=== PATIENT | male | born 1940 | race Caucasian/White ===

== ENCOUNTER 2020-10-16 10:06 | Day surgery (SDC) | payer MEDICARE, OTHER ==
--- NOTE | 2020-10-13 14:58 | HP ---
DATE OF SURGERY: 10/16/2020 HISTORY OF PRESENT ILLNESS: The patient presents with a pilonidal cyst. He states this has been going on for years. He has been having symptoms on and off. He wishes for surgical intervention. PAST MEDICAL HISTORY: Hypertension, hyperlipidemia, coronary artery disease, diabetes. PAST SURGICAL HISTORY: None recent. ALLERGIES: NKDA. MEDICATIONS: Amlodipine, aspirin, atorvastatin, carvedilol, Plavix, fluticasone, Glipizide, hydralazine, Invokana, isosorbide, losartan, triamterene, hydrochlorothiazide. FAMILY HISTORY: None reported. SOCIAL HISTORY: None reported. REVIEW OF SYSTEMS: CONSTITUTIONAL: Denies fever or chills. CHEST: Denies shortness of breath. CVS: Denies chest pain. ABDOMEN: Denies abdominal pain, nausea, vomiting, diarrhea, constipation or rectal bleeding. INTEGUMENTARY: Pilonidal cyst. PHYSICAL EXAMINATION: GENERAL: No acute distress. CHEST: Nonlabored. No shortness of breath. CVS: Regular rate and rhythm. : Pilonidal cyst. EXTREMITIES: No edema. NEUROLOGIC: Alert. PSYCHIATRIC: Appropriate. 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 PLAN: Excision of pilonidal cyst with Dr. Phillip Mcfadden. As dictated by Nani Morales NP.
[~2020-10-16 10:06] MED LIST: Lactated Ringers 1,000 ML IV ONE; Sensorcaine 0.25% 10 ML ONE
[2020-10-16] MEDS ORDERED: Lactated Ringers 1,000 ML IV ONE (10:37)
[2020-10-16 10:56] LABS: Hematocrit 44.3 % (42-50); Hemoglobin 14.8 gm/dl (12.5-18.0); Mean Cell Volume 100.9 fl (78-100); Mean Corpuscular Hemoglobin 33.7 pg (26-32); Mean Corpuscular Hgb Concent. 33.4 g/dl (32-36); Mean Platelet Volume 10.7 fl (7.5-11.0); Platelet Count 216 K/mm3 (150-450); Red Blood Count 4.39 M/mm3 (4.1-5.6); Red Cell Distribution Width 13.2 % (11.5-14.0)
[2020-10-16] MEDS ORDERED: Lactated Ringers 1,000 ML IV SCH (11:00)
[2020-10-16 11:26] LABS: ALBUMIN 3.9 g/dL (3.5-5.0); ANION GAP 8.8 MEQ/L (5-15); BILIRUBIN,TOTAL 1.1 mg/dL (0.2-1.3); Calcium 9.2 mg/dL (8.4-10.2); Creatinine 1 1.51 mg/dL (0.66-1.25); EST GLOMERULAR FILTRATION RATE 47.9 ML/MIN; Potassium 4.5 mmol/L (3.5-5.1); Total Protein 6.8 g/dL (6.3-8.2)
[2020-10-16] MEDS ORDERED: Versed 2 MG/2 ML Injection ONE (12:58)
[2020-10-16] MEDS ORDERED: SUBLIMAZE 100 MCG/2 ML ONE (12:58)
[2020-10-16] MEDS ORDERED: Quelicin Fliptop 200 MG/10 ML ONE (12:58)
[2020-10-16] MEDS ORDERED: DIPRIVAN 200 MG/20 ML IV ONE (12:58)
[2020-10-16] MEDS ORDERED: KEFZOL 1 GM ONE (13:15)
[2020-10-16] MEDS ORDERED: Zemuron 100 MG/10 ML ONE (13:15)
[2020-10-16] MEDS ORDERED: BRIDION 200MG/2ML IV ONE (13:28)
--- NOTE | 2020-10-16 14:27 | OP ---
SURGERY DATE/TIME: 10/16/2020 1256 PREOPERATIVE DIAGNOSIS: Pilonidal cyst asymptomatic. POSTOPERATIVE DIAGNOSIS: Pilonidal cyst asymptomatic. PROCEDURE: Incision pilonidal cyst and sinuses. SURGEON: Phillip Mcfadden M.D. ANESTHESIA: General. COMPLICATIONS: None. POSITION: Prone. CONDITION: Stable. INDICATION: The patient has symptomatic pilonidal disease. He has a tract and a boil in the lower midline in the pilonidal area. DESCRIPTION OF PROCEDURE: He was taken to surgery. Prone position. Routine prep and drape. Elliptical excision. It had to be extended a little bit left and cephalad to remove the lateral infected tract. All pilonidal disease removed from the presacral fascia. Hemostasis obtained with electrocautery. It was packed with 0.25 inch Iodoform. It looked excellent. The patient tolerated the procedure well.
[2020-10-16 14:52] VITALS: BP 159/82; PULSE 56; O2SAT 96
== END 2020-10-16 15:02 | disposition home or self-care (01) ==
LOC: SDC 10:06
PROVIDERS: ATTEND Surgery
DX: L05.91 Pilonidal cyst without abscess (principal); I10 Essential (primary) hypertension; E78.5 Hyperlipidemia, unspecified; E11.9 Type 2 diabetes mellitus without complications; Z79.899 Other long term (current) drug therapy
CPT/HCPCS: 36415; 80053; 82947; 85027; 87070; J0330; J0690; J2250; J2704; J3010

== ENCOUNTER 2023-11-18 00:47 | Emergency (ER) | payer MEDICARE, OTHER ==
--- NOTE | 2023-11-18 00:58 | ERPHSYRPT ---
- History of Present Illness Time Seen by Provider: 11/18/23 00:57 Source: patient, EMS Exam Limitations: no limitations Physician History: This is an 82-year-old white male patient of Dr. Corbett and railroad police Dr. Tera Louis and presents to the emergency department soon after he fell. The patient got up to use the restroom and tripped over at table that was on rollers fell forward hitting his head and face on the right side. He states he did not lose consciousness. Patient denies chest pain. Patient denies shortness of breath. Patient denies abdominal pain. Patient has swelling around the right eye and has tenderness and bruising in the right cheek. Patient is obese. He has a history of diabetes, hypertension, chronic renal disease (Dr. Baez) and coronary artery disease. Patient is on Plavix. Patient has a history of chronic angina. Occurred: just prior to arrival Reason for Fall: tripped, fell from standing pos Injuries/Pain Location: head, face Loss of Consciousness: no loss of consciousness Severity of Pain-Max: none Severity of Pain-Current: none Associated Symptoms (Fall): denies symptoms Allergies/Adverse Reactions: morphine Adverse Reaction (Intermediate, Verified 11/18/23 00:50) Itching Home Medications: Amlodipine Besylate 5 mg [Norvasc 5 mg] 5 mg PO DAILY 10/07/20 [History] Glipizide Xl mg [Glucotrol Xl] 10 mg PO BID 10/07/20 [History] Isosorbide Mononitrate 30 mg [Imdur 30 MG] 90 mg PO DAILY 10/07/20 [History] Losartan Potassium 50 mg [Cozaar 50 MG] 50 mg PO BID 10/07/20 [History] Nitroglycerin 0.4 mg Tablet [Nitrostat 0.4 MG Tablet] 0.4 mg SL UD 10/07/20 [History] Atorvastatin Calcium 10 mg PO DAILY 11/18/23 [History] Carvedilol 12.5 mg [Coreg 12.5 mg] 25 mg PO BID 11/18/23 [History] Clopidogrel Bisulfate [Plavix] 75 mg PO DAILY 11/18/23 [History] Furosemide 20 mg [Lasix 20 mg] 20 mg PO DAILY 11/18/23 [History] Glipizide 10 mg [Glucotrol 10 MG] 10 mg PO BID 11/18/23 [History] Omeprazole 20 mg PO DAILY 11/18/23 [History] Pentoxifylline 400 mg PO DAILY 11/18/23 [History] Ranolazine 500 MG [Ranexa 500 MG] 1,000 mg PO BID 11/18/23 [History] Hx Tetanus, Diphtheria Vaccination/Date Given: Yes Hx Influenza Vaccination/Date Given: Yes Hx Pneumococcal Vaccination/Date Given: Yes Travel Risk - International Travel Have you traveled outside of the country in past 3 weeks: No - Coronavirus Screening Are you exhibiting any of the following symptoms?: No Close contact with a COVID-19 positive Pt in past 14-21 Days: No - Review of Systems Constitutional: No Symptoms Eyes: No Symptoms Ears, Nose, & Throat: No Symptoms Respiratory: No Symptoms Cardiac: No Symptoms Abdominal/Gastrointestinal: No Symptoms Genitourinary Symptoms: No Symptoms Musculoskeletal: No Symptoms Skin: Other Neurological: No Symptoms (Bruising and swelling around the right eye and on the right cheek) Psychological: No Symptoms Endocrine: No Symptoms Hematologic/Lymphatic: No Symptoms Immunological/Allergic: No Symptoms All Other Systems: Reviewed and Negative - Past Medical History Pertinent Past Medical History: Yes Neurological History: Peripheral Neuropathy ENT History: No Pertinent History Cardiac History: Angina, Hypertension Respiratory History: No Pertinent History Endocrine Medical History: Diabetes Type II Musculoskeletal History: No Pertinent History, Osteoarthritis GI Medical History: No Pertinent History History: Other Psycho-Social History: No Pertinent History Male Reproductive Disorders: Prostate Cancer Other Medical History: 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 R TSA, PAST CARDIAC REHAB. 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 mesh to right flank area. - Social History Smoking Status: Never smoker Exposure to second hand smoke: No Drug Use: none Patient Lives Alone: No - Nursing Vital Signs Nursing Vital Signs: Initial Vital Signs Temperature 98.9 F 11/18/23 00:47 Pulse Rate 60 11/18/23 00:47 Respiratory Rate 18 11/18/23 00:47 Blood Pressure 91/49 11/18/23 00:47 O2 Sat by Pulse Oximetry 95 11/18/23 00:47 Pain Scale Pain Intensity 0 - Opp Coma Score Best Eye Response (Opp): (4) open spontaneously Best Verbal Response (Shoshana): (5) oriented Best Motor Response (Opp): (6) obeys commands Shoshana Total: 15 - Physical Exam General Appearance: no apparent distress, alert, obese Head Injury: ecchymosis (Around right eye and on right cheek), swelling (Around right eye and on right cheek), tenderness (Around right eye and on right cheek) Eye Exam: PERRL/EOMI, eyes nml inspection ENT Exam: airway nml, hearing grossly normal, No evidence of ENT injury, No hemotympanum Neck Exam: supple, trachea midline, full range of motion, normal alignment, normal inspection Respiratory/Chest Exam: normal breath sounds, No chest tenderness, No respirat ory distress, No ecchymosis, No crepitus Cardiovascular Exam: normal heart sounds, regular rate/rhythm Gastrointestinal Exam: soft, normal bowel sounds, No tenderness Back Exam: normal inspection, normal range of motion, No CVA tenderness, No vertebral tenderness Extremity Exam: normal inspection, normal range of motion, pelvis stable Neurologic Exam: alert, oriented x 3, cooperative, spring repairer helper hand II-XII nml as tested, normal mood/affect, sensation nml Skin Exam: normal color, warm, dry, ecchymosis (Tenderness and swelling as stated above) SpO2 Interpretation: normal O2 Delivery: Room Air - Course Nursing assessment & vital signs reviewed: Yes EKG Interpreted by Me: RATE (56), Sinus Rhythm, NORMAL AXIS, NORMAL INTERVALS, Right Bundle Branch Block, Non-specific ST Changes, Other (No acute ischemic changes on today's twelve-lead EKG) Ordered Tests: Active Orders 24 hr Category Date Time Status Zig Zag Stitcher STAT Care 11/18/23 00:59 Active EKG-ER Only STAT Care 11/18/23 00:58 Active IV Insertion STAT Care 11/18/23 00:58 Active CERVICAL SPINE WO CONTRAST [CT] Stat Exams 11/18/23 01:34 Completed FACIAL BONES WO CONTRAST [CT] Stat Exams 11/18/23 01:30 Completed HEAD WITHOUT CONTRAST [CT] Stat Exams 11/18/23 01:30 Completed CBC W DIFF Stat Lab 11/18/23 01:20 Completed CMP Stat Lab 11/18/23 01:20 Completed ETHYL ALCOHOL Stat Lab 11/18/23 01:20 Completed MAGNESIUM Stat Lab 11/18/23 01:20 Completed NT PRO BNPII Stat Lab 11/18/23 01:20 Completed TROPONIN Q4H Lab 11/18/23 01:20 Completed TROPONIN Q4H Lab 11/18/23 04:22 Completed TROPONIN Q4H Lab 11/18/23 09:00 Ordered UA W/RFX UR CULTURE Stat Lab 11/18/23 05:07 Completed Medication Summary Generic Name Dose Route Start Last Admin Trade Name Freq PRN Reason Stop Dose Admin Sodium Chloride 500 mls @ 500 mls/hr 11/18/23 08:21 Sodium Chloride 0.9% 500 Ml IV 11/18/23 09:20 .Q1H ONE Discontinued Medications Generic Name Dose Route Start Last Admin Trade Name Freq PRN Reason Stop Dose Admin Enoxaparin Sodium 105 mg 11/18/23 08:09 11/18/23 08:18 Enoxaparin Sodium 120 Mg/0.8 Ml Syringe SQ 11/18/23 08:10 105 mg 1XONLY ONE Administration Enoxaparin Sodium Confirm 11/18/23 08:15 Enoxaparin Sodium 120 Mg/0.8 Ml Syringe Administered 11/18/23 08:16 Dose 120 mg SQ .STK-MED ONE Furosemide 40 mg 11/18/23 04:28 11/18/23 04:46 Furosemide 40 Mg/4 Ml Vial IV 11/18/23 04:29 40 mg STAT ONE Administration Furosemide Confirm 11/18/23 04:45 Furosemide 40 Mg/4 Ml Vial Administered 11/18/23 04:46 Dose 40 mg .ROUTE .STK-MED ONE Lab/Rad Data: Laboratory Result Diagrams 11/18/23 01:20 11/18/23 01:20 Laboratory Results 11/18/23 11/18/23 11/18/23 Range/Units 05:07 04:22 01:20 WBC (4.0-10.5) x10^3/uL RBC (4.1-5.6) x10^6/uL Hgb (12.5-18.0) g/dL Hct (42-50) % MCV (78-100) fL MCH (26-32) pg MCHC (32-36) g/dL RDW (11.5-14.0) % Plt Count (150-450) x10^3/uL MPV (7.5-11.0) fL Gran % (36.0-66.0) % Immature Gran % (Auto) (0.00-0.4) % Nucleat RBC Rel Count (0.00-0.1) % Eos # (Auto) (0-0.5) x10^3/uL Immature Gran # (Auto) (0.00-0.03) x10^3u/L Absolute Lymphs (auto) (1.0-4.6) x10^3/uL Absolute Monos (auto) (0.0-1.3) x10^3/uL Absolute Nucleated RBC (0.00-0.01) x10^3u/L Lymphocytes % (24.0-44.0) % Monocytes % (0.0-12.0) % Eosinophils % (0.00-5.0) % Basophils % (0.0-0.4) % Absolute Granulocytes (1.4-6.9) x10^3/uL Basophils # (0-0.4) x10^3/uL Sodium (137-145) mmol/L Potassium (3.5-5.1) mmol/L Chloride (98-107) mmol/L Carbon Dioxide (22-30) mmol/L Anion Gap (5-15) MEQ/L BUN (9-20) mg/dL Creatinine (0.66-1.25) mg/dL Estimated GFR ML/MIN Glucose (74-106) mg/dL Calcium (8.4-10.2) mg/dL Magnesium (1.6-2.3) mg/dL Total Bilirubin (0.2-1.3) mg/dL AST (17-59) U/L ALT (0-50) U/L Alkaline Phosphatase (38-126) U/L Troponin I 3.750 H* 4.390 H* (0.000-0.034) ng/mL NT-Pro-B Natriuret Pep (<300) pg/mL Serum Total Protein (6.3-8.2) g/dL Albumin (3.5-5.0) g/dL Urine Color Dark Yellow (Yellow) Urine Appearance Clear (Clear) Urine pH 5.0 (4.6-8.0) Ur Specific [place] 1.025 (1.005-1.030) Urine Protein 30 (Negative) Urine Glucose (UA) Negative (Negative) mg/dL Urine Ketones Trace A (Negative) Urine Blood Negative (Negative) Urine Nitrite Negative (Negative) Urine Bilirubin Negative (Negative) Urine Urobilinogen 1.0 A (0.2) mg/dL Ur Leukocyte Esterase Negative (Negative) U Hyaline Cast (Auto) 6-10 A (0-2) /LPF Urine Microscopic RBC 0-2 (0-5) /HPF Urine Microscopic WBC 0-2 (0-5) /HPF Ur Epithelial Cells None Seen (None Seen) /HPF Urine Bacteria None Seen (None Seen) /HPF Urine Culture Reflexed NO (NO) Ethyl Alcohol (0-10) mg/dL 11/18/23 11/18/23 Range/Units 01:20 01:20 WBC 6.2 (4.0-10.5) x10^3/uL RBC 3.17 L (4.1-5.6) x10^6/uL Hgb 10.8 L (12.5-18.0) g/dL Hct 33.3 L (42-50) % MCV 105.0 H (78-100) fL MCH 34.1 H (26-32) pg MCHC 32.4 (32-36) g/dL RDW 13.5 (11.5-14.0) % Plt Count 159 (150-450) x10^3/uL MPV 10.6 (7.5-11.0) fL Gran % 80.6 H (36.0-66.0) % Immature Gran % (Auto) 0.8 H (0.00-0.4) % Nucleat RBC Rel Count 0.0 (0.00-0.1) % Eos # (Auto) 0.02 (0-0.5) x10^3/uL Immature Gran # (Auto) 0.05 H (0.00-0.03) x10^3u/L Absolute Lymphs (auto) 0.59 L (1.0-4.6) x10^3/uL Absolute Monos (auto) 0.52 (0.0-1.3) x10^3/uL Absolute Nucleated RBC 0.00 (0.00-0.01) x10^3u/L Lymphocytes % 9.6 L (24.0-44.0) % Monocytes % 8.4 (0.0-12.0) % Eosinophils % 0.3 (0.00-5.0) % Basophils % 0.3 (0.0-0.4) % Absolute Granulocytes 4.96 (1.4-6.9) x10^3/uL Basophils # 0.02 (0-0.4) x10^3/uL Sodium 134 L (137-145) mmol/L Potassium 4.0 (3.5-5.1) mmol/L Chloride 105 (98-107) mmol/L Carbon Dioxide 24 (22-30) mmol/L Anion Gap 8.8 (5-15) MEQ/L BUN 36 H (9-20) mg/dL Creatinine 1.74 H (0.66-1.25) mg/dL Estimated GFR 39.1 ML/MIN Glucose 142 H (74-106) mg/dL Calcium 8.6 (8.4-10.2) mg/dL Magnesium 2.0 (1.6-2.3) mg/dL Total Bilirubin 0.90 (0.2-1.3) mg/dL AST 40 (17-59) U/L ALT 21 (0-50) U/L Alkaline Phosphatase 64 (38-126) U/L Troponin I (0.000-0.034) ng/mL NT-Pro-B Natriuret Pep 3120 (<300) pg/mL Serum Total Protein 6.3 (6.3-8.2) g/dL Albumin 3.4 L (3.5-5.0) g/dL Urine Color (Yellow) Urine Appearance (Clear) Urine pH (4.6-8.0) Ur Specific [place] (1.005-1.030) Urine Protein (Negative) Urine Glucose (UA) (Negative) mg/dL Urine Ketones (Negative) Urine Blood (Negative) Urine Nitrite (Negative) Urine Bilirubin (Negative) Urine Urobilinogen (0.2) mg/dL Ur Leukocyte Esterase (Negative) U Hyaline Cast (Auto) (0-2) /LPF Urine Microscopic RBC (0-5) /HPF Urine Microscopic WBC (0-5) /HPF Ur Epithelial Cells (None Seen) /HPF Urine Bacteria (None Seen) /HPF Urine Culture Reflexed (NO) Ethyl Alcohol < 10 (0-10) mg/dL - Progress Progress Note: 11/18/23 04:32 This patient's medical issue is 1 of moderate to high complexity. Level complex in the workup performed is based on review the patient's past medical history, review of patient's medication list, review of patient drug allergy list, h istory of present illness and physical findings on examination. Workup in this patient includes placement of intravenous line, CT scan of the head face and cervical spine. Twelve-lead EKG, troponin level, BNP level, urinalysis, CBC, CMP and magnesium level. The CT scans were all interpreted by the radiologist and I reviewed the impression: CT scan of the head without contrast shows age-related involutional changes with mild microvascular ischemic changes. There is no calvarial fracture or in tracranial or extra-axial hematoma. CT scan of the facial bones without contrast shows no definite maxillofacial bone fractures or dislocations. There is evidence of bilateral sinusitis. CT scan of cervical spine without contrast shows no acute fracture or subluxation. There is multilevel degenerative changes present. 11/18/23 08:04 Patient's spouse provided additional, independent history. She came later after the ambulance/paramedics dropped this patient off and provided additional history. Patient actually has chronic intermittent angina. She states that he has been taking nitroglycerin often. This is in contrast with patient stating he does not have chest pain. 11/18/23 08:12 I did speak with Dr. Tera Louis, the patient's railroad police in consultation. He stated to give a single subcutaneous dose of Lovenox at 1 mg/kg at this time subcutaneously. He is going to speak with the [facility] transfer center and admitting. They are to call us back when a potential bed is available. He stated that if the hospital is unable to accommodate us in transfer relatively soon, we may need to discuss transfer of this patient to [facility] and use a different cardiology group. 11/18/23 09:[address] the [facility] hospitalist, Dr. Peres, regarding this patient. I reviewed the patient history, presenting complaint, physical findings, workup and results. I also spoke with him regarding the discussion I had with Dr. Louis, the patient's railroad police. Dr. Walls that he is also spoken with Dr. Louis. The plan is for this patient to undergo cardiac catheterization tomorrow, 11/19/2023. Patient has been accepted to [facility] and will be transferred when a bed becomes available. We will continue every 12 hour Lovenox subcutaneously and continue monitoring here in the emergency department. 11/18/23 09:20 Counseled pt/family regarding: lab results, diagnosis, rad results Medical Desision Making - Independent Historian Additional History obtained from: Spouse - Diagnostic Testing Diagnostic test were ordered, analyzed, and reviewed by me: Yes Radiological Interpretation: Reviewed by me, Teleradiologist Report - Risk of complications The pt has a high risk of morbidity or mortality based on: Decision regarding hospitilization or escalation of hosp level of care - Departure Departure Disposition: Transfer Clinical Impression: Fall with no significant injury, Elevated troponin, Elevated brain natriuretic peptide (BNP) level, Non-STEMI (non-ST elevated myocardial infarction) Condition: Fair Critical Care Time: No Referrals: CRIS CORBETT [Primary Care Provider] - Follow up/PCP as directed
[2023-11-18 01:00] VITALS: TEMP 98.9
[2023-11-18 01:24] LABS: Absolute Neutrophil Ct (ANC) 4.96 x10^3/uL (1.4-6.9); BASOPHIL % 0.3 % (0.0-0.4); Basophil (Absolute #) 0.02 x10^3/uL (0-0.4); Eosinophil % 0.3 % (0.00-5.0); Eosinophil (Absolute #) 0.02 x10^3/uL (0-0.5); Hematocrit 33.3 % (42-50); Hemoglobin 10.8 g/dL (12.5-18.0); IMMATURE GRAN # 0.05 x10^3u/L (0.00-0.03); IMMATURE GRAN % 0.8 % (0.00-0.4); Lymphocyte (Absolute #) 0.59 x10^3/uL (1.0-4.6); Lymphocytes % 9.6 % (24.0-44.0); Mean Corpuscular Hemoglobin 34.1 pg (26-32); Mean Corpuscular Hgb Concent. 32.4 g/dL (32-36); Mean Platelet Volume 10.6 fL (7.5-11.0); Monocyte (Absolute #) 0.52 x10^3/uL (0.0-1.3); Monocytes % 8.4 % (0.0-12.0); Neutrophil % 80.6 % (36.0-66.0); Platelet Count 159 x10^3/uL (150-450); Red Blood Count 3.17 x10^6/uL (4.1-5.6); Red Cell Distribution Width 13.5 % (11.5-14.0); White Blood Count 6.2 x10^3/uL (4.0-10.5)
[2023-11-18 01:50] LABS: ALBUMIN 3.4 g/dL (3.5-5.0); ALKALINE PHOSPHATASE 64 U/L (38-126); ANION GAP 8.8 MEQ/L (5-15); BLOOD UREA NITROGEN 36 mg/dL (9-20); CHLORIDE 105 mmol/L (98-107); Calcium 8.6 mg/dL (8.4-10.2); Carbon Dioxide 24 mmol/L (22-30); Creatinine 1 1.74 mg/dL (0.66-1.25); EST GLOMERULAR FILTRATION RATE 39.1 ML/MIN; ETHYL ALCOHOL < 10 mg/dL (0-10); Glucose 142 mg/dL (74-106); NT PRO BNPII 3120 pg/mL (<300); SGOT/AST 40 U/L (17-59); SGPT/ALT 21 U/L (0-50); SODIUM 134 mmol/L (137-145); Total Protein 6.3 g/dL (6.3-8.2)
--- NOTE | 2023-11-18 02:17 | XRAY ---
CLINICAL HISTORY:Fall injury COMPARISON:04/18/2015 TECHNIQUE:Axial non-contrast CT scan of the brain was performed from the skull base to the high parietal region. FINDINGS: No definite calvarial fractures. No intracerebral or extra axial hematoma. Relatively accentuated bilateral cerebral periventricular deep white matter hypodensities with scattered tiny hypodense foci suggestive of microvascular ischemic changes. Dougherty-white matter differentiation is maintained. Normal CT appearance of the posterior fossa structures namely the cerebellar hemispheres, brainstem, and cerebellar peduncles. Dilated ventricular system, cortical sulci, and extra-axial CSF spaces No midline shifts or deformity. The osseous structures in the skull base are unremarkable. Prominent occipital protuberance. The scanned paranasal sinuses show bilateral maxillary antrostomy, ethmoidectomies, and middle turbinectomy with mild lamellar and focal mucosal thickening of the maxillary antra, ethmoidal air cells, and sphenoid sinuses. IMPRESSION: 1. No calvarial fractures, intracerebral or extra axial hematoma. 2. Age-related brain involutional changes with mild microvascular ischemic changes have progressed since the last study. Electronically Signed by: Carmita Stein MD. (11/18/2023 02:12:56 EST)
--- NOTE | 2023-11-18 02:39 | XRAY ---
CLINICAL HISTORY:Fall injury COMPARISON:None. TECHNIQUE:An axial non-contrast CT scan of the facial bones was performed, with sagittal and coronal multiplanar reconstruction. Images were sent to PACs for interpretation. FINDINGS: Right sharon-orbital subcutaneous edema/thickening is most evident along the zygomatic-orbital and fronto-orbital regions. No definite fractures were noted with preserved integrity of the maxillary bones, orbital farrell, pterygoid plates, zygomatic arches, alveolar ridge and mandible. Normal temporomandibular joints. The nasal bones are intact with no fractures. Sharon-apical lucent cyst seen related to the root of the right upper 1st molar tooth bulging into the right maxillary antrum and measuring about 1 x 0.6 cm A well-defined ovoid nodule is seen at the right side of the cheek involving the subcutaneous tissue and related to the skin measuring 9 x 7 mm. Evidence of bilateral maxillary antrostomy, ethmoidectomies and middle turbinectomy. Mild lamellar and focal mucosal thickening of the maxillary antra, ethmoidal air cells and sphenoid sinuses. Subtle bowing of the nasal septum convex to the right side with the focal thing of the inferior aspect of its cartilaginous segment. IMPRESSION: 1. No definite fractures of the maxillo-facial bones. 2. Sharon-apical lucent cyst related to the right upper 1st molar tooth root. 3. Right cheek subcutaneous nodule, possibly sebaceous cyst. Advise clinical correlation. 4. Bilateral maxillary, ethmoidal and sphenoidal sinusitis. Electronically Signed by: Carmita Stein MD. (11/18/2023 02:34:27 EST)
--- NOTE | 2023-11-18 02:48 | XRAY ---
CLINICAL HISTORY:Fall injury COMPARISON:None. TECHNIQUE:Thin axial CT of the cervical spine was performed with sagittal and coronal reconstructions without contrast. FINDINGS: Straightening of the cervical spine possibly due to neck muscle spasm. Minimal spondylolisthesis of C3 over C4 and C4 over C5 vertebrae. No definite fractures or subluxation noted. Normal atlano-occiptal articulation. The vertebral bodies are normal in height. No lytic or sclerotic bone lesion. Preserved bony spiny canal Degenerative changes of the atlanoaxial articulation and subaxial spine. Narrowed C5-C6 and C6-C7 disc heights and partial narrowing of C2-C3 and C4-C5 disc heights. Multilevel facet joint arthropathy. Calcificaiton of the ligamentum nuchae. Vertebral artery calcification is noted. Level by Level analysis: C2-C3: Mild uncovertebral hypertrophy with mild neuroforaminal stenosis. No central canal stenosis. C3-C4: No central canal or neuroforaminal stenosis. C4-C5: Mild uncovertebral hypertrophy with mild right neuroforaminal stenosis. No central canal stenosis. C5-C6: small posterior disc-osteophyte complex. No significant central canal or neuroforaminal stenosis. C6-C7: disc calcification with no central canal or neuroforaminal stenosis. IMPRESSION: 1. No definite fractures or dislocations were noted. 2. Straightening of the cervical spine possibly due to neck muscle spasm. 3. C3-C4 and C4-C5 grade I spondylolisthesis. 4. Degenerative changes of the cervical spine and multilevel disc space narrowing. 5. Multilevel facet joint arthropathy. Electronically Signed by: Carmita Stein MD. (11/18/2023 02:43:04 EST)
[2023-11-18] MEDS ORDERED: Lasix 40 MG/4 ML IV ONE (04:28)
[2023-11-18] MEDS ORDERED: Lasix 40 MG/4 ML ONE (04:45)
[2023-11-18 05:41] LABS: Appearance Clear (Clear); Bacteria None Seen /HPF (None Seen); Bilirubin Negative (Negative); Blood Negative (Negative); Epithelial Cells None Seen /HPF (None Seen); Glucose, Urine Negative (Negative); Ketones Trace (Negative); Leukocyte Esterase Negative (Negative); Nitrite Negative (Negative); Protein,Urine Dip 30 (Negative); RBC 0-2 /HPF (0-5); Specific Gravity 1.025 (1.005-1.030); WBC 0-2 /HPF (0-5)
[2023-11-18 05:42] LABS: ADD URINE CULTURE? NO (NO)
[2023-11-18] MEDS ORDERED: ENOXAPARIN SODIUM SQ ONE ×2 (08:09→08:15)
[2023-11-18] MEDS ORDERED: Sodium Chloride 0.9% 500 ML 500 ML IV ONE (08:21)
[2023-11-18] MEDS ORDERED: Sodium Chloride 0.9% 500 ML 0 ML IV ONE (10:10)
[2023-11-18 15:41] VITALS: BP 123/53; RESP 17
[2023-11-18 17:25] LABS: ALBUMIN 3.6 g/dL (3.5-5.0); ANION GAP 10.6 MEQ/L (5-15); BILIRUBIN,TOTAL 0.6 mg/dL (0.2-1.3); Calcium 8.7 mg/dL (8.4-10.2); Creatinine 1 2.07 mg/dL (0.66-1.25); EST GLOMERULAR FILTRATION RATE 31.8 ML/MIN; Potassium 3.7 mmol/L (3.5-5.1); Total Protein 6.6 g/dL (6.3-8.2)
[2023-11-18 18:12] VITALS: PULSE 66; O2SAT 91
== END 2023-11-18 18:34 | disposition short-term general hospital (02) ==
LOC: ED 00:47
DX: Z04.3 Encounter for examination and observation following other accident (principal); I21.4 Non-ST elevation (NSTEMI) myocardial infarction; R79.89 Other specified abnormal findings of blood chemistry; I12.9 Hypertensive chronic kidney disease with stage 1 through stage 4 chronic kidney disease, or unspecified chronic kidney disease; E11.22 Type 2 diabetes mellitus with diabetic chronic kidney disease; N18.9 Chronic kidney disease, unspecified; E11.42 Type 2 diabetes mellitus with diabetic polyneuropathy; Z79.02 Long term (current) use of antithrombotics/antiplatelets; Z79.84 Long term (current) use of oral hypoglycemic drugs; Z79.899 Other long term (current) drug therapy
CPT/HCPCS: 36000; 36415; 70450; 70486; 72125; 80053; 81001; 82077; 83735; 83880; 84484; 85025; 93005; 93041; 96372; 96374; 99285; J1650; J1940

== ENCOUNTER 2024-04-17 06:03 | Day surgery (SDC) | payer MEDICARE, OTHER ==
[2024-04-17 06:21] VITALS: RESP 18
[2024-04-17] MEDS ORDERED: Lactated Ringers 1,000 ML IV ONE (06:23)
[2024-04-17 06:34] LABS: Absolute Neutrophil Ct (ANC) 3.64 x10^3/uL (1.4-6.9); BASOPHIL % 0.4 % (0.0-0.4); Basophil (Absolute #) 0.02 x10^3/uL (0-0.4); Eosinophil % 3.7 % (0.00-5.0); Eosinophil (Absolute #) 0.19 x10^3/uL (0-0.5); Hematocrit 35.9 % (42-50); Hemoglobin 12.1 g/dL (12.5-18.0); IMMATURE GRAN # 0.04 x10^3u/L (0.00-0.03); IMMATURE GRAN % 0.8 % (0.00-0.4); Lymphocyte (Absolute #) 0.81 x10^3/uL (1.0-4.6); Lymphocytes % 15.8 % (24.0-44.0); Mean Corpuscular Hemoglobin 33.7 pg (26-32); Mean Corpuscular Hgb Concent. 33.7 g/dL (32-36); Mean Platelet Volume 10.4 fL (7.5-11.0); Monocyte (Absolute #) 0.44 x10^3/uL (0.0-1.3); Monocytes % 8.6 % (0.0-12.0); Neutrophil % 70.7 % (36.0-66.0); Platelet Count 186 x10^3/uL (150-450); Red Blood Count 3.59 x10^6/uL (4.1-5.6); Red Cell Distribution Width 13.6 % (11.5-14.0); White Blood Count 5.1 x10^3/uL (4.0-10.5)
[2024-04-17] MEDS: Lactated Ringers 1,000 ML IV SCH (06:45)
[2024-04-17 06:52] LABS: ANION GAP 11.5 MEQ/L (5-15); BILIRUBIN,TOTAL 1.1 mg/dL (0.2-1.3); Calcium 9.8 mg/dL (8.4-10.2); Creatinine 1 1.37 mg/dL (0.66-1.25); EST GLOMERULAR FILTRATION RATE 51.8 ML/MIN; Potassium 4.1 mmol/L (3.5-5.1)
[2024-04-17] MEDS ORDERED: DIPRIVAN 200 MG/20 ML IV ONE ×2 (07:31→07:53)
[2024-04-17 08:42] VITALS: TEMP 96.3
[2024-04-17 08:49] LABS: Hematocrit 34.8 % (42-50); Hemoglobin 11.8 g/dL (12.5-18.0); Mean Cell Volume 100.9 fL (78-100); Mean Corpuscular Hemoglobin 34.2 pg (26-32); Mean Corpuscular Hgb Concent. 33.9 g/dL (32-36); Mean Platelet Volume 10.4 fL (7.5-11.0); Platelet Count 183 x10^3/uL (150-450); Red Blood Count 3.45 x10^6/uL (4.1-5.6); Red Cell Distribution Width 13.8 % (11.5-14.0); White Blood Count 5.5 x10^3/uL (4.0-10.5)
--- NOTE | 2024-04-17 08:56 | OP ---
SURGERY DATE/TIME: 04/17/2024 0729 PREOPERATIVE DIAGNOSIS: Rectal bleeding. POSTOPERATIVE DIAGNOSIS: Moderate sigmoid diverticulosis and multiple small colon polyps. PROCEDURE: Colonoscopy with combination of hot forceps and cold snare polypectomies. SURGEON: Dr. Burnett. ANESTHESIA: Medications given by anesthesia department. HISTORY: The patient is an 83-year-old white male patient who has been having problems with some rectal bleeding issues. It is of note that he has had previous radiation to his prostate area for prostate cancer. The patient was felt the need to have endoscopic evaluation to be sure that he had no other polyps, lesions or cancer at this time. The patient was appraised of the risks of the procedure including the risk of perforation, phlebitis, untoward reaction to medication, bleeding and missed lesions. The patient verbalized his understanding and desired to have the procedure performed. DESCRIPTION OF PROCEDURE: The patient was given the medications by the anesthesia department. He had continuous pulse oximetry, ECG monitoring and intermittent blood pressure monitoring during the examination. The patient was placed in the left lateral decubitus position. Digital rectal examination revealed surgically absent prostate. No polyps or masses were felt at this time. The flexible Olympus pediatric colonoscope was used to intubate the rectum. A view of the colon developed sequentially to the cecum. Upon insertion and withdrawal was noted multiple small polyps and these were biopsied using a combination of hot and cold forceps removal and the lesions were approximately 0.5 to 0.7 cm in size. There was one larger polyp that measured approximately 1.2 cm in size, which was removed using cold snare technique. The fragments of the polyp were collected and sent to pathology for further evaluation. No other mucosal lesions being noted at this time, the scope was removed from the patient who tolerated the procedure well and was sent back to OP recovery in good condition. I note that the patient did have some slight oozing of blood that flushed clear during the procedure. The prep was noted to be fair.
[2024-04-17 08:58] VITALS: BP 165/52; PULSE 59; O2SAT 96
== END 2024-04-17 09:04 | disposition home or self-care (01) ==
LOC: SDC 06:03
PROVIDERS: ATTEND Family Medicine
DX: D12.2 Benign neoplasm of ascending colon (principal); D12.4 Benign neoplasm of descending colon; D12.3 Benign neoplasm of transverse colon; K62.5 Hemorrhage of anus and rectum; K57.30 Diverticulosis of large intestine without perforation or abscess without bleeding; N18.9 Chronic kidney disease, unspecified; I25.10 Atherosclerotic heart disease of native coronary artery without angina pectoris
CPT/HCPCS: 36415; 80053; 85025; 85027; 93005; 99100; J2704

== ENCOUNTER 2024-05-01 11:18 | Observation (INO) | payer MEDICARE, OTHER ==
[2024-05-01] MEDS ORDERED: Sodium Chloride 0.9% 1000 ML 1,000 ML ONE (12:05)
[2024-05-01] MEDS: Sodium Chloride 0.9% 1000 ML 1,000 ML IV SCH (12:08)
[2024-05-01 12:30] LABS: Absolute Neutrophil Ct (ANC) 8.32 x10^3/uL (1.78-5.38); BASOPHIL % 0.5 % (0.2-1.2); Basophil (Absolute #) 0.05 x10^3/uL (0.01-0.08); Eosinophil % 0.7 % (0.8-7.0); Eosinophil (Absolute #) 0.07 x10^3/uL (0.04-0.54); Hematocrit 30.5 % (40.1-51.0); Hemoglobin 10.4 g/dL (13.7-17.5); IMMATURE GRAN # 0.08 x10^3u/L (0.001-0.031); IMMATURE GRAN % 0.8 % (0.001-0.429); Mean Corpuscular Hemoglobin 34.4 pg (25.7-32.2); Mean Corpuscular Hgb Concent. 34.1 g/dL (32.3-36.5); Monocyte (Absolute #) 0.78 x10^3/uL (0.30-0.82); Monocytes % 7.8 % (5.3-12.2); Neutrophil % 83.2 % (34.0-67.9); Platelet Count 206 x10^3/uL (163-337); Red Blood Count 3.02 x10^6/uL (4.63-6.08); Red Cell Distribution Width 14.2 % (11.6-14.4)
--- NOTE | 2024-05-01 12:34 | XRAY ---
Indication: Pain. Comparison: July 04, 2018 Portable chest demonstrates stable left mid to lower lung subsegmental atelectasis/scarring. Right lung remains clear. Heart not enlarged with interval cardiac valve replacement surgery. Bony thorax intact again with osteopenia and mild degenerative changes. Interval right shoulder arthroplasty. Impression: Continued nonacute chest with chronic features.
[2024-05-01 12:39] LABS: ALBUMIN 3.4 g/dL (3.5-5.0); ALKALINE PHOSPHATASE 98 U/L (38-126); ANION GAP 11.6 MEQ/L (5-15); BLOOD UREA NITROGEN 36 mg/dL (9-20); CHLORIDE 104 mmol/L (98-107); Carbon Dioxide 26 mmol/L (22-30); Creatinine 1 2.01 mg/dL (0.66-1.25); EST GLOMERULAR FILTRATION RATE 32.7 ML/MIN; ETHYL ALCOHOL < 10 mg/dL (0-10); Glucose 257 mg/dL (74-106); NT PRO BNPII 1750 pg/mL (<300); Potassium 4.8 mmol/L (3.5-5.1); SGOT/AST 37 U/L (17-59); SGPT/ALT 32 U/L (0-50); SODIUM 137 mmol/L (135-145); Total Protein 6.1 g/dL (6.3-8.2)
[2024-05-01 12:52] LABS: INFLUENZA A NEGATIVE (NEGATIVE); INFLUENZA B NEGATIVE (NEGATIVE); RESPIRATORY SYNCTIAL VIRUS NEGATIVE (NEGATIVE); SARS-CoV-2 Xpert Express NEGATIVE (NEGATIVE)
--- NOTE | 2024-05-01 12:59 | ERPHSYRPT ---
- History of Present Illness Time Seen by Provider: 05/01/24 11:45 Source: patient Exam Limitations: no limitations Patient Subjective Stated Complaint: pt state that he feels lightheaded and thinks his blood sugar is low Triage Nursing Assessment: pt came into the er via wheelchair; pt transferred to cot per self; blood sugar on arrival was 233; pt is axo x4; skin pale, warm, dry; hypotensive; bradycardia; no respiratory distress present Physician History: 83-year-old male history of diabetes CABG cardiac stent presents to our ED with his for evaluation of dizziness and nausea. Patient states he was with his as she was scheduled for procedure. While in the waiting room at our hospital patient developed the onset of symptoms. However upon my evaluation patient's symptoms had resolved. On physical exam patient appeared pale. Patient declined pain. No chest pain or shortness of breath. No nausea vomiting or diaphoresis. Patient states he has been experiencing a ongoing cough. Patient attributes that to a viral infection. No vomiting or diarrhea. No rash. No fever. Patient states he otherwise feels well. He voices no other complaints or concerns at this time. Portions of this note were created with voice recognition technology. There may be grammatical, spelling, punctuation or sound alike errors Timing/Duration: today Severity: moderate Modifying Factors: Improves With: nothing Associated Symptoms: nausea Allergies/Adverse Reactions: morphine Adverse Reaction (Intermediate, Verified 05/01/24 11:30) Itching Home Medications: Amlodipine Besylate 5 mg [Norvasc 5 mg] 10 mg PO DAILY 10/07/20 [History] Isosorbide Mononitrate 30 mg [Imdur 30 MG] 120 mg PO DAILY 10/07/20 [History] Losartan Potassium 50 mg [Cozaar 50 MG] 100 mg PO DAILY 10/07/20 [History] Nitroglycerin 0.4 mg Tablet [Nitrostat 0.4 MG Tablet] 0.4 mg SL UD 10/07/20 [History] Atorvastatin Calcium 40 mg PO DAILY 11/18/23 [History] Carvedilol 12.5 mg [Coreg 12.5 mg] 25 mg PO BID 11/18/23 [History] Clopidogrel Bisulfate [Plavix] 75 mg PO DAILY 11/18/23 [History] Furosemide 20 mg [Lasix 20 mg] 20 mg PO DAILY 11/18/23 [History] Glipizide 10 mg [Glucotrol 10 MG] 10 mg PO BID 11/18/23 [History] Omeprazole 20 mg PO DAILY 11/18/23 [History] Pentoxifylline 400 mg PO DAILY 11/18/23 [History] Ranolazine 500 MG [Ranexa 500 MG] 1,000 mg PO BID 11/18/23 [History] Metformin HCl 500 mg [Glucophage 500 MG] 500 mg PO BIDWM 04/17/24 [History] Hx Tetanus, Diphtheria Vaccination/Date Given: Yes Hx Influenza Vaccination/Date Given: Yes Hx Pneumococcal Vaccination/Date Given: Yes Immunizations Up to Date: No Travel Risk - International Travel Have you traveled outside of the country in past 3 weeks: No - Emerging Infectious Disease Are you exhibiting symptoms associated with any current EIDs: Yes Symptoms: Cough: New Onset, Fever - Review of Systems Constitutional: No Symptoms, No Fever, No Chills Eyes: No Symptoms Ears, Nose, & Throat: No Symptoms Respiratory: No Symptoms, No Cough, No Dyspnea Cardiac: No Symptoms, No Chest Pain, No Edema, No Syncope Abdominal/Gastrointestinal: No Symptoms, No Abdominal Pain, No Nausea, No Vomiting, No Diarrhea Genitourinary Symptoms: No Symptoms, No Dysuria Musculoskeletal: No Symptoms, No Back Pain, No Neck Pain Skin: No Symptoms, No Rash Neurological: No Symptoms, No Dizziness, No Focal Weakness, No Sensory Changes Psychological: No Symptoms Endocrine: No Symptoms Hematologic/Lymphatic: No Symptoms Immunological/Allergic: No Symptoms All Other Systems: Reviewed and Negative - Past Medical History Pertinent Past Medical History: Yes Neurological History: Peripheral Neuropathy ENT History: No Pertinent History Cardiac History: Angina, Hypertension, Myocardial Infarction ([place]) Respiratory History: CHF, COPD, Other Endocrine Medical History: Diabetes Type II Musculoskeletal History: No Pertinent History, Osteoarthritis GI Medical History: No Pertinent History History: Other Psycho-Social History: No Pertinent History Male Reproductive Disorders: Prostate Cancer Other Medical History: 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 R TSA, PAST CARDIAC REHAB.HX KIDNEY CANCER. 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 mesh to right flank area. - Social History Smoking Status: Never smoker Exposure to second hand smoke: No Drug Use: none Patient Lives Alone: No - Social Determinants of Health Will the patient participate in the screening: Yes Do you worry about a steady place to live?: No Do you have any problems with any of the following?: No known problems In the past 12 months,have you had to go without utilities?: No Transportation Issues: No Has anyone in your support network made you feel unsafe?: No Have you or anyone in your house had to go without enough: No - Nursing Vital Signs Nursing Vital Signs: Initial Vital Signs Pulse Rate 50 L 05/01/24 11:30 Blood Pressure 86/42 05/01/24 11:30 O2 Sat by Pulse Oximetry 93 L 05/01/24 11:30 Pain Scale Pain Intensity 0 - Physical Exam General Appearance: no apparent distress, alert, other (pale) Eye Exam: PERRL/EOMI, eyes nml inspection Ears, Nose, Throat Exam: normal ENT inspection, TMs normal, pharynx normal, mois t mucous membranes Neck Exam: normal inspection, non-tender, supple, full range of motion Respiratory Exam: normal breath sounds, lungs clear, airway intact, No respiratory distress Cardiovascular Exam: regular rate/rhythm, normal heart sounds, normal peripheral pulses Gastrointestinal/Abdomen Exam: soft, normal bowel sounds, No tenderness, No mass Back Exam: normal inspection, normal range of motion, No CVA tenderness, No vertebral tenderness Extremity Exam: normal inspection, normal range of motion, pelvis stable, pedal edema Neurologic Exam: alert, oriented x 3, cooperative, normal mood/affect, sensation nml, No motor deficits Skin Exam: normal color, warm, dry, No rash Lymphatic Exam: No adenopathy SpO2 Interpretation: normal SpO2: 93 O2 Delivery: Room Air - Course Nursing assessment & vital signs reviewed: Yes EKG Interpreted by Me: RATE (49), Sinus [place], NORMAL AXIS, NORMAL INTERVALS, Right Bundle Branch Block - Radiology Exams Chest X-ray Interpretation: Teleradiologist Report (Nonacute chest with chronic features) - CT Exams Head CT Interpretation: Tele-radiologist Report (Pansinusitis. No acute intracranial pathology) Ordered Tests: Active Orders 24 hr Category Date Time Status Cork Grinder STAT Care 05/01/24 11:58 Active EKG-ER Only STAT Care 05/01/24 11:57 Active IV Insertion STAT Care 05/01/24 11:57 Active Pulse Oximetry (ED) STAT Care 05/01/24 11:57 Active CHEST 1 VIEW (PORTABLE) Stat Exams 05/01/24 11:58 Completed HEAD WITHOUT CONTRAST [CT] Stat Exams 05/01/24 13:03 Completed CBC W DIFF Stat Lab 05/01/24 11:45 Completed CMP Stat Lab 05/01/24 11:45 Completed CULTURE,URINE Stat Lab 05/01/24 15:18 Received ETHYL ALCOHOL Stat Lab 05/01/24 11:45 Completed Lactic Acid Stat Lab 05/01/24 12:25 Completed Lactic Acid Stat Lab 05/01/24 14:31 Completed MAGNESIUM Stat Lab 05/01/24 11:45 Completed NT PRO BNPII Stat Lab 05/01/24 11:45 Completed POCT GLUCOSE Stat Lab 05/01/24 11:26 Completed TROPONIN Q4H Lab 05/01/24 11:45 Completed TROPONIN Q4H Lab 05/01/24 16:05 Completed TROPONIN Q4H Lab 05/01/24 20:00 Ordered UA W/RFX UR CULTURE Stat Lab 05/01/24 15:18 Completed Urine Triage Profile Stat Lab 05/01/24 15:18 Completed Transfer Order Routine Transfer 05/01/24 Ordered Medication Summary Generic Name Dose Route Start Last Admin Trade Name Freq PRN Reason Stop Dose Admin Sodium Chloride 1,000 mls @ 100 mls/hr 05/01/24 12:00 05/01/24 12:08 Sodium Chloride 0.9% 1000 Ml IV 05/31/24 11:59 100 mls/hr .Q10H RICKIE Administration Discontinued Medications Generic Name Dose Route Start Last Admin Trade Name Freq PRN Reason Stop Dose Admin Ceftriaxone Sodium 1 gm in 100 mls @ 200 mls/hr 05/01/24 17:02 05/01/24 17:37 Rocephin 1 Gm / 100 Ml Nacl IV 05/01/24 17:31 200 mls/hr STAT ONE 200 mls/hr Administration Ceftriaxone Sodium Confirm 05/01/24 17:35 Rocephin 1 Gm / 100 Ml Nacl Administered 05/01/24 17:36 Dose 1 gm in 100 mls @ ud IV .STK-MED ONE Lab/Rad Data: Laboratory Result Diagrams 05/01/24 11:45 05/01/24 11:45 Laboratory Results 05/01/24 05/01/24 05/01/24 Range/Units 16:05 15:18 15:18 WBC (4.23-9.07) x10^3/uL RBC (4.63-6.08) x10^6/uL Hgb (13.7-17.5) g/dL Hct (40.1-51.0) % MCV (79.0-92.2) fL MCH (25.7-32.2) pg MCHC (32.3-36.5) g/dL RDW (11.6-14.4) % Plt Count (163-337) x10^3/uL MPV (9.4-12.4) fL Gran % (34.0-67.9) % Immature Gran % (Auto) (0.001-0.429) % Nucleat RBC Rel Count (0.00-0.2) % Eos # (Auto) (0.04-0.54) x10^3/uL Immature Gran # (Auto) (0.001-0.031) x10^3u/L Absolute Lymphs (auto) (1.32-3.57) x10^3/uL Absolute Monos (auto) (0.30-0.82) x10^3/uL Absolute Nucleated RBC (0.00-0.012) x10^3u/L Lymphocytes % (21.8-53.1) % Monocytes % (5.3-12.2) % Eosinophils % (0.8-7.0) % Basophils % (0.2-1.2) % Absolute Granulocytes (1.78-5.38) x10^3/uL Basophils # (0.01-0.08) x10^3/uL Sodium (135-145) mmol/L Potassium (3.5-5.1) mmol/L Chloride (98-107) mmol/L Carbon Dioxide (22-30) mmol/L Anion Gap (5-15) MEQ/L BUN (9-20) mg/dL Creatinine (0.66-1.25) mg/dL Estimated GFR ML/MIN Glucose (74-106) mg/dL POC Glucometer (74 to 106) mg/dL Lactic Acid (0.4-2.0) Calcium (8.4-10.2) mg/dL Magnesium (1.6-2.3) mg/dL Total Bilirubin (0.2-1.3) mg/dL AST (17-59) U/L ALT (0-50) U/L Alkaline Phosphatase (38-126) U/L Troponin I 0.033 (0.000-0.033) ng/mL NT-Pro-B Natriuret Pep (<300) pg/mL Serum Total Protein (6.3-8.2) g/dL Albumin (3.5-5.0) g/dL Urine Color Dark Yellow (Yellow) Urine Appearance Cloudy A (Clear) Urine pH 5.0 (4.6-8.0) Ur Specific [place] 1.025 (1.005-1.030) Urine Protein 100 A (Negative) Urine Glucose (UA) Negative (Negative) mg/dL Urine Ketones Trace A (Negative) Urine Blood Negative (Negative) Urine Nitrite Positive A (Negative) Urine Bilirubin Small A (Negative) Urine Urobilinogen 1.0 A (0.2) mg/dL Ur Leukocyte Esterase Small A (Negative) U Hyaline Cast (Auto) 3-5 A (0-2) /LPF Urine Microscopic RBC 0-2 (0-5) /HPF Urine Microscopic WBC 3-5 (0-5) /HPF Ur Epithelial Cells Rare (None Seen) /HPF Urine Bacteria None Seen (None Seen) /HPF Urine Culture Reflexed YES (NO) Urine Opiates Level NEGATIVE (NEGATIVE) Ur Methadone NEGATIVE (NEGATIVE) Urine Barbiturates NEGATIVE (NEGATIVE) Ur Phencyclidine (PCP) NEGATIVE (NEGATIVE) Urine Amphetamine NEGATIVE (NEGATIVE) U Benzodiazepine Level NEGATIVE (NEGATIVE) Urine Cocaine NEGATIVE (NEGATIVE) Urine Marijuana (THC) NEGATIVE (NEGATIVE) Ethyl Alcohol (0-10) mg/dL Influenza Type A Ag (NEGATIVE) Influenza Type B Ag (NEGATIVE) RSV (PCR) (NEGATIVE) SARS-CoV-2 (PCR) (NEGATIVE) 05/01/24 05/01/24 05/01/24 Range/Units 14:31 12:25 12:10 WBC (4.23-9.07) x10^3/uL RBC (4.63-6.08) x10^6/uL Hgb (13.7-17.5) g/dL Hct (40.1-51.0) % MCV (79.0-92.2) fL MCH (25.7-32.2) pg MCHC (32.3-36.5) g/dL RDW (11.6-14.4) % Plt Count (163-337) x10^3/uL MPV (9.4-12.4) fL Gran % (34.0-67.9) % Immature Gran % (Auto) (0.001-0.429) % Nucleat RBC Rel Count (0.00-0.2) % Eos # (Auto) (0.04-0.54) x10^3/uL Immature Gran # (Auto) (0.001-0.031) x10^3u/L Absolute Lymphs (auto) (1.32-3.57) x10^3/uL Absolute Monos (auto) (0.30-0.82) x10^3/uL Absolute Nucleated RBC (0.00-0.012) x10^3u/L Lymphocytes % (21.8-53.1) % Monocytes % (5.3-12.2) % Eosinophils % (0.8-7.0) % Basophils % (0.2-1.2) % Absolute Granulocytes (1.78-5.38) x10^3/uL Basophils # (0.01-0.08) x10^3/uL Sodium (135-145) mmol/L Potassium (3.5-5.1) mmol/L Chloride (98-107) mmol/L Carbon Dioxide (22-30) mmol/L Anion Gap (5-15) MEQ/L BUN (9-20) mg/dL Creatinine (0.66-1.25) mg/dL Estimated GFR ML/MIN Glucose (74-106) mg/dL POC Glucometer (74 to 106) mg/dL Lactic Acid 1.5 2.2 H (0.4-2.0) Calcium (8.4-10.2) mg/dL Magnesium (1.6-2.3) mg/dL Total Bilirubin (0.2-1.3) mg/dL AST (17-59) U/L ALT (0-50) U/L Alkaline Phosphatase (38-126) U/L Troponin I (0.000-0.033) ng/mL NT-Pro-B Natriuret Pep (<300) pg/mL Serum Total Protein (6.3-8.2) g/dL Albumin (3.5-5.0) g/dL Urine Color (Yellow) Urine Appearance (Clear) Urine pH (4.6-8.0) Ur Specific [place] (1.005-1.030) Urine Protein (Negative) Urine Glucose (UA) (Negative) mg/dL Urine Ketones (Negative) Urine Blood (Negative) Urine Nitrite (Negative) Urine Bilirubin (Negative) Urine Urobilinogen (0.2) mg/dL Ur Leukocyte Esterase (Negative) U Hyaline Cast (Auto) (0-2) /LPF Urine Microscopic RBC (0-5) /HPF Urine Microscopic WBC (0-5) /HPF Ur Epithelial Cells (None Seen) /HPF Urine Bacteria (None Seen) /HPF Urine Culture Reflexed (NO) Urine Opiates Level (NEGATIVE) Ur Methadone (NEGATIVE) Urine Barbiturates (NEGATIVE) Ur Phencyclidine (PCP) (NEGATIVE) Urine Amphetamine (NEGATIVE) U Benzodiazepine Level (NEGATIVE) Urine Cocaine (NEGATIVE) Urine Marijuana (THC) (NEGATIVE) Ethyl Alcohol (0-10) mg/dL Influenza Type A Ag NEGATIVE (NEGATIVE) Influenza Type B Ag NEGATIVE (NEGATIVE) RSV (PCR) NEGATIVE (NEGATIVE) SARS-CoV-2 (PCR) NEGATIVE (NEGATIVE) 05/01/24 05/01/24 05/01/24 Range/Units 11:45 11:45 11:45 WBC 10.0 H (4.23-9.07) x10^3/uL RBC 3.02 L (4.63-6.08) x10^6/uL Hgb 10.4 L (13.7-17.5) g/dL Hct 30.5 L (40.1-51.0) % MCV 101.0 H (79.0-92.2) fL MCH 34.4 H (25.7-32.2) pg MCHC 34.1 (32.3-36.5) g/dL RDW 14.2 (11.6-14.4) % Plt Count 206 (163-337) x10^3/uL MPV 11.0 (9.4-12.4) fL Gran % 83.2 H (34.0-67.9) % Immature Gran % (Auto) 0.8 H (0.001-0.429) % Nucleat RBC Rel Count 0.0 (0.00-0.2) % Eos # (Auto) 0.07 (0.04-0.54) x10^3/uL Immature Gran # (Auto) 0.08 H (0.001-0.031) x10^3u/L Absolute Lymphs (auto) 0.70 L (1.32-3.57) x10^3/uL Absolute Monos (auto) 0.78 (0.30-0.82) x10^3/uL Absolute Nucleated RBC 0.00 (0.00-0.012) x10^3u/L Lymphocytes % 7.0 L (21.8-53.1) % Monocytes % 7.8 (5.3-12.2) % Eosinophils % 0.7 L (0.8-7.0) % Basophils % 0.5 (0.2-1.2) % Absolute Granulocytes 8.32 H (1.78-5.38) x10^3/uL Basophils # 0.05 (0.01-0.08) x10^3/uL Sodium 137 (135-145) mmol/L Potassium 4.8 (3.5-5.1) mmol/L Chloride 104 (98-107) mmol/L Carbon Dioxide 26 (22-30) mmol/L Anion Gap 11.6 (5-15) MEQ/L BUN 36 H (9-20) mg/dL Creatinine 2.01 H (0.66-1.25) mg/dL Estimated GFR 32.7 ML/MIN Glucose 257 H (74-106) mg/dL POC Glucometer (74 to 106) mg/dL Lactic Acid (0.4-2.0) Calcium 9.0 (8.4-10.2) mg/dL Magnesium 2.0 (1.6-2.3) mg/dL Total Bilirubin 1.00 (0.2-1.3) mg/dL AST 37 (17-59) U/L ALT 32 (0-50) U/L Alkaline Phosphatase 98 (38-126) U/L Troponin I 0.038 H* (0.000-0.033) ng/mL NT-Pro-B Natriuret Pep 1750 (<300) pg/mL Serum Total Protein 6.1 L (6.3-8.2) g/dL Albumin 3.4 L (3.5-5.0) g/dL Urine Color (Yellow) Urine Appearance (Clear) Urine pH (4.6-8.0) Ur Specific [place] (1.005-1.030) Urine Protein (Negative) Urine Glucose (UA) (Negative) mg/dL Urine Ketones (Negative) Urine Blood (Negative) Urine Nitrite (Negative) Urine Bilirubin (Negative) Urine Urobilinogen (0.2) mg/dL Ur Leukocyte Esterase (Negative) U Hyaline Cast (Auto) (0-2) /LPF Urine Microscopic RBC (0-5) /HPF Urine Microscopic WBC (0-5) /HPF Ur Epithelial Cells (None Seen) /HPF Urine Bacteria (None Seen) /HPF Urine Culture Reflexed (NO) Urine Opiates Level (NEGATIVE) Ur Methadone (NEGATIVE) Urine Barbiturates (NEGATIVE) Ur Phencyclidine (PCP) (NEGATIVE) Urine Amphetamine (NEGATIVE) U Benzodiazepine Level (NEGATIVE) Urine Cocaine (NEGATIVE) Urine Marijuana (THC) (NEGATIVE) Ethyl Alcohol < 10 (0-10) mg/dL Influenza Type A Ag (NEGATIVE) Influenza Type B Ag (NEGATIVE) RSV (PCR) (NEGATIVE) SARS-CoV-2 (PCR) (NEGATIVE) 05/01/24 Range/Units 11:26 WBC (4.23-9.07) x10^3/uL RBC (4.63-6.08) x10^6/uL Hgb (13.7-17.5) g/dL Hct (40.1-51.0) % MCV (79.0-92.2) fL MCH (25.7-32.2) pg MCHC (32.3-36.5) g/dL RDW (11.6-14.4) % Plt Count (163-337) x10^3/uL MPV (9.4-12.4) fL Gran % (34.0-67.9) % Immature Gran % (Auto) (0.001-0.429) % Nucleat RBC Rel Count (0.00-0.2) % Eos # (Auto) (0.04-0.54) x10^3/uL Immature Gran # (Auto) (0.001-0.031) x10^3u/L Absolute Lymphs (auto) (1.32-3.57) x10^3/uL Absolute Monos (auto) (0.30-0.82) x10^3/uL Absolute Nucleated RBC (0.00-0.012) x10^3u/L Lymphocytes % (21.8-53.1) % Monocytes % (5.3-12.2) % Eosinophils % (0.8-7.0) % Basophils % (0.2-1.2) % Absolute Granulocytes (1.78-5.38) x10^3/uL Basophils # (0.01-0.08) x10^3/uL Sodium (135-145) mmol/L Potassium (3.5-5.1) mmol/L Chloride (98-107) mmol/L Carbon Dioxide (22-30) mmol/L Anion Gap (5-15) MEQ/L BUN (9-20) mg/dL Creatinine (0.66-1.25) mg/dL Estimated GFR ML/MIN Glucose (74-106) mg/dL POC Glucometer 233 H (74 to 106) mg/dL Lactic Acid (0.4-2.0) Calcium (8.4-10.2) mg/dL Magnesium (1.6-2.3) mg/dL Total Bilirubin (0.2-1.3) mg/dL AST (17-59) U/L ALT (0-50) U/L Alkaline Phosphatase (38-126) U/L Troponin I (0.000-0.033) ng/mL NT-Pro-B Natriuret Pep (<300) pg/mL Serum Total Protein (6.3-8.2) g/dL Albumin (3.5-5.0) g/dL Urine Color (Yellow) Urine Appearance (Clear) Urine pH (4.6-8.0) Ur Specific [place] (1.005-1.030) Urine Protein (Negative) Urine Glucose (UA) (Negative) mg/dL Urine Ketones (Negative) Urine Blood (Negative) Urine Nitrite (Negative) Urine Bilirubin (Negative) Urine Urobilinogen (0.2) mg/dL Ur Leukocyte Esterase (Negative) U Hyaline Cast (Auto) (0-2) /LPF Urine Microscopic RBC (0-5) /HPF Urine Microscopic WBC (0-5) /HPF Ur Epithelial Cells (None Seen) /HPF Urine Bacteria (None Seen) /HPF Urine Culture Reflexed (NO) Urine Opiates Level (NEGATIVE) Ur Methadone (NEGATIVE) Urine Barbiturates (NEGATIVE) Ur Phencyclidine (PCP) (NEGATIVE) Urine Amphetamine (NEGATIVE) U Benzodiazepine Level (NEGATIVE) Urine Cocaine (NEGATIVE) Urine Marijuana (THC) (NEGATIVE) Ethyl Alcohol (0-10) mg/dL Influenza Type A Ag (NEGATIVE) Influenza Type B Ag (NEGATIVE) RSV (PCR) (NEGATIVE) SARS-CoV-2 (PCR) (NEGATIVE) - Progress Progress: improved Progress Note: 83-year-old male with history of diabetes, chronic renal insufficiency coronary artery disease, CABG cardiac stent presents to our ED for evaluation of dizziness and nausea. On physical exam patient appeared pale. Patient was observed to be hypotensive and bradycardic. CT head negative for acute intracranial pathology. Chest x-ray negative for acute findings. Initial troponin elevated at 0.038 however patient's creatinine is 2.0. Repeat troponin was 0.033 which is considered normal. Initial lactic acid was 2.2. Repeat lactic acid was 1.5. Urinalysis reveals a urinary tract infection. Rocephin administered. Patient initially requested transfer to [facility] however they have no beds available. The decision was made to keep patient here. Case discussed with hospitalist Dr. Wilson who accepted admission at 5:30 PM. Plan of care discussed with patient. Patient agrees to admission [facility] for further evaluation and treatment. Portions of this note were created with voice recognition technology. There may be grammatical, spelling, punctuation or sound alike errors Complexity problem addressed is moderate acute complicated. No critical care time. Complex of data reviewed and analyzed is moderate. Test ordered test reviewed results analyzed and correlated clinically with history and physical exam. Risk of complication and or risk of morbidity/mortality patient management is high. Patient requires hospitalization for further evaluation and treatment. Vitals now stable. Blood pressure is significantly improved. Patient is now asymptomatic. Time spent to admit patient is approximately 20 minutes. Plan of care established for shared decision making. No social deter minants of health present impede follow-up. Portions of this note were created with voice recognition technology. There may be grammatical, spelling, punctuation or sound alike errors 05/01/24 17:46 Counseled pt/family regarding: lab results, diagnosis, rad results - Departure Departure Disposition: Home Clinical Impression: Chronic renal insufficiency, Dizziness, Nausea, Pallor, Macrocytic anemia, Br adycardia, Hypotension, Elevated troponin, UTI (urinary tract infection), Pansinusitis, ACS (acute coronary syndrome) Condition: Stable Critical Care Time: No Referrals: CRIS CORBETT [Primary Care Provider] - Follow up/PCP as directed
--- NOTE | 2024-05-01 13:52 | XRAY ---
Indication: Dizziness. Multiple contiguous axial images obtained through the head without contrast. Comparison: November 18, 2023 Normal appearing brain parenchyma, ventricles, and bony calvarium for patient's age. New moderate/significant mucoperiosteal thickening both ethmoid, both maxillary, and lesser degree both frontal sinuses with left maxillary sinus fluid leveling. Mastoid air cells are clear. Impression: New pansinusitis. Remaining CT head without contrast exam continues to be normal.
[2024-05-01 15:46] LABS: ADD URINE CULTURE? YES (NO); Appearance Cloudy (Clear); Bacteria None Seen /HPF (None Seen); Bilirubin Small (Negative); Blood Negative (Negative); Epithelial Cells Rare /HPF (None Seen); Glucose, Urine Negative (Negative); Ketones Trace (Negative); Leukocyte Esterase Small (Negative); Nitrite Positive (Negative); Protein,Urine Dip 100 (Negative); RBC 0-2 /HPF (0-5); Specific Gravity 1.025 (1.005-1.030)
[2024-05-01 16:11] LABS: Amphetamine,Urine NEGATIVE (NEGATIVE); Barbiturate,Urine NEGATIVE (NEGATIVE); Benzodiazepine,Urine NEGATIVE (NEGATIVE); Cocaine,Urine NEGATIVE (NEGATIVE); Methadone,Urine NEGATIVE (NEGATIVE); Opiate,Urine NEGATIVE (NEGATIVE); PCP,Urine NEGATIVE (NEGATIVE); THC,Urine NEGATIVE (NEGATIVE)
[2024-05-01] MEDS ORDERED: ROCEPHIN 1 GM / 100 ML NaCl 1 GM/100 ML IVPB IV ONE (17:35)
[2024-05-01] MEDS: ROCEPHIN 1 GM / 100 ML NaCl 1 GM/100 ML IVPB IV ONE (17:37)
[2024-05-01] MEDS ORDERED: Docusate Sodium 100 MG PO PRN (19:00)
[2024-05-01] MEDS ORDERED: TYLENOL 325 MG PO PRN (19:00)
[2024-05-01] MEDS ORDERED: Zofran 4 MG/2 ML VIAL IV PRN (19:00)
--- NOTE | 2024-05-01 19:11 | PCM.HP ---
History of Present Illness - Chief Complaint Chief Complaint: ACS, dizziness, hypotension Date: 05/01/24 History of Present Illness: is a 83 year old male with a history of diabetes, CAD (s/p CABG & cardiac stents and follows with Dr. Louis at [place]) who presented to the ED with his for evaluation of dizziness and nausea. Patient states he was with his as she was scheduled for procedure. While in the waiting room at our hospital patient developed the onset of symptoms. However upon my evaluation patient's symptoms had resolved. He states that he did not have any chest pain. He does state that he may not have eaten a full meal for breakfast. On physical exam in the ED the patient appeared pale and was noted to have transient bradycardia to the 40s. He denied shortness of breath. No nausea vomiting or diaphoresis. Patient reported to the ED that has been experiencing a ongoing cough, which he attributes that to a viral infection. No vomiting or diarrhea. No rash. No fever. Patient states he otherwise feels well. In the ED, the patient received IV fluids and also IV antibiotics due to a UA suggestive of a possible UTI. At the time of my evaluation, he is comfortable and without complaints. He states that his last titration (doubling from 12.5 mg po bid to 25 mg po bid) of Coreg was in November 2023. - Review of Systems Constitutional: No Symptoms Eyes: No Symptoms Ears, Nose, & Throat: No Symptoms Respiratory: No Symptoms Cardiac: No Symptoms Abdominal/Gastrointestinal: Nausea Genitourinary Symptoms: No Symptoms Musculoskeletal: No Symptoms Skin: No Symptoms Neurological: Dizziness Psychological: No Symptoms Endocrine: No Symptoms Hematologic/Lymphatic: No Symptoms Immunological/Allergic: No Symptoms All Other Systems: Reviewed and Negative Medications & Allergies Home Medications: Home Medication List Amlodipine Besylate 5 mg [Norvasc 5 mg] 10 mg PO DAILY 10/07/20 [History Confirmed 05/01/24] Isosorbide Mononitrate 30 mg [Imdur 30 MG] 120 mg PO DAILY 10/07/20 [H istory Confirmed 05/01/24] Losartan Potassium 50 mg [Cozaar 50 MG] 100 mg PO DAILY 10/07/20 [History Confirmed 05/01/24] Nitroglycerin 0.4 mg Tablet [Nitrostat 0.4 MG Tablet] 0.4 mg SL UD 10/07/20 [History Confirmed 05/01/24] Aspirin 81 mg PO DAILY #0 10/16/20 [Rx Confirmed 05/01/24] Atorvastatin Calcium 40 mg PO DAILY 11/18/23 [History Confirmed 05/01/24] Carvedilol 12.5 mg [Coreg 12.5 mg] 25 mg PO BID 11/18/23 [History Confirmed 05/01/24] Clopidogrel Bisulfate [Plavix] 75 mg PO DAILY 11/18/23 [History Confirmed 05/01/24] Furosemide 20 mg [Lasix 20 mg] 20 mg PO DAILY 11/18/23 [History Confirmed 05/01/24] Glipizide 10 mg [Glucotrol 10 MG] 10 mg PO BID 11/18/23 [History Confirmed 05/01/24] Omeprazole 20 mg PO DAILY 11/18/23 [History Confirmed 05/01/24] Pentoxifylline 400 mg PO DAILY 11/18/23 [History Confirmed 05/01/24] Ranolazine 500 MG [Ranexa 500 MG] 1,000 mg PO BID 11/18/23 [History Confirmed 05/01/24] Metformin HCl 500 mg [Glucophage 500 MG] 500 mg PO BIDWM 04/17/24 [History Confirmed 05/01/24] Allergies/Adverse Reactions: Allergies Allergy/AdvReac Type Severity Reaction Status Date / Time morphine AdvReac Intermediate Itching Verified 05/01/24 11:30 - Past Medical History Past Medical History: Yes Neurological History: Peripheral Neuropathy ENT History: No Pertinent History Cardiac History: Angina, Hypertension, Myocardial Infarction ([place]) Respiratory History: CHF, COPD, Other Endocrine Medical History: Diabetes Type II Musculoskelatal History: No Pertinent History, Osteoarthritis GI Medical History: No Pertinent History History: Other Pyscho-Social History: No Pertinent History Male Reproductive Disorders: Prostate Cancer Comment: 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 R TSA, PAST CARDIAC REHAB.HX KIDNEY CANCER. HX PROSTATE CANCER - Past Surgical History Past Surgical History: Yes Neuro Surgical History: No Pertinent History Cardiac History: CABG, Cardiac Catheterization Respiratory Surgery: No Pertinent History GI Surgical History: Hernia Repair Genitourinary Surgical Hx: No Pertinent History, Kidney Surgery Musculskeletal Surgical Hx: No Pertinent History Male Surgical History: Prostate Surgery Other Surgical History: cancer removed from kidney partial nephrectomy and prostatectomy. mesh to right flank area. - Social History Smoking Status: Never smoker Exposure to second hand smoke: No Alcohol: None Drug Use: none - Social Determinants of Health Will the patient participate in the screening: Yes Do you worry about a steady place to live?: No Do you have any problems with any of the following?: No known problems In the past 12 months,have you had to go without utilities?: No Have you or anyone in your house had to go without enough: No Transportation Issues: No Has anyone in your support network made you feel unsafe?: No Does the patient want assistance with any of the above?: No - Physical Exam Vital Signs: Vital Signs - 24 hr Temp Pulse Resp BP BP Pulse Ox 05/01/24 18:27 97.5 F 62 14 117/58 92 L 05/01/24 18:06 63 14 94/41 93 L 05/01/24 18:05 62 14 93/39 93 L 05/01/24 18:00 62 15 78/52 92 L 05/01/24 17:55 62 12 85/37 94 L 05/01/24 17:54 61 20 94 L 05/01/24 17:49 93 L 05/01/24 17:10 94 L 05/01/24 17:09 93 L 05/01/24 16:31 66 23 89/50 05/01/24 16:01 51 L 14 91/47 95 05/01/24 15:30 51 L 15 104/52 05/01/24 15:00 48 L 18 103/54 95 05/01/24 14:39 49 L 14 82/40 96 05/01/24 14:30 49 L 16 87/44 93 L 05/01/24 14:17 49 L 16 101/45 93 L 05/01/24 13:00 50 L 18 104/47 94 L 05/01/24 12:30 50 L 16 96/54 93 L 05/01/24 12:27 93 L 05/01/24 12:00 52 L 95/59 94 L 05/01/24 11:33 98.1 F 50 L 18 88/41 93 L 05/01/24 11:30 50 L 86/42 93 L General Appearance: no apparent distress, alert Neurologic Exam: alert, oriented x 3, cooperative, 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, normal mood/affect, nml cerebellar function Eye Exam: PERRL/EOMI, eyes nml inspection Ears, Nose, Throat Exam: normal ENT inspection Neck Exam: normal inspection, non-tender, supple, full range of motion Respiratory Exam: normal breath sounds, lungs clear Cardiovascular Exam: regular rate/rhythm, normal heart sounds, edema (symmetrical pitting edema at the bilateral ankles) Gastrointestinal/Abdomen Exam: soft, normal bowel sounds Back Exam: normal range of motion Extremity Exam: normal range of motion Skin Exam: normal color Results - Labs Lab/Micro Results: Lab Results-Last 24 Hours 05/01/24 05/01/24 05/01/24 Range/Units 11:26 11:45 11:45 WBC 10.0 H (4.23-9.07) x10^3/uL RBC 3.02 L (4.63-6.08) x10^6/uL Hgb 10.4 L (13.7-17.5) g/dL Hct 30.5 L (40.1-51.0) % MCV 101.0 H (79.0-92.2) fL MCH 34.4 H (25.7-32.2) pg MCHC 34.1 (32.3-36.5) g/dL RDW 14.2 (11.6-14.4) % Plt Count 206 (163-337) x10^3/uL MPV 11.0 (9.4-12.4) fL Gran % 83.2 H (34.0-67.9) % Immature Gran % (Auto) 0.8 H (0.001-0.429) % Nucleat RBC Rel Count 0.0 (0.00-0.2) % Eos # (Auto) 0.07 (0.04-0.54) x10^3/uL Immature Gran # (Auto) 0.08 H (0.001-0.031) x10^3u/L Absolute Lymphs (auto) 0.70 L (1.32-3.57) x10^3/uL Absolute Monos (auto) 0.78 (0.30-0.82) x10^3/uL Absolute Nucleated RBC 0.00 (0.00-0.012) x10^3u/L Lymphocytes % 7.0 L (21.8-53.1) % Monocytes % 7.8 (5.3-12.2) % Eosinophils % 0.7 L (0.8-7.0) % Basophils % 0.5 (0.2-1.2) % Absolute Granulocytes 8.32 H (1.78-5.38) x10^3/uL Basophils # 0.05 (0.01-0.08) x10^3/uL Sodium 137 (135-145) mmol/L Potassium 4.8 (3.5-5.1) mmol/L Chloride 104 (98-107) mmol/L Carbon Dioxide 26 (22-30) mmol/L Anion Gap 11.6 (5-15) MEQ/L BUN 36 H (9-20) mg/dL Creatinine 2.01 H (0.66-1.25) mg/dL Estimated GFR 32.7 ML/MIN Glucose 257 H (74-106) mg/dL POC Glucometer 233 H (74 to 106) mg/dL Lactic Acid (0.4-2.0) Calcium 9.0 (8.4-10.2) mg/dL Magnesium 2.0 (1.6-2.3) mg/dL Total Bilirubin 1.00 (0.2-1.3) mg/dL AST 37 (17-59) U/L ALT 32 (0-50) U/L Alkaline Phosphatase 98 (38-126) U/L Troponin I (0.000-0.033) ng/mL NT-Pro-B Natriuret Pep 1750 (<300) pg/mL Serum Total Protein 6.1 L (6.3-8.2) g/dL Albumin 3.4 L (3.5-5.0) g/dL Urine Color (Yellow) Urine Appearance (Clear) Urine pH (4.6-8.0) Ur Specific [place] (1.005-1.030) Urine Protein (Negative) Urine Glucose (UA) (Negative) mg/dL Urine Ketones (Negative) Urine Blood (Negative) Urine Nitrite (Negative) Urine Bilirubin (Negative) Urine Urobilinogen (0.2) mg/dL Ur Leukocyte Esterase (Negative) U Hyaline Cast (Auto) (0-2) /LPF Urine Microscopic RBC (0-5) /HPF Urine Microscopic WBC (0-5) /HPF Ur Epithelial Cells (None Seen) /HPF Urine Bacteria (None Seen) /HPF Urine Culture Reflexed (NO) Urine Opiates Level (NEGATIVE) Ur Methadone (NEGATIVE) Urine Barbiturates (NEGATIVE) Ur Phencyclidine (PCP) (NEGATIVE) Urine Amphetamine (NEGATIVE) U Benzodiazepine Level (NEGATIVE) Urine Cocaine (NEGATIVE) Urine Marijuana (THC) (NEGATIVE) Ethyl Alcohol < 10 (0-10) mg/dL Influenza Type A Ag (NEGATIVE) Influenza Type B Ag (NEGATIVE) RSV (PCR) (NEGATIVE) SARS-CoV-2 (PCR) (NEGATIVE) 05/01/24 05/01/24 05/01/24 Range/Units 11:45 12:10 12:25 WBC (4.23-9.07) x10^3/uL RBC (4.63-6.08) x10^6/uL Hgb (13.7-17.5) g/dL Hct (40.1-51.0) % MCV (79.0-92.2) fL MCH (25.7-32.2) pg MCHC (32.3-36.5) g/dL RDW (11.6-14.4) % Plt Count (163-337) x10^3/uL MPV (9.4-12.4) fL Gran % (34.0-67.9) % Immature Gran % (Auto) (0.001-0.429) % Nucleat RBC Rel Count (0.00-0.2) % Eos # (Auto) (0.04-0.54) x10^3/uL Immature Gran # (Auto) (0.001-0.031) x10^3u/L Absolute Lymphs (auto) (1.32-3.57) x10^3/uL Absolute Monos (auto) (0.30-0.82) x10^3/uL Absolute Nucleated RBC (0.00-0.012) x10^3u/L Lymphocytes % (21.8-53.1) % Monocytes % (5.3-12.2) % Eosinophils % (0.8-7.0) % Basophils % (0.2-1.2) % Absolute Granulocytes (1.78-5.38) x10^3/uL Basophils # (0.01-0.08) x10^3/uL Sodium (135-145) mmol/L Potassium (3.5-5.1) mmol/L Chloride (98-107) mmol/L Carbon Dioxide (22-30) mmol/L Anion Gap (5-15) MEQ/L BUN (9-20) mg/dL Creatinine (0.66-1.25) mg/dL Estimated GFR ML/MIN Glucose (74-106) mg/dL POC Glucometer (74 to 106) mg/dL Lactic Acid 2.2 H (0.4-2.0) Calcium (8.4-10.2) mg/dL Magnesium (1.6-2.3) mg/dL Total Bilirubin (0.2-1.3) mg/dL AST (17-59) U/L ALT (0-50) U/L Alkaline Phosphatase (38-126) U/L Troponin I 0.038 H* (0.000-0.033) ng/mL NT-Pro-B Natriuret Pep (<300) pg/mL Serum Total Protein (6.3-8.2) g/dL Albumin (3.5-5.0) g/dL Urine Color (Yellow) Urine Appearance (Clear) Urine pH (4.6-8.0) Ur Specific [place] (1.005-1.030) Urine Protein (Negative) Urine Glucose (UA) (Negative) mg/dL Urine Ketones (Negative) Urine Blood (Negative) Urine Nitrite (Negative) Urine Bilirubin (Negative) Urine Urobilinogen (0.2) mg/dL Ur Leukocyte Esterase (Negative) U Hyaline Cast (Auto) (0-2) /LPF Urine Microscopic RBC (0-5) /HPF Urine Microscopic WBC (0-5) /HPF Ur Epithelial Cells (None Seen) /HPF Urine Bacteria (None Seen) /HPF Urine Culture Reflexed (NO) Urine Opiates Level (NEGATIVE) Ur Methadone (NEGATIVE) Urine Barbiturates (NEGATIVE) Ur Phencyclidine (PCP) (NEGATIVE) Urine Amphetamine (NEGATIVE) U Benzodiazepine Level (NEGATIVE) Urine Cocaine (NEGATIVE) Urine Marijuana (THC) (NEGATIVE) Ethyl Alcohol (0-10) mg/dL Influenza Type A Ag NEGATIVE (NEGATIVE) Influenza Type B Ag NEGATIVE (NEGATIVE) RSV (PCR) NEGATIVE (NEGATIVE) SARS-CoV-2 (PCR) NEGATIVE (NEGATIVE) 05/01/24 05/01/24 05/01/24 Range/Units 14:31 15:18 15:18 WBC (4.23-9.07) x10^3/uL RBC (4.63-6.08) x10^6/uL Hgb (13.7-17.5) g/dL Hct (40.1-51.0) % MCV (79.0-92.2) fL MCH (25.7-32.2) pg MCHC (32.3-36.5) g/dL RDW (11.6-14.4) % Plt Count (163-337) x10^3/uL MPV (9.4-12.4) fL Gran % (34.0-67.9) % Immature Gran % (Auto) (0.001-0.429) % Nucleat RBC Rel Count (0.00-0.2) % Eos # (Auto) (0.04-0.54) x10^3/uL Immature Gran # (Auto) (0.001-0.031) x10^3u/L Absolute Lymphs (auto) (1.32-3.57) x10^3/uL Absolute Monos (auto) (0.30-0.82) x10^3/uL Absolute Nucleated RBC (0.00-0.012) x10^3u/L Lymphocytes % (21.8-53.1) % Monocytes % (5.3-12.2) % Eosinophils % (0.8-7.0) % Basophils % (0.2-1.2) % Absolute Granulocytes (1.78-5.38) x10^3/uL Basophils # (0.01-0.08) x10^3/uL Sodium (135-145) mmol/L Potassium (3.5-5.1) mmol/L Chloride (98-107) mmol/L Carbon Dioxide (22-30) mmol/L Anion Gap (5-15) MEQ/L BUN (9-20) mg/dL Creatinine (0.66-1.25) mg/dL Estimated GFR ML/MIN Glucose (74-106) mg/dL POC Glucometer (74 to 106) mg/dL Lactic Acid 1.5 (0.4-2.0) Calcium (8.4-10.2) mg/dL Magnesium (1.6-2.3) mg/dL Total Bilirubin (0.2-1.3) mg/dL AST (17-59) U/L ALT (0-50) U/L Alkaline Phosphatase (38-126) U/L Troponin I (0.000-0.033) ng/mL NT-Pro-B Natriuret Pep (<300) pg/mL Serum Total Protein (6.3-8.2) g/dL Albumin (3.5-5.0) g/dL Urine Color Dark Yellow (Yellow) Urine Appearance Cloudy A (Clear) Urine pH 5.0 (4.6-8.0) Ur Specific [place] 1.025 (1.005-1.030) Urine Protein 100 A (Negative) Urine Glucose (UA) Negative (Negative) mg/dL Urine Ketones Trace A (Negative) Urine Blood Negative (Negative) Urine Nitrite Positive A (Negative) Urine Bilirubin Small A (Negative) Urine Urobilinogen 1.0 A (0.2) mg/dL Ur Leukocyte Esterase Small A (Negative) U Hyaline Cast (Auto) 3-5 A (0-2) /LPF Urine Microscopic RBC 0-2 (0-5) /HPF Urine Microscopic WBC 3-5 (0-5) /HPF Ur Epithelial Cells Rare (None Seen) /HPF Urine Bacteria None Seen (None Seen) /HPF Urine Culture Reflexed YES (NO) Urine Opiates Level NEGATIVE (NEGATIVE) Ur Methadone NEGATIVE (NEGATIVE) Urine Barbiturates NEGATIVE (NEGATIVE) Ur Phencyclidine (PCP) NEGATIVE (NEGATIVE) Urine Amphetamine NEGATIVE (NEGATIVE) U Benzodiazepine Level NEGATIVE (NEGATIVE) Urine Cocaine NEGATIVE (NEGATIVE) Urine Marijuana (THC) NEGATIVE (NEGATIVE) Ethyl Alcohol (0-10) mg/dL Influenza Type A Ag (NEGATIVE) Influenza Type B Ag (NEGATIVE) RSV (PCR) (NEGATIVE) SARS-CoV-2 (PCR) (NEGATIVE) 05/01/24 Range/Units 16:05 WBC (4.23-9.07) x10^3/uL RBC (4.63-6.08) x10^6/uL Hgb (13.7-17.5) g/dL Hct (40.1-51.0) % MCV (79.0-92.2) fL MCH (25.7-32.2) pg MCHC (32.3-36.5) g/dL RDW (11.6-14.4) % Plt Count (163-337) x10^3/uL MPV (9.4-12.4) fL Gran % (34.0-67.9) % Immature Gran % (Auto) (0.001-0.429) % Nucleat RBC Rel Count (0.00-0.2) % Eos # (Auto) (0.04-0.54) x10^3/uL Immature Gran # (Auto) (0.001-0.031) x10^3u/L Absolute Lymphs (auto) (1.32-3.57) x10^3/uL Absolute Monos (auto) (0.30-0.82) x10^3/uL Absolute Nucleated RBC (0.00-0.012) x10^3u/L Lymphocytes % (21.8-53.1) % Monocytes % (5.3-12.2) % Eosinophils % (0.8-7.0) % Basophils % (0.2-1.2) % Absolute Granulocytes (1.78-5.38) x10^3/uL Basophils # (0.01-0.08) x10^3/uL Sodium (135-145) mmol/L Potassium (3.5-5.1) mmol/L Chloride (98-107) mmol/L Carbon Dioxide (22-30) mmol/L Anion Gap (5-15) MEQ/L BUN (9-20) mg/dL Creatinine (0.66-1.25) mg/dL Estimated GFR ML/MIN Glucose (74-106) mg/dL POC Glucometer (74 to 106) mg/dL Lactic Acid (0.4-2.0) Calcium (8.4-10.2) mg/dL Magnesium (1.6-2.3) mg/dL Total Bilirubin (0.2-1.3) mg/dL AST (17-59) U/L ALT (0-50) U/L Alkaline Phosphatase (38-126) U/L Troponin I 0.033 (0.000-0.033) ng/mL NT-Pro-B Natriuret Pep (<300) pg/mL Serum Total Protein (6.3-8.2) g/dL Albumin (3.5-5.0) g/dL Urine Color (Yellow) Urine Appearance (Clear) Urine pH (4.6-8.0) Ur Specific [place] (1.005-1.030) Urine Protein (Negative) Urine Glucose (UA) (Negative) mg/dL Urine Ketones (Negative) Urine Blood (Negative) Urine Nitrite (Negative) Urine Bilirubin (Negative) Urine Urobilinogen (0.2) mg/dL Ur Leukocyte Esterase (Negative) U Hyaline Cast (Auto) (0-2) /LPF Urine Microscopic RBC (0-5) /HPF Urine Microscopic WBC (0-5) /HPF Ur Epithelial Cells (None Seen) /HPF Urine Bacteria (None Seen) /HPF Urine Culture Reflexed (NO) Urine Opiates Level (NEGATIVE) Ur Methadone (NEGATIVE) Urine Barbiturates (NEGATIVE) Ur Phencyclidine (PCP) (NEGATIVE) Urine Amphetamine (NEGATIVE) U Benzodiazepine Level (NEGATIVE) Urine Cocaine (NEGATIVE) Urine Marijuana (THC) (NEGATIVE) Ethyl Alcohol (0-10) mg/dL Influenza Type A Ag (NEGATIVE) Influenza Type B Ag (NEGATIVE) RSV (PCR) (NEGATIVE) SARS-CoV-2 (PCR) (NEGATIVE) - Radiology Impressions Radiology Exams & Impressions: Radiology Procedures Category Date Time Status CHEST 1 VIEW (PORTABLE) Stat Exams 05/01/24 11:58 Completed HEAD WITHOUT CONTRAST [CT] Stat Exams 05/01/24 13:03 Completed - Other Procedures and Tests Respiratory Therapy 05/01/24 19:00 EKG REPEAT IN AM Assessment/Plan (1) Dizziness Current Visit: Yes Status: Acute Assessment & Plan: Unclear etiology but likely multifactorial: poor po intake, possible UTI, possible dehydration, iatrogenic bradycardia. HR in the 60s now. Received IV fluids and antibiotics. Denies chest pain. Trend troponins on telemetry. Repeat AM EKG. Orthostatics in AM. Code(s): R42 - DIZZINESS AND GIDDINESS (2) Bradycardia Current Visit: Yes Status: Acute Assessment & Plan: Monitor HR trend on tele. Usually has a HR in the 50s on Coreg per the patient. Could decrease the Coreg dose if the patient's rate drops below 50. Check TSH. Code(s): R00.1 - BRADYCARDIA, UNSPECIFIED (3) Macrocytic anemia Current Visit: Yes Status: Acute Assessment & Plan: Check B12, folate, TSH. Code(s): D53.9 - NUTRITIONAL ANEMIA, UNSPECIFIED (4) UTI (urinary tract infection) Current Visit: Yes Status: Acute Assessment & Plan: Follow culture. IV Rocephin. No prior history of UTIs. Code(s): N39.0 - URINARY TRACT INFECTION, SITE NOT SPECIFIED (5) Chronic renal insufficiency Current Visit: Yes Status: Acute Assessment & Plan: Monitor renal function and electrolytes. Code(s): N18.9 - CHRONIC KIDNEY DISEASE, UNSPECIFIED Telemedicine Encounter - Telemedicine Encounter Telemedicine Encounter: The entirety of this encounter was performed via Telemedicine"
[2024-05-01 20:45] LABS: Folate (Folic Acid) > 16.6 ng/mL (2.76 - >20); TSH, 3RD Generation 1.188 mIU/L (0.470-4.680); Vitamin B12 403 pg/mL (239-931)
[2024-05-01] MEDS ORDERED: Glucotrol 5 MG ONE (22:19)
[2024-05-01] MEDS: Glucotrol 5 MG PO SCH (22:26)
[2024-05-01] MEDS: Ranexa 500 MG PO SCH (22:26)
[2024-05-01] MEDS: BENADRYL 25 MG CAPSULE PO SCH (22:26)
[2024-05-01] MEDS: Neurontin PO SCH (22:26)
[2024-05-01] MEDS: Pepcid 20 MG PO SCH (22:26)
[2024-05-01] MEDS: COREG 12.5 MG PO SCH (22:26)
[2024-05-01] MEDS: HUMALOG SQ PRN (22:27)
[2024-05-02 04:52] LABS: Absolute Neutrophil Ct (ANC) 5.89 x10^3/uL (1.78-5.38); BASOPHIL % 0.5 % (0.2-1.2); Basophil (Absolute #) 0.04 x10^3/uL (0.01-0.08); Eosinophil % 2.7 % (0.8-7.0); Eosinophil (Absolute #) 0.21 x10^3/uL (0.04-0.54); Hematocrit 29.4 % (40.1-51.0); Hemoglobin 9.6 g/dL (13.7-17.5); IMMATURE GRAN % 1.3 % (0.001-0.429); Lymphocyte (Absolute #) 0.89 x10^3/uL (1.32-3.57); Lymphocytes % 11.4 % (21.8-53.1); Mean Cell Volume 102.8 fL (79.0-92.2); Mean Corpuscular Hemoglobin 33.6 pg (25.7-32.2); Mean Corpuscular Hgb Concent. 32.7 g/dL (32.3-36.5); Mean Platelet Volume 9.9 fL (9.4-12.4); Monocyte (Absolute #) 0.66 x10^3/uL (0.30-0.82); Monocytes % 8.5 % (5.3-12.2); Neutrophil % 75.6 % (34.0-67.9); Platelet Count 193 x10^3/uL (163-337); Red Blood Count 2.86 x10^6/uL (4.63-6.08); Red Cell Distribution Width 13.9 % (11.6-14.4); White Blood Count 7.8 x10^3/uL (4.23-9.07)
[2024-05-02 05:25] LABS: ANION GAP 11.1 MEQ/L (5-15); Calcium 8.6 mg/dL (8.4-10.2); Creatinine 1 1.97 mg/dL (0.66-1.25); EST GLOMERULAR FILTRATION RATE 33.5 ML/MIN; Potassium 4.5 mmol/L (3.5-5.1)
[2024-05-02] MEDS: ROCEPHIN 1 GM / 100 ML NaCl 1 GM/100 ML IVPB IV SCH (09:00)
[2024-05-02] MEDS: Acidophilus TABLET PO SCH (09:04)
[2024-05-02] MEDS: Glucotrol 5 MG PO SCH (09:04)
[2024-05-02] MEDS: ENOXAPARIN SODIUM SQ SCH (09:05)
[2024-05-02] MEDS: Imdur 30 MG PO SCH (11:11)
[2024-05-02] MEDS ORDERED: MEDICATION INTERVENTION MC SCH (11:45)
[2024-05-02] MEDS: Protonix 40MG Tablet PO SCH (11:46)
[2024-05-02] MEDS: PLAVIX Tablet PO SCH (11:46)
[2024-05-02] MEDS: Cozaar 50 MG PO SCH (11:46)
[2024-05-02] MEDS: ECOTRIN 81 MG PO SCH (11:46)
[2024-05-02 12:01] VITALS: RESP 18
--- NOTE | 2024-05-02 12:07 | PCM.NOTE ---
Date and Time: 05/02/24 1200 Subjective Assessment: 05/02/24 is a 83 year old male with a history of diabetes, CAD (s/p CABG & cardiac stents and follows with Dr. Louis at [place]). He presented to the ED on 05/01/24 with his for evaluation of dizziness and nausea. Patient states he was with his as she was scheduled for procedure. While in the waiting room at our hospital patient developed the onset of symptoms. However upon IP admission evaluation patient's symptoms had resolved. He states that he did not have any chest pain. He does state that he may not have eaten a full meal for breakfast. On physical exam in the ED the patient appeared pale and was noted to have transient bradycardia to the 40s. He denied shortness of breath. No nausea vomiting or diaphoresis. Patient reported to the ED that has been experiencing a ongoing cough, which he attributes that to a viral infection. No vomiting or diarrhea. No rash. No fever. Patient states he otherwise feels well. In the ED, the patient received IV fluids and also IV antibiotics due to a UA suggestive of a possible UTI. He states that his last titration (doubling from 12.5 mg po bid to 25 mg po bid) of Coreg was in November 2023. Early this morning pt states he was feeling fine then developed CP around 11:30. He states he normally takes a nitro and feels better, he also did not have his Imdur this morning and feels it may also be related to that. EKG reviwed and cardiology consulted. Trop x3 ordered. Cp went away after EKG competed. HR, BP and dizziness resolved today. Pt does have a heart murumur and reposrt he is unsure if he has had this in the past. HARPREET improving. Will keep pt another day and trend trops. He denies SOB, abd. pain, N/V/D. - Review of Systems Constitutional: No Fever, No Chills Eyes: No Symptoms Ears, Nose, & Throat: No Symptoms Respiratory: No Cough, No Short Of Breath Cardiac: Chest Pain, No Edema, No Syncope Abdominal/Gastrointestinal: No Abdominal Pain, No Nausea, No Vomiting, No Diarrhea Genitourinary Symptoms: No Dysuria Musculoskeletal: No Back Pain, No Neck Pain Skin: No Rash Neurological: No Dizziness, No Focal Weakness, No Sensory Changes Psychological: No Symptoms Endocrine: No Symptoms Hematologic/Lymphatic: No Symptoms Immunological/Allergic: No Symptoms Objective Exam General Appearance: no apparent distress, alert, obese Neurologic Exam: alert, oriented x 3, cooperative, normal mood/affect, nml cerebellar function, sensation nml, No motor deficits Skin Exam: normal color, warm, dry Eye Exam: PERRL, EOMI, eyes nml inspection Ears, Nose, Throat Exam: normal ENT inspection, pharynx normal, moist mucous membranes Neck Exam: normal inspection, non-tender, supple, full range of motion Respiratory Exam: normal breath sounds, lungs clear, No respiratory distress Cardiovascular Exam: regular rate/rhythm, normal heart sounds Gastrointestinal/Abdomen Exam: soft, No tenderness, No mass Extremity Exam: normal inspection, normal range of motion Back Exam: normal inspection, normal range of motion, No CVA tenderness, No vertebral tenderness Male Genitalia Exam: deferred Rectal Exam: deferred Objective Data Vital Signs: Vital Signs - 24 hr Temp Pulse Resp BP BP Pulse Ox 05/02/24 08:03 65 128/60 05/02/24 08:02 57 L 116/58 05/02/24 08:01 60 119/59 05/02/24 08:00 98.2 F 20 05/02/24 07:39 91 L 05/02/24 03:46 98.0 F 66 20 128/60 95 05/01/24 23:28 97.7 F 67 18 96/50 95 05/01/24 21:00 93 L 05/01/24 18:27 97.5 F 62 14 117/58 92 L 05/01/24 18:22 92 L 05/01/24 18:06 63 14 94/41 93 L 05/01/24 18:05 62 14 93/39 93 L 05/01/24 18:00 62 15 78/52 92 L 05/01/24 17:55 62 12 85/37 94 L 05/01/24 17:54 61 20 94 L 05/01/24 17:49 93 L 05/01/24 17:10 94 L 05/01/24 17:09 93 L 05/01/24 16:31 66 23 89/50 05/01/24 16:01 51 L 14 91/47 95 05/01/24 15:30 51 L 15 104/52 05/01/24 15:00 48 L 18 103/54 95 05/01/24 14:39 49 L 14 82/40 96 05/01/24 14:30 49 L 16 87/44 93 L 05/01/24 14:17 49 L 16 101/45 93 L 05/01/24 13:00 50 L 18 104/47 94 L 05/01/24 12:30 50 L 16 96/54 93 L 05/01/24 12:27 93 L Pain Assessment - Last Documented Pain Intensity 0 Intake and Output: Intake & Output 04/30/24 05/01/24 05/02/24 05/03/24 11:59 11:59 11:59 11:59 Intake Total 2080 Output Total 200 Balance 1880 Weight 108.4 kg 107.5 kg Lab Results: Lab Results-Last 24 Hours 05/01/24 05/01/24 05/01/24 Range/Units 11:45 11:45 11:45 WBC 10.0 H (4.23-9.07) x10^3/uL RBC 3.02 L (4.63-6.08) x10^6/uL Hgb 10.4 L (13.7-17.5) g/dL Hct 30.5 L (40.1-51.0) % MCV 101.0 H (79.0-92.2) fL MCH 34.4 H (25.7-32.2) pg MCHC 34.1 (32.3-36.5) g/dL RDW 14.2 (11.6-14.4) % Plt Count 206 (163-337) x10^3/uL MPV 11.0 (9.4-12.4) fL Gran % 83.2 H (34.0-67.9) % Immature Gran % (Auto) 0.8 H (0.001-0.429) % Nucleat RBC Rel Count 0.0 (0.00-0.2) % Eos # (Auto) 0.07 (0.04-0.54) x10^3/uL Immature Gran # (Auto) 0.08 H (0.001-0.031) x10^3u/L Absolute Lymphs (auto) 0.70 L (1.32-3.57) x10^3/uL Absolute Monos (auto) 0.78 (0.30-0.82) x10^3/uL Absolute Nucleated RBC 0.00 (0.00-0.012) x10^3u/L Lymphocytes % 7.0 L (21.8-53.1) % Monocytes % 7.8 (5.3-12.2) % Eosinophils % 0.7 L (0.8-7.0) % Basophils % 0.5 (0.2-1.2) % Absolute Granulocytes 8.32 H (1.78-5.38) x10^3/uL Basophils # 0.05 (0.01-0.08) x10^3/uL Sodium 137 (135-145) mmol/L Potassium 4.8 (3.5-5.1) mmol/L Chloride 104 (98-107) mmol/L Carbon Dioxide 26 (22-30) mmol/L Anion Gap 11.6 (5-15) MEQ/L BUN 36 H (9-20) mg/dL Creatinine 2.01 H (0.66-1.25) mg/dL Estimated GFR 32.7 ML/MIN Glucose 257 H (74-106) mg/dL POC Glucometer (74 to 106) mg/dL Hemoglobin A1c (4.5-6.0) % Lactic Acid (0.4-2.0) Calcium 9.0 (8.4-10.2) mg/dL Magnesium 2.0 (1.6-2.3) mg/dL Total Bilirubin 1.00 (0.2-1.3) mg/dL AST 37 (17-59) U/L ALT 32 (0-50) U/L Alkaline Phosphatase 98 (38-126) U/L Troponin I 0.038 H* (0.000-0.033) ng/mL NT-Pro-B Natriuret Pep 1750 (<300) pg/mL Serum Total Protein 6.1 L (6.3-8.2) g/dL Albumin 3.4 L (3.5-5.0) g/dL Vitamin B12 (239-931) pg/mL Folic Acid (2.76 - >20) ng/mL TSH 3rd Generation (0.470-4.680) mIU/L Urine Color (Yellow) Urine Appearance (Clear) Urine pH (4.6-8.0) Ur Specific [place] (1.005-1.030) Urine Protein (Negative) Urine Glucose (UA) (Negative) mg/dL Urine Ketones (Negative) Urine Blood (Negative) Urine Nitrite (Negative) Urine Bilirubin (Negative) Urine Urobilinogen (0.2) mg/dL Ur Leukocyte Esterase (Negative) U Hyaline Cast (Auto) (0-2) /LPF Urine Microscopic RBC (0-5) /HPF Urine Microscopic WBC (0-5) /HPF Ur Epithelial Cells (None Seen) /HPF Urine Bacteria (None Seen) /HPF Urine Culture Reflexed (NO) Urine Opiates Level (NEGATIVE) Ur Methadone (NEGATIVE) Urine Barbiturates (NEGATIVE) Ur Phencyclidine (PCP) (NEGATIVE) Urine Amphetamine (NEGATIVE) U Benzodiazepine Level (NEGATIVE) Urine Cocaine (NEGATIVE) Urine Marijuana (THC) (NEGATIVE) Ethyl Alcohol < 10 (0-10) mg/dL Influenza Type A Ag (NEGATIVE) Influenza Type B Ag (NEGATIVE) RSV (PCR) (NEGATIVE) SARS-CoV-2 (PCR) (NEGATIVE) 05/01/24 05/01/24 05/01/24 Range/Units 12:10 12:25 14:31 WBC (4.23-9.07) x10^3/uL RBC (4.63-6.08) x10^6/uL Hgb (13.7-17.5) g/dL Hct (40.1-51.0) % MCV (79.0-92.2) fL MCH (25.7-32.2) pg MCHC (32.3-36.5) g/dL RDW (11.6-14.4) % Plt Count (163-337) x10^3/uL MPV (9.4-12.4) fL Gran % (34.0-67.9) % Immature Gran % (Auto) (0.001-0.429) % Nucleat RBC Rel Count (0.00-0.2) % Eos # (Auto) (0.04-0.54) x10^3/uL Immature Gran # (Auto) (0.001-0.031) x10^3u/L Absolute Lymphs (auto) (1.32-3.57) x10^3/uL Absolute Monos (auto) (0.30-0.82) x10^3/uL Absolute Nucleated RBC (0.00-0.012) x10^3u/L Lymphocytes % (21.8-53.1) % Monocytes % (5.3-12.2) % Eosinophils % (0.8-7.0) % Basophils % (0.2-1.2) % Absolute Granulocytes (1.78-5.38) x10^3/uL Basophils # (0.01-0.08) x10^3/uL Sodium (135-145) mmol/L Potassium (3.5-5.1) mmol/L Chloride (98-107) mmol/L Carbon Dioxide (22-30) mmol/L Anion Gap (5-15) MEQ/L BUN (9-20) mg/dL Creatinine (0.66-1.25) mg/dL Estimated GFR ML/MIN Glucose (74-106) mg/dL POC Glucometer (74 to 106) mg/dL Hemoglobin A1c (4.5-6.0) % Lactic Acid 2.2 H 1.5 (0.4-2.0) Calcium (8.4-10.2) mg/dL Magnesium (1.6-2.3) mg/dL Total Bilirubin (0.2-1.3) mg/dL AST (17-59) U/L ALT (0-50) U/L Alkaline Phosphatase (38-126) U/L Troponin I (0.000-0.033) ng/mL NT-Pro-B Natriuret Pep (<300) pg/mL Serum Total Protein (6.3-8.2) g/dL Albumin (3.5-5.0) g/dL Vitamin B12 (239-931) pg/mL Folic Acid (2.76 - >20) ng/mL TSH 3rd Generation (0.470-4.680) mIU/L Urine Color (Yellow) Urine Appearance (Clear) Urine pH (4.6-8.0) Ur Specific [place] (1.005-1.030) Urine Protein (Negative) Urine Glucose (UA) (Negative) mg/dL Urine Ketones (Negative) Urine Blood (Negative) Urine Nitrite (Negative) Urine Bilirubin (Negative) Urine Urobilinogen (0.2) mg/dL Ur Leukocyte Esterase (Negative) U Hyaline Cast (Auto) (0-2) /LPF Urine Microscopic RBC (0-5) /HPF Urine Microscopic WBC (0-5) /HPF Ur Epithelial Cells (None Seen) /HPF Urine Bacteria (None Seen) /HPF Urine Culture Reflexed (NO) Urine Opiates Level (NEGATIVE) Ur Methadone (NEGATIVE) Urine Barbiturates (NEGATIVE) Ur Phencyclidine (PCP) (NEGATIVE) Urine Amphetamine (NEGATIVE) U Benzodiazepine Level (NEGATIVE) Urine Cocaine (NEGATIVE) Urine Marijuana (THC) (NEGATIVE) Ethyl Alcohol (0-10) mg/dL Influenza Type A Ag NEGATIVE (NEGATIVE) Influenza Type B Ag NEGATIVE (NEGATIVE) RSV (PCR) NEGATIVE (NEGATIVE) SARS-CoV-2 (PCR) NEGATIVE (NEGATIVE) 05/01/24 05/01/24 05/01/24 Range/Units 15:18 15:18 16:05 WBC (4.23-9.07) x10^3/uL RBC (4.63-6.08) x10^6/uL Hgb (13.7-17.5) g/dL Hct (40.1-51.0) % MCV (79.0-92.2) fL MCH (25.7-32.2) pg MCHC (32.3-36.5) g/dL RDW (11.6-14.4) % Plt Count (163-337) x10^3/uL MPV (9.4-12.4) fL Gran % (34.0-67.9) % Immature Gran % (Auto) (0.001-0.429) % Nucleat RBC Rel Count (0.00-0.2) % Eos # (Auto) (0.04-0.54) x10^3/uL Immature Gran # (Auto) (0.001-0.031) x10^3u/L Absolute Lymphs (auto) (1.32-3.57) x10^3/uL Absolute Monos (auto) (0.30-0.82) x10^3/uL Absolute Nucleated RBC (0.00-0.012) x10^3u/L Lymphocytes % (21.8-53.1) % Monocytes % (5.3-12.2) % Eosinophils % (0.8-7.0) % Basophils % (0.2-1.2) % Absolute Granulocytes (1.78-5.38) x10^3/uL Basophils # (0.01-0.08) x10^3/uL Sodium (135-145) mmol/L Potassium (3.5-5.1) mmol/L Chloride (98-107) mmol/L Carbon Dioxide (22-30) mmol/L Anion Gap (5-15) MEQ/L BUN (9-20) mg/dL Creatinine (0.66-1.25) mg/dL Estimated GFR ML/MIN Glucose (74-106) mg/dL POC Glucometer (74 to 106) mg/dL Hemoglobin A1c (4.5-6.0) % Lactic Acid (0.4-2.0) Calcium (8.4-10.2) mg/dL Magnesium (1.6-2.3) mg/dL Total Bilirubin (0.2-1.3) mg/dL AST (17-59) U/L ALT (0-50) U/L Alkaline Phosphatase (38-126) U/L Troponin I 0.033 (0.000-0.033) ng/mL NT-Pro-B Natriuret Pep (<300) pg/mL Serum Total Protein (6.3-8.2) g/dL Albumin (3.5-5.0) g/dL Vitamin B12 (239-931) pg/mL Folic Acid (2.76 - >20) ng/mL TSH 3rd Generation (0.470-4.680) mIU/L Urine Color Dark Yellow (Yellow) Urine Appearance Cloudy A (Clear) Urine pH 5.0 (4.6-8.0) Ur Specific [place] 1.025 (1.005-1.030) Urine Protein 100 A (Negative) Urine Glucose (UA) Negative (Negative) mg/dL Urine Ketones Trace A (Negative) Urine Blood Negative (Negative) Urine Nitrite Positive A (Negative) Urine Bilirubin Small A (Negative) Urine Urobilinogen 1.0 A (0.2) mg/dL Ur Leukocyte Esterase Small A (Negative) U Hyaline Cast (Auto) 3-5 A (0-2) /LPF Urine Microscopic RBC 0-2 (0-5) /HPF Urine Microscopic WBC 3-5 (0-5) /HPF Ur Epithelial Cells Rare (None Seen) /HPF Urine Bacteria None Seen (None Seen) /HPF Urine Culture Reflexed YES (NO) Urine Opiates Level NEGATIVE (NEGATIVE) Ur Methadone NEGATIVE (NEGATIVE) Urine Barbiturates NEGATIVE (NEGATIVE) Ur Phencyclidine (PCP) NEGATIVE (NEGATIVE) Urine Amphetamine NEGATIVE (NEGATIVE) U Benzodiazepine Level NEGATIVE (NEGATIVE) Urine Cocaine NEGATIVE (NEGATIVE) Urine Marijuana (THC) NEGATIVE (NEGATIVE) Ethyl Alcohol (0-10) mg/dL Influenza Type A Ag (NEGATIVE) Influenza Type B Ag (NEGATIVE) RSV (PCR) (NEGATIVE) SARS-CoV-2 (PCR) (NEGATIVE) 05/01/24 05/01/24 05/01/24 Range/Units 16:05 20:14 21:53 WBC (4.23-9.07) x10^3/uL RBC (4.63-6.08) x10^6/uL Hgb (13.7-17.5) g/dL Hct (40.1-51.0) % MCV (79.0-92.2) fL MCH (25.7-32.2) pg MCHC (32.3-36.5) g/dL RDW (11.6-14.4) % Plt Count (163-337) x10^3/uL MPV (9.4-12.4) fL Gran % (34.0-67.9) % Immature Gran % (Auto) (0.001-0.429) % Nucleat RBC Rel Count (0.00-0.2) % Eos # (Auto) (0.04-0.54) x10^3/uL Immature Gran # (Auto) (0.001-0.031) x10^3u/L Absolute Lymphs (auto) (1.32-3.57) x10^3/uL Absolute Monos (auto) (0.30-0.82) x10^3/uL Absolute Nucleated RBC (0.00-0.012) x10^3u/L Lymphocytes % (21.8-53.1) % Monocytes % (5.3-12.2) % Eosinophils % (0.8-7.0) % Basophils % (0.2-1.2) % Absolute Granulocytes (1.78-5.38) x10^3/uL Basophils # (0.01-0.08) x10^3/uL Sodium (135-145) mmol/L Potassium (3.5-5.1) mmol/L Chloride (98-107) mmol/L Carbon Dioxide (22-30) mmol/L Anion Gap (5-15) MEQ/L BUN (9-20) mg/dL Creatinine (0.66-1.25) mg/dL Estimated GFR ML/MIN Glucose (74-106) mg/dL POC Glucometer 272 H (74 to 106) mg/dL Hemoglobin A1c (4.5-6.0) % Lactic Acid (0.4-2.0) Calcium (8.4-10.2) mg/dL Magnesium (1.6-2.3) mg/dL Total Bilirubin (0.2-1.3) mg/dL AST (17-59) U/L ALT (0-50) U/L Alkaline Phosphatase (38-126) U/L Troponin I 0.022 (0.000-0.033) ng/mL NT-Pro-B Natriuret Pep (<300) pg/mL Serum Total Protein (6.3-8.2) g/dL Albumin (3.5-5.0) g/dL Vitamin B12 403 (239-931) pg/mL Folic Acid > 16.6 (2.76 - >20) ng/mL TSH 3rd Generation 1.188 (0.470-4.680) mIU/L Urine Color (Yellow) Urine Appearance (Clear) Urine pH (4.6-8.0) Ur Specific [place] (1.005-1.030) Urine Protein (Negative) Urine Glucose (UA) (Negative) mg/dL Urine Ketones (Negative) Urine Blood (Negative) Urine Nitrite (Negative) Urine Bilirubin (Negative) Urine Urobilinogen (0.2) mg/dL Ur Leukocyte Esterase (Negative) U Hyaline Cast (Auto) (0-2) /LPF Urine Microscopic RBC (0-5) /HPF Urine Microscopic WBC (0-5) /HPF Ur Epithelial Cells (None Seen) /HPF Urine Bacteria (None Seen) /HPF Urine Culture Reflexed (NO) Urine Opiates Level (NEGATIVE) Ur Methadone (NEGATIVE) Urine Barbiturates (NEGATIVE) Ur Phencyclidine (PCP) (NEGATIVE) Urine Amphetamine (NEGATIVE) U Benzodiazepine Level (NEGATIVE) Urine Cocaine (NEGATIVE) Urine Marijuana (THC) (NEGATIVE) Ethyl Alcohol (0-10) mg/dL Influenza Type A Ag (NEGATIVE) Influenza Type B Ag (NEGATIVE) RSV (PCR) (NEGATIVE) SARS-CoV-2 (PCR) (NEGATIVE) 05/02/24 05/02/24 05/02/24 Range/Units 04:48 04:48 04:48 WBC 7.8 (4.23-9.07) x10^3/uL RBC 2.86 L (4.63-6.08) x10^6/uL Hgb 9.6 L (13.7-17.5) g/dL Hct 29.4 L (40.1-51.0) % MCV 102.8 H (79.0-92.2) fL MCH 33.6 H (25.7-32.2) pg MCHC 32.7 (32.3-36.5) g/dL RDW 13.9 (11.6-14.4) % Plt Count 193 (163-337) x10^3/uL MPV 9.9 (9.4-12.4) fL Gran % 75.6 H (34.0-67.9) % Immature Gran % (Auto) 1.3 H (0.001-0.429) % Nucleat RBC Rel Count 0.0 (0.00-0.2) % Eos # (Auto) 0.21 (0.04-0.54) x10^3/uL Immature Gran # (Auto) 0.10 H (0.001-0.031) x10^3u/L Absolute Lymphs (auto) 0.89 L (1.32-3.57) x10^3/uL Absolute Monos (auto) 0.66 (0.30-0.82) x10^3/uL Absolute Nucleated RBC 0.00 (0.00-0.012) x10^3u/L Lymphocytes % 11.4 L (21.8-53.1) % Monocytes % 8.5 (5.3-12.2) % Eosinophils % 2.7 (0.8-7.0) % Basophils % 0.5 (0.2-1.2) % Absolute Granulocytes 5.89 H (1.78-5.38) x10^3/uL Basophils # 0.04 (0.01-0.08) x10^3/uL Sodium 138 (135-145) mmol/L Potassium 4.5 (3.5-5.1) mmol/L Chloride 105 (98-107) mmol/L Carbon Dioxide 26 (22-30) mmol/L Anion Gap 11.1 (5-15) MEQ/L BUN 44 H (9-20) mg/dL Creatinine 1.97 H (0.66-1.25) mg/dL Estimated GFR 33.5 ML/MIN Glucose 170 H (74-106) mg/dL POC Glucometer (74 to 106) mg/dL Hemoglobin A1c 7.50 H (4.5-6.0) % Lactic Acid (0.4-2.0) Calcium 8.6 (8.4-10.2) mg/dL Magnesium (1.6-2.3) mg/dL Total Bilirubin (0.2-1.3) mg/dL AST (17-59) U/L ALT (0-50) U/L Alkaline Phosphatase (38-126) U/L Troponin I (0.000-0.033) ng/mL NT-Pro-B Natriuret Pep (<300) pg/mL Serum Total Protein (6.3-8.2) g/dL Albumin (3.5-5.0) g/dL Vitamin B12 (239-931) pg/mL Folic Acid (2.76 - >20) ng/mL TSH 3rd Generation (0.470-4.680) mIU/L Urine Color (Yellow) Urine Appearance (Clear) Urine pH (4.6-8.0) Ur Specific [place] (1.005-1.030) Urine Protein (Negative) Urine Glucose (UA) (Negative) mg/dL Urine Ketones (Negative) Urine Blood (Negative) Urine Nitrite (Negative) Urine Bilirubin (Negative) Urine Urobilinogen (0.2) mg/dL Ur Leukocyte Esterase (Negative) U Hyaline Cast (Auto) (0-2) /LPF Urine Microscopic RBC (0-5) /HPF Urine Microscopic WBC (0-5) /HPF Ur Epithelial Cells (None Seen) /HPF Urine Bacteria (None Seen) /HPF Urine Culture Reflexed (NO) Urine Opiates Level (NEGATIVE) Ur Methadone (NEGATIVE) Urine Barbiturates (NEGATIVE) Ur Phencyclidine (PCP) (NEGATIVE) Urine Amphetamine (NEGATIVE) U Benzodiazepine Level (NEGATIVE) Urine Cocaine (NEGATIVE) Urine Marijuana (THC) (NEGATIVE) Ethyl Alcohol (0-10) mg/dL Influenza Type A Ag (NEGATIVE) Influenza Type B Ag (NEGATIVE) RSV (PCR) (NEGATIVE) SARS-CoV-2 (PCR) (NEGATIVE) 05/02/24 05/02/24 05/02/24 Range/Units 07:49 11:05 11:30 WBC (4.23-9.07) x10^3/uL RBC (4.63-6.08) x10^6/uL Hgb (13.7-17.5) g/dL Hct (40.1-51.0) % MCV (79.0-92.2) fL MCH (25.7-32.2) pg MCHC (32.3-36.5) g/dL RDW (11.6-14.4) % Plt Count (163-337) x10^3/uL MPV (9.4-12.4) fL Gran % (34.0-67.9) % Immature Gran % (Auto) (0.001-0.429) % Nucleat RBC Rel Count (0.00-0.2) % Eos # (Auto) (0.04-0.54) x10^3/uL Immature Gran # (Auto) (0.001-0.031) x10^3u/L Absolute Lymphs (auto) (1.32-3.57) x10^3/uL Absolute Monos (auto) (0.30-0.82) x10^3/uL Absolute Nucleated RBC (0.00-0.012) x10^3u/L Lymphocytes % (21.8-53.1) % Monocytes % (5.3-12.2) % Eosinophils % (0.8-7.0) % Basophils % (0.2-1.2) % Absolute Granulocytes (1.78-5.38) x10^3/uL Basophils # (0.01-0.08) x10^3/uL Sodium (135-145) mmol/L Potassium (3.5-5.1) mmol/L Chloride (98-107) mmol/L Carbon Dioxide (22-30) mmol/L Anion Gap (5-15) MEQ/L BUN (9-20) mg/dL Creatinine (0.66-1.25) mg/dL Estimated GFR ML/MIN Glucose (74-106) mg/dL POC Glucometer 189 H 168 H (74 to 106) mg/dL Hemoglobin A1c (4.5-6.0) % Lactic Acid (0.4-2.0) Calcium (8.4-10.2) mg/dL Magnesium (1.6-2.3) mg/dL Total Bilirubin (0.2-1.3) mg/dL AST (17-59) U/L ALT (0-50) U/L Alkaline Phosphatase (38-126) U/L Troponin I 0.013 (0.000-0.033) ng/mL NT-Pro-B Natriuret Pep (<300) pg/mL Serum Total Protein (6.3-8.2) g/dL Albumin (3.5-5.0) g/dL Vitamin B12 (239-931) pg/mL Folic Acid (2.76 - >20) ng/mL TSH 3rd Generation (0.470-4.680) mIU/L Urine Color (Yellow) Urine Appearance (Clear) Urine pH (4.6-8.0) Ur Specific [place] (1.005-1.030) Urine Protein (Negative) Urine Glucose (UA) (Negative) mg/dL Urine Ketones (Negative) Urine Blood (Negative) Urine Nitrite (Negative) Urine Bilirubin (Negative) Urine Urobilinogen (0.2) mg/dL Ur Leukocyte Esterase (Negative) U Hyaline Cast (Auto) (0-2) /LPF Urine Microscopic RBC (0-5) /HPF Urine Microscopic WBC (0-5) /HPF Ur Epithelial Cells (None Seen) /HPF Urine Bacteria (None Seen) /HPF Urine Culture Reflexed (NO) Urine Opiates Level (NEGATIVE) Ur Methadone (NEGATIVE) Urine Barbiturates (NEGATIVE) Ur Phencyclidine (PCP) (NEGATIVE) Urine Amphetamine (NEGATIVE) U Benzodiazepine Level (NEGATIVE) Urine Cocaine (NEGATIVE) Urine Marijuana (THC) (NEGATIVE) Ethyl Alcohol (0-10) mg/dL Influenza Type A Ag (NEGATIVE) Influenza Type B Ag (NEGATIVE) RSV (PCR) (NEGATIVE) SARS-CoV-2 (PCR) (NEGATIVE) Radiology Exams: Radiology Procedures Category Date Time Status CHEST 1 VIEW (PORTABLE) Stat Exams 05/01/24 11:58 Completed HEAD WITHOUT CONTRAST [CT] Stat Exams 05/01/24 13:03 Completed Assessment/Plan (1) UTI (urinary tract infection) Current Visit: Yes Status: Acute Assessment & Plan: -Follow culture. - IV Rocephin. - No prior history of UTIs. Code(s): N39.0 - URINARY TRACT INFECTION, SITE NOT SPECIFIED (2) Chest pain Current Visit: Yes Status: Acute Assessment & Plan: - Tele - Cardiology consult - Trops x3 - trend Code(s): R07.9 - CHEST PAIN, UNSPECIFIED (3) Bradycardia Current Visit: Yes Status: Acute Assessment & Plan: -Monitor HR trend on tele. - Usually has a HR in the 50s on Coreg per the patient. - Coreg stopped today - TSH WNL. Code(s): R00.1 - BRADYCARDIA, UNSPECIFIED (4) Chronic renal insufficiency Current Visit: Yes Status: Acute Assessment & Plan: -Monitor renal function and electrolytes. - Creat 1.97-improved, baseline 1.37 - follows Dr. Baez- nephrology Code(s): N18.9 - CHRONIC KIDNEY DISEASE, UNSPECIFIED (5) Dizziness Current Visit: Yes Status: Resolved Assessment & Plan: - resolved per pt - PT eval Code(s): R42 - DIZZINESS AND GIDDINESS (6) Macrocytic anemia Current Visit: Yes Status: Acute Assessment & Plan: - reviewed B12, folate, TSH. - Hgb 9.6 stable Code(s): D53.9 - NUTRITIONAL ANEMIA, UNSPECIFIED (7) Obesity (BMI 30-39.9) Current Visit: Yes Status: Acute Assessment & Plan: - BMI 36 - Advised diet and exercise control Code(s): E66.9 - OBESITY, UNSPECIFIED
[2024-05-02] MEDS: Effexor XR 75 MG PO SCH ×2 (12:24→21:48)
--- NOTE | 2024-05-02 13:55 | PCM.CONS ---
History of Present Illness - Date of Consult Date of Encounter: 05/02/24 Consulting Maintenance Clerk: KERON SHETH MD Requesting Provider: Attending Provider: JIL NAVAS MD Primary Care Provider: PCP: CRIS CORBETT Consent was: Given for this tele-med encounter - Consult Narrative Reason for Consult: Bradycardia, abnormal ECG, chest pain HPI: Single episode of typical angina (substernal chest pressure) yesterday off Imdur and on carvedilol 12.5 mg twice a day. Two episodes of angina this am off Imdur and on carvedilol 18.75 mg twice daily. He had refused Imdur this am as he had just taken sl NTG already. All anginal episodes relieved within 2 minutes of sl NTG and within 10 minutes of informing nurse. Patient may have waited up to 45 minutes to inform nurse. The increased frequency over the past two days is not unusual for him. The prolonged episode of chest pressure not responding to NTG in November represented his [place] pain. This lead to his fall and November ER visit before transfer to his cloth measurer. cc:: The requesting physician will be sent a copy of the consult. his cloth measurer Review of Systems - Review of Systems All systems: all other systems reviewed and were unremarkable - Past Medical History Past Medical History: Yes Neurological History: Peripheral Neuropathy ENT History: No Pertinent History Cardiac History: Angina, Hypertension, Myocardial Infarction ([place]) Respiratory History: CHF, COPD, Other Endocrine Medical History: Diabetes Type II Musculoskelatal History: No Pertinent History, Osteoarthritis GI Medical History: No Pertinent History History: Other Pyscho-Social History: No Pertinent History Male Reproductive Disorders: Prostate Cancer Comment: 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 R TSA, PAST CARDIAC REHAB.HX KIDNEY CANCER. HX PROSTATE CANCER - Past Surgical History Past Surgical History: Yes Neuro Surgical History: No Pertinent History Cardiac History: No Pertinent History, CABG (X5 in 2006), Cardiac Catheterization (11/19/2023 - no intervention required), Cardiac Stent (PCI in 2018, PCI in 2021 prior to TAVR), Valve Replacement (TAVR in 2021) Respiratory Surgery: No Pertinent History GI Surgical History: Hernia Repair Genitourinary Surgical Hx: No Pertinent History, Kidney Surgery Musculskeletal Surgical Hx: No Pertinent History Male Surgical History: Prostate Surgery Other Surgical History: cancer removed from kidney partial nephrectomy and prostatectomy. mesh to right flank area. - Social History Smoking Status: Never smoker Exposure to second hand smoke: No Alcohol: None Drug Use: none - Social Determinants of Health Will the patient participate in the screening: Yes Do you worry about a steady place to live?: No Do you have any problems with any of the following?: No known problems In the past 12 months,have you had to go without utilities?: No Have you or anyone in your house had to go without enough: No Transportation Issues: No Has anyone in your support network made you feel unsafe?: No Does the patient want assistance with any of the above?: No Medications & Allergies Home Medications: Home Medication List Amlodipine Besylate 5 mg [Norvasc 5 mg] 10 mg PO DAILY 10/07/20 [History Confirmed 05/01/24] Isosorbide Mononitrate 30 mg [Imdur 30 MG] 120 mg PO DAILY 10/07/20 [History Confirmed 05/01/24] Losartan Potassium 50 mg [Cozaar 50 MG] 100 mg PO DAILY 10/07/20 [History Confirmed 05/01/24] Nitroglycerin 0.4 mg Tablet [Nitrostat 0.4 MG Tablet] 0.4 mg SL UD 10/07/20 [History Confirmed 05/01/24] Aspirin 81 mg PO DAILY #0 10/16/20 [Rx Confirmed 05/01/24] Atorvastatin Calcium 40 mg PO DAILY 11/18/23 [History Confirmed 05/01/24] Clopidogrel Bisulfate [Plavix] 75 mg PO DAILY 11/18/23 [History Confirmed ] Furosemide 20 mg [Lasix 20 mg] 20 mg PO DAILY 11/18/23 [History Confirmed 05/01/24] Glipizide 10 mg [Glucotrol 10 MG] 10 mg PO BID 11/18/23 [History Confirmed 05/01/24] Omeprazole 20 mg PO DAILY 11/18/23 [History Confirmed 05/01/24] Pentoxifylline 400 mg PO DAILY 11/18/23 [History Confirmed 05/01/24] Ranolazine 500 MG [Ranexa 500 MG] 1,000 mg PO BID 11/18/23 [History Conf irmed 05/01/24] Metformin HCl 500 mg [Glucophage 500 MG] 500 mg PO BIDWM 04/17/24 [History Confirmed 05/01/24] Diphenhydramine HCl 25 mg [Benadryl 25 mg Capsule] 25 mg PO QHS 05/01/24 [History Confirmed 05/01/24] Gabapentin [Neurontin ] 100 mg PO BID 05/01/24 [History Confirmed 05/01/24] Venlafaxine HCl ER 75 mg [Effexor XR 75 MG] 75 mg PO QHS 05/01/24 [History Confirmed 05/02/24] Carvedilol [Coreg ] 6.25 mg PO BID 30 Days #60 tablet 05/03/24 [Rx] Carvedilol 12.5 mg [Coreg 12.5 mg] 12.5 mg PO BID 30 Days #60 tablet 05/03/24 [Rx] Allergies/Adverse Reactions: Allergies Allergy/AdvReac Type Severity Reaction Status Date / Time morphine AdvReac Intermediate Itching Verified 05/01/24 11:30 Exam - Vitals Vital Signs: Vital Signs - 24 hr Temp Pulse Resp BP BP Pulse Ox 05/02/24 12:00 98 F 72 18 161/70 95 05/02/24 08:03 65 128/60 05/02/24 08:02 57 L 116/58 05/02/24 08:01 60 119/59 05/02/24 08:00 98.2 F 20 05/02/24 07:39 91 L 05/02/24 03:46 98.0 F 66 20 128/60 95 05/01/24 23:28 97.7 F 67 18 96/50 95 05/01/24 21:00 93 L 05/01/24 18:27 97.5 F 62 14 117/58 92 L 05/01/24 18:22 92 L 05/01/24 18:06 63 14 94/41 93 L 05/01/24 18:05 62 14 93/39 93 L 05/01/24 18:00 62 15 78/52 92 L 05/01/24 17:55 62 12 85/37 94 L 05/01/24 17:54 61 20 94 L 05/01/24 17:49 93 L 05/01/24 17:10 94 L 05/01/24 17:09 93 L 05/01/24 16:31 66 23 89/50 05/01/24 16:01 51 L 14 91/47 95 05/01/24 15:30 51 L 15 104/52 05/01/24 15:00 48 L 18 103/54 95 05/01/24 14:39 49 L 14 82/40 96 05/01/24 14:30 49 L 16 87/44 93 L 05/01/24 14:17 49 L 16 101/45 93 L General:: alert and oriented x 4, no acute distress HEENT: EOMI, No JVD Cardiovascular Exam: regular rate/rhythm, murmur (Grade II/ early peaking crescendo/decrescendo systolic murmur at RUSB), other (Normal S1 and S2.), No gallop Respiratory Exam: normal breath sounds SpO2: 95 Gastrointestinal/Abdomen Exam: normal bowel sounds Extremity Exam: warm, well perfused, edema (1+ at level of calves bilaterally (chronic)), other (Hyperpigmentation midway between ankles and knees bilaterally) Neurologic: No motor deficits Results Vital Signs: Vital Signs - 24 hr Temp Pulse Resp BP BP Pulse Ox 05/02/24 12:00 98 F 72 18 161/70 95 05/02/24 08:03 65 128/60 05/02/24 08:02 57 L 116/58 05/02/24 08:01 60 119/59 05/02/24 08:00 98.2 F 20 05/02/24 07:39 91 L 05/02/24 03:46 98.0 F 66 20 128/60 95 05/01/24 23:28 97.7 F 67 18 96/50 95 05/01/24 21:00 93 L 05/01/24 18:27 97.5 F 62 14 117/58 92 L 05/01/24 18:22 92 L 05/01/24 18:06 63 14 94/41 93 L 05/01/24 18:05 62 14 93/39 93 L 05/01/24 18:00 62 15 78/52 92 L 05/01/24 17:55 62 12 85/37 94 L 05/01/24 17:54 61 20 94 L 05/01/24 17:49 93 L 05/01/24 17:10 94 L 05/01/24 17:09 93 L 05/01/24 16:31 66 23 89/50 05/01/24 16:01 51 L 14 91/47 95 05/01/24 15:30 51 L 15 104/52 05/01/24 15:00 48 L 18 103/54 95 05/01/24 14:39 49 L 14 82/40 96 05/01/24 14:30 49 L 16 87/44 93 L 05/01/24 14:17 49 L 16 101/45 93 L Pain Assessment - Last Documented Pain Intensity 0 Intake and Output: Intake & Output 04/30/24 05/01/24 05/02/24 05/03/24 11:59 11:59 11:59 11:59 Intake Total 2080 120 Output Total 200 700 Balance 1880 -580 Weight 108.4 kg 107.5 kg LAB: I have reviewed the Labs in [employer]. Serial troponin-I (Normal 0.033 or less): 05/01/2024: 0.038, 0.033, 0.022 05/02/2024: 0.013, 0.014, 0.016 05/03/2024: 0.013, 0.097 Radiology Exams: Radiology Procedures Category Date Time Status CHEST 1 VIEW (PORTABLE) Stat Exams 05/01/24 11:58 Completed HEAD WITHOUT CONTRAST [CT] Stat Exams 05/01/24 13:03 Completed CXR (AP) 05/01/2024: stable left mid to lower lung subsegmental atelectasis/scarring. Right lung remains clear. Heart not enlarged with interval cardiac valve replacement surgery. Bony thorax intact again with osteopenia and mild degenerative changes. Interval right shoulder arthroplasty. Tracing 1 Attestation: I have reviewed this EKG and interpreted as documented below. EKG Narrative: ECGs: 05/02/2024 at 1105: NSR with first degree AV block at 69 bpm. OR 0.211. RBBB. Old inferior ijnfarct. Nonspecific ST abnormality. 05/02/2024 at 0339: NSR with first degree AV block at 63 bpm. Intervals: 0.225/0.169/0.481 (0.498). RBBB. Nonspecific ST abnormality 05/01/2024 at 1149: Sinus bradycardia with first degree AV block at 49 bpm. OR 0.226. RBBB. Nonspecific ST abnormality. 04/17/2024: NSR with first degree AV block at 69 bpm. OR 0.211. RBBB. Cannot rule old inferior infarct. Nonspecific ST abnormality. Assessment & Plan (1) Elevated troponin Current Visit: Yes Status: Acute Assessment & Plan: Presentation not consistent with acute coronary syndrome. Minimal elevation with first lab draw most likely related to decreased clearance with acute kidney injury. No intervention required in November 2023. No acute changes on ECG. Two additional episodes of angina today at rest on lower doses of his antanginal regimen. Second troponin with mild elevation troponin-I .097. Will follow trend overnight. 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 Will resume his entire preadmission antanginal regimen. Will increase carvedilol back to 25mg twice daily. Educated patient that Imdur should be taken daily even if he takes sl NTG. Call placed to his cloth measurer. Will attempt to obtain November 2023 cardiac cath report. Code(s): I25.118 - ATHSCL HEART DISEASE OF [place] COR ART [facility] PCTRS (3) Light headedness Current Visit: Yes Status: Resolved Assessment & Plan: Secondary to hypotension related to mild volume depletion. Hypotension resolved with IV fluids without change in degree of bradycardia. Code(s): R42 - DIZZINESS AND GIDDINESS (4) Bradycardia Current Visit: Yes Status: Acute Assessment & Plan: Sinus bradycardia secondary to beta-bria therapy with doubling of carvedilol dose in November 2023. Patient with stable pattern of angina. With his 3 bouts of angina over the past two days, we will increase carvedilol back to 25 mg twice daily. Instructed patient to document HR and BP twice daily for at least 10 days after discharge to share with his cloth measurer., Dr Latoya Louis. At this point, I am willing to accept bradycardia if it better controls his angina. Code(s): R00.1 - BRADYCARDIA, UNSPECIFIED (5) Acute kidney failure Current Visit: Yes Status: Acute Assessment & Plan: Acute on chronic kidney disease - Secondary to volume depletion related to decreased po intake. Encouraged patient to drink more fluids. As per primary service. - Encounter Encounter: "The entirety of this encounter was performed via Telemedicine using audio and visual " Patient's was also present. Case discussed with Natalie Marcial NP. Keron Sheth MD [facility] [phone]
[2024-05-02] MEDS: Neurontin PO SCH (15:38)
[2024-05-02] MEDS: ZOCOR 20MG PO SCH (21:48)
[2024-05-02] MEDS: BENADRYL 25 MG CAPSULE PO SCH (21:48)
[2024-05-02] MEDS: Ranexa 500 MG PO SCH (21:48)
[2024-05-02] MEDS: COREG 12.5 MG PO SCH (22:33)
[2024-05-03 04:56] LABS: Hematocrit 28.2 % (40.1-51.0); Hemoglobin 9.3 g/dL (13.7-17.5); Mean Cell Volume 101.8 fL (79.0-92.2); Mean Corpuscular Hemoglobin 33.6 pg (25.7-32.2); Mean Platelet Volume 10.3 fL (9.4-12.4); Platelet Count 209 x10^3/uL (163-337); Red Blood Count 2.77 x10^6/uL (4.63-6.08); Red Cell Distribution Width 14.2 % (11.6-14.4); White Blood Count 6.7 x10^3/uL (4.23-9.07)
[2024-05-03 05:18] LABS: ALBUMIN 3.3 g/dL (3.5-5.0); ANION GAP 11.5 MEQ/L (5-15); BILIRUBIN,TOTAL 0.6 mg/dL (0.2-1.3); Calcium 8.8 mg/dL (8.4-10.2); Creatinine 1 1.86 mg/dL (0.66-1.25); EST GLOMERULAR FILTRATION RATE 35.9 ML/MIN; Potassium 4.5 mmol/L (3.5-5.1); Total Protein 6.1 g/dL (6.3-8.2)
[2024-05-03] MEDS ORDERED: NON-FORMULARY ITEM (Pentoxifylline [Pentoxifylline] 400 MG Tablet.Er) PO SCH (10:00)
[2024-05-03] MEDS ORDERED: NON-FORMULARY ITEM (Aspirin [Aspirin] 81 MG Tablet) PO SCH (10:00)
[2024-05-03] MEDS ORDERED: NON-FORMULARY ITEM (Atorvastatin Calcium [Atorvastatin Calcium] 10 MG Tablet) PO SCH (10:00)
[2024-05-03] MEDS ORDERED: NORVASC 5 MG PO SCH (10:00)
[2024-05-03] MEDS ORDERED: NON-FORMULARY ITEM (Omeprazole [Omeprazole] 20 MG Capsule.Dr) PO SCH (10:00)
[2024-05-03] MEDS ORDERED: Nitrostat 0.4 MG Tablet SL ONE (10:27)
[2024-05-03] MEDS: Nitrostat 0.4 MG Tablet SL PRN (10:30)
[2024-05-03] MEDS: COREG 12.5 MG PO SCH (11:43)
[2024-05-03] MEDS: Coreg PO SCH (11:43)
[2024-05-03] MEDS: Miralax Powder 17GM PACKET PO SCH (12:41)
--- NOTE | 2024-05-03 13:52 | PCM.NOTE ---
Date and Time: 05/03/24 1346 Subjective Assessment: Single episode of typical angina (substernal chest pressure) yesterday off Imdur and on carvedilol 12.5 mg twice a day. Two episodes of angina this am off Imdur and on carvedilol 18.75 mg twice daily. He had refused Imdur this am as he had just taken sl NTG already. All anginal episodes relieved within 2 minutes of sl NTG and within 10 minutes of informing nurse. Patient may have waited up to 45 minutes to inform nurse. The increased frequency over the past two days is not unusual for him. The prolonged episode of chest pressure not responding to NTG in November represented his [place] pain. This lead to his fall and November ER visit before transfer to his flexible shaft winder. Exam General:: alert and oriented x 4, no acute distress HEENT: EOMI Cardiovascular: Regular Rate & Rhythm, s1 s2 (Normal), murmur (Grade II/ early peaking crescendo/decrescendo systolic murmur at the RUSB.) Respiratory:: clear to auscultation alexus, No wheezes Abdominal: active bowel sounds x 4 Extremity Exam: edema (1+ at level of calves bilaterally) Neurologic: other (Grossly nonfocal) Objective Data Vital Signs: Vital Signs - 24 hr Temp Pulse Resp BP BP Pulse Ox 05/03/24 12:31 73 140/66 05/03/24 10:30 81 157/72 157/72 05/03/24 07:41 97.8 F 67 18 143/64 99 05/03/24 04:00 97.5 F 60 18 129/60 92 L 05/03/24 00:00 98.0 F 60 18 117/56 95 05/02/24 23:23 95 05/02/24 22:31 62 05/02/24 21:50 153/70 05/02/24 20:00 97.8 F 67 18 120/58 93 L 05/02/24 18:31 93 L 05/02/24 16:00 97.9 F 77 18 119/59 93 L Pain Assessment - Last Documented Pain Intensity 6 Intake and Output: Intake & Output 05/01/24 05/02/24 05/03/24 05/04/24 11:59 11:59 11:59 11:59 Intake Total 2080 1060 240 Output Total 200 700 Balance 1880 360 240 Weight 108.4 kg 107.5 kg 110.2 kg LAB: [facility] Lab Results: Lab Results-Last 24 Hours 05/02/24 05/02/24 05/02/24 Range/Units 14:00 16:49 17:15 WBC (4.23-9.07) x10^3/uL RBC (4.63-6.08) x10^6/uL Hgb (13.7-17.5) g/dL Hct (40.1-51.0) % MCV (79.0-92.2) fL MCH (25.7-32.2) pg MCHC (32.3-36.5) g/dL RDW (11.6-14.4) % Plt Count (163-337) x10^3/uL MPV (9.4-12.4) fL Sodium (135-145) mmol/L Potassium (3.5-5.1) mmol/L Chloride (98-107) mmol/L Carbon Dioxide (22-30) mmol/L Anion Gap (5-15) MEQ/L BUN (9-20) mg/dL Creatinine (0.66-1.25) mg/dL Estimated GFR ML/MIN Glucose (74-106) mg/dL POC Glucometer 208 H (74 to 106) mg/dL Calcium (8.4-10.2) mg/dL Total Bilirubin (0.2-1.3) mg/dL AST (17-59) U/L ALT (0-50) U/L Alkaline Phosphatase (38-126) U/L Troponin I 0.014 0.016 (0.000-0.033) ng/mL Serum Total Protein (6.3-8.2) g/dL Albumin (3.5-5.0) g/dL 05/02/24 05/03/24 05/03/24 Range/Units 21:42 04:51 04:51 WBC 6.7 (4.23-9.07) x10^3/uL RBC 2.77 L (4.63-6.08) x10^6/uL Hgb 9.3 L (13.7-17.5) g/dL Hct 28.2 L (40.1-51.0) % MCV 101.8 H (79.0-92.2) fL MCH 33.6 H (25.7-32.2) pg MCHC 33.0 (32.3-36.5) g/dL RDW 14.2 (11.6-14.4) % Plt Count 209 (163-337) x10^3/uL MPV 10.3 (9.4-12.4) fL Sodium 137 (135-145) mmol/L Potassium 4.5 (3.5-5.1) mmol/L Chloride 105 (98-107) mmol/L Carbon Dioxide 25 (22-30) mmol/L Anion Gap 11.5 (5-15) MEQ/L BUN 46 H (9-20) mg/dL Creatinine 1.86 H (0.66-1.25) mg/dL Estimated GFR 35.9 ML/MIN Glucose 185 H (74-106) mg/dL POC Glucometer 185 H (74 to 106) mg/dL Calcium 8.8 (8.4-10.2) mg/dL Total Bilirubin 0.60 (0.2-1.3) mg/dL AST 36 (17-59) U/L ALT 47 (0-50) U/L Alkaline Phosphatase 93 (38-126) U/L Troponin I (0.000-0.033) ng/mL Serum Total Protein 6.1 L (6.3-8.2) g/dL Albumin 3.3 L (3.5-5.0) g/dL 05/03/24 05/03/24 05/03/24 Range/Units 06:55 10:52 11:42 WBC (4.23-9.07) x10^3/uL RBC (4.63-6.08) x10^6/uL Hgb (13.7-17.5) g/dL Hct (40.1-51.0) % MCV (79.0-92.2) fL MCH (25.7-32.2) pg MCHC (32.3-36.5) g/dL RDW (11.6-14.4) % Plt Count (163-337) x10^3/uL MPV (9.4-12.4) fL Sodium (135-145) mmol/L Potassium (3.5-5.1) mmol/L Chloride (98-107) mmol/L Carbon Dioxide (22-30) mmol/L Anion Gap (5-15) MEQ/L BUN (9-20) mg/dL Creatinine (0.66-1.25) mg/dL Estimated GFR ML/MIN Glucose (74-106) mg/dL POC Glucometer 188 H 251 H (74 to 106) mg/dL Calcium (8.4-10.2) mg/dL Total Bilirubin (0.2-1.3) mg/dL AST (17-59) U/L ALT (0-50) U/L Alkaline Phosphatase (38-126) U/L Troponin I 0.013 (0.000-0.033) ng/mL Serum Total Protein (6.3-8.2) g/dL Albumin (3.5-5.0) g/dL Serial troponin-I (Normal 0.033 or less): 05/01/2024: 0.038, 0.033, 0.022 05/02/2024: 0.013, 0.014, 0.016 05/03/2024: 0.013, 0.097 Cr 2.01 to 1.86 Radiology Exams: Radiology Procedures Category Date Time Status HEAD WITHOUT CONTRAST [CT] Stat Exams 05/01/24 13:03 Completed Tracing 1 Attestation: I have reviewed this EKG and interpreted as documented below. EKG Narrative: ECG 05/03/2024: NSR at 82 bpm. RBBB. Precordial leads are placed differently making ST depression related to RBBB look worse in leads V4-V6. Multi-Disciplinary Progress Notes: Multi-Disciplinary Progress Notes 05/03/24 10:15 Case Management Note by Naomy Rock S/W PATIENT- HE CONTINUES TO DENY ANY NEW NEEDS AT TIME OF DC. HE PLANS TO DC HOME TO HIS PLF AT TIME OF DC Initialized on 05/03/24 10:15 - END OF NOTE Assessment & Plan (1) Elevated troponin Current Visit: Yes Status: Acute Assessment & Plan: Presentation not consistent with acute coronary syndrome. Minimal elevation with first lab draw most likely related to decreased clearance with acute kidney injury. No intervention required in November 2023. No acute changes on ECG. Two additional episodes of angina today at rest on lower doses of his antanginal regimen. Second troponin with mild elevation troponin-I .097. Will follow trend overnight. 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 Will resume his entire preadmission antanginal regimen. Will increase carvedilol back to 25mg twice daily. Educated patient that Imdur should be taken daily even if he takes sl NTG. Call placed to his flexible shaft winder. Will attempt to obtain November 2023 cardiac cath report. Code(s): I25.118 - ATHSCL HEART DISEASE OF [place] COR ART W [facility]G PCTRS (3) Bradycardia Current Visit: Yes Status: Acute Assessment & Plan: Sinus bradycardia secondary to beta-bria therapy with doubling of carvedilol dose in November 2023. Patient with stable pattern of angina. With his 3 bouts of angina over the past two days, we will increase carvedilol back to 25 mg twice daily. Instructed patient to document HR and BP twice daily for at least 10 days after discharge to share with his flexible shaft winder., Dr Latoya Louis. At this poi nt, I am willing to accept bradycardia if it better controls his angina. Code(s): R00.1 - BRADYCARDIA, UNSPECIFIED (4) Light headedness Current Visit: Yes Status: Resolved Assessment & Plan: Secondary to hypotension related to mild volume depletion. Hypotension resolved with IV fluids without change in degree of bradycardia. Code(s): R42 - DIZZINESS AND GIDDINESS (5) Acute kidney failure Current Visit: Yes Status: Acute Assessment & Plan: Slowly improving with hydration. - Encounter Encounter: "The entirety of this encounter was performed via Telemedicine using audio and visual " Patient granted permission for this type of encunter. His was also present. Case discussed with Monica Guy MD [facility] [employer] [phone]
--- NOTE | 2024-05-03 13:57 | PCM.DS ---
Discharge Summary Date of Admission: 05/01/24 18:13 Date of Discharge: 05/03/24 Admitting Physician: JIL NAVAS MD Consults: Consults on Case 05/02/24 11:14 Consult Cardiology ROUTINE Primary Care Provider: CRIS CORBETT Allergies Allergies morphine Adverse Reaction (Intermediate, Verified 05/01/24 11:30) Itching Hospital Summary - Hospital Course Hospital Course: 05/02/24 is a 83 year old male with a history of diabetes, CAD (s/p CABG & cardiac stents and follows with Dr. Louis at [place]). He presented to the ED on 05/01/24 with his for evaluation of dizziness and nausea. Patient states he was with his as she was scheduled for procedure. While in the waiting room at our hospital patient developed the onset of symptoms. However upon IP admission evaluation patient's symptoms had resolved. He states that he did not have any chest pain. He does state that he may not have eaten a full meal for breakfast. On physical exam in the ED the patient appeared pale and was noted to have transient bradycardia to the 40s. He denied shortness of breath. No nausea vomiting or diaphoresis. Patient reported to the ED that has been experiencing a ongoing cough, which he attributes that to a viral infection. No vomiting or diarrhea. No rash. No fever. Patient states he otherwise feels well. In the ED, the patient received IV fluids and also IV antibiotics due to a UA suggestive of a possible UTI. He states that his last titration (doubling from 12.5 mg po bid to 25 mg po bid) of Coreg was in November 2023. Early this morning pt states he was feeling fine then developed CP around 11:30. He states he normally takes a nitro and feels better, he also did not have his Imdur this morning and feels it may also be related to that. EKG reviwed and cardiology con sulted. Trop x3 ordered. Cp went away after EKG competed. HR, BP and dizziness resolved today. Pt does have a heart murumur and reposrt he is unsure if he has had this in the past. HARPREET improving. Will keep pt another day and trend trops. He denies SOB, abd. pain, N/V/D. 05/03/24 Pt resting inbed this am and explained he was ready to go home. He developed chest pressure and requested nitro be gave. He refused to take Imdur. Coreg held as nitro gave. Bp rechecked an hour later and ok so coreg gave. He still refused to take Imdur until later. He then again developed chest pressure before noon an d another nitro gave. Troponins and EKG ordered with first episode of chest pressure. Discussed pt case with cardiology. Will trend trops if negative will d/c today. Pt reports chronic angina and takes nitro at home often. He reported to cardiology a different story in which he only takes twice a week. Pt requested Colace for constipation and Mucinex for nasal congestion be ordered today. - Vitals & Intake/Output Vital Signs: Vital Signs Temperature 97.8 F 05/03/24 07:41 Pulse Rate 73 05/03/24 12:31 Respiratory Rate 18 05/03/24 07:41 Blood Pressure 140/66 05/03/24 12:31 O2 Sat by Pulse Oximetry 99 05/03/24 07:41 Intake & Output: Intake & Output 05/01/24 05/02/24 05/03/24 05/04/24 11:59 11:59 11:59 11:59 Intake Total 2080 1060 240 Output Total 200 700 Balance 1880 360 240 Weight 108.4 kg 107.5 kg 110.2 kg - Lab Result Diagrams: 05/03/24 04:51 05/03/24 04:51 Lab Results-Last 24 Hrs: Lab Results-Last 24 Hours 05/02/24 05/02/24 05/02/24 Range/Units 14:00 16:49 17:15 WBC (4.23-9.07) x10^3/uL RBC (4.63-6.08) x10^6/uL Hgb (13.7-17.5) g/dL Hct (40.1-51.0) % MCV (79.0-92.2) fL MCH (25.7-32.2) pg MCHC (32.3-36.5) g/dL RDW (11.6-14.4) % Plt Count (163-337) x10^3/uL MPV (9.4-12.4) fL Sodium (135-145) mmol/L Potassium (3.5-5.1) mmol/L Chloride (98-107) mmol/L Carbon Dioxide (22-30) mmol/L Anion Gap (5-15) MEQ/L BUN (9-20) mg/dL Creatinine (0.66-1.25) mg/dL Estimated GFR ML/MIN Glucose (74-106) mg/dL POC Glucometer 208 H (74 to 106) mg/dL Calcium (8.4-10.2) mg/dL Total Bilirubin (0.2-1.3) mg/dL AST (17-59) U/L ALT (0-50) U/L Alkaline Phosphatase (38-126) U/L Troponin I 0.014 0.016 (0.000-0.033) ng/mL Serum Total Protein (6.3-8.2) g/dL Albumin (3.5-5.0) g/dL 05/02/24 05/03/24 05/03/24 Range/Units 21:42 04:51 04:51 WBC 6.7 (4.23-9.07) x10^3/uL RBC 2.77 L (4.63-6.08) x10^6/uL Hgb 9.3 L (13.7-17.5) g/dL Hct 28.2 L (40.1-51.0) % MCV 101.8 H (79.0-92.2) fL MCH 33.6 H (25.7-32.2) pg MCHC 33.0 (32.3-36.5) g/dL RDW 14.2 (11.6-14.4) % Plt Count 209 (163-337) x10^3/uL MPV 10.3 (9.4-12.4) fL Sodium 137 (135-145) mmol/L Potassium 4.5 (3.5-5.1) mmol/L Chloride 105 (98-107) mmol/L Carbon Dioxide 25 (22-30) mmol/L Anion Gap 11.5 (5-15) MEQ/L BUN 46 H (9-20) mg/dL Creatinine 1.86 H (0.66-1.25) mg/dL Estimated GFR 35.9 ML/MIN Glucose 185 H (74-106) mg/dL POC Glucometer 185 H (74 to 106) mg/dL Calcium 8.8 (8.4-10.2) mg/dL Total Bilirubin 0.60 (0.2-1.3) mg/dL AST 36 (17-59) U/L ALT 47 (0-50) U/L Alkaline Phosphatase 93 (38-126) U/L Troponin I (0.000-0.033) ng/mL Serum Total Protein 6.1 L (6.3-8.2) g/dL Albumin 3.3 L (3.5-5.0) g/dL 05/03/24 05/03/24 05/03/24 Range/Units 06:55 10:52 11:42 WBC (4.23-9.07) x10^3/uL RBC (4.63-6.08) x10^6/uL Hgb (13.7-17.5) g/dL Hct (40.1-51.0) % MCV (79.0-92.2) fL MCH (25.7-32.2) pg MCHC (32.3-36.5) g/dL RDW (11.6-14.4) % Plt Count (163-337) x10^3/uL MPV (9.4-12.4) fL Sodium (135-145) mmol/L Potassium (3.5-5.1) mmol/L Chloride (98-107) mmol/L Carbon Dioxide (22-30) mmol/L Anion Gap (5-15) MEQ/L BUN (9-20) mg/dL Creatinine (0.66-1.25) mg/dL Estimated GFR ML/MIN Glucose (74-106) mg/dL POC Glucometer 188 H 251 H (74 to 106) mg/dL Calcium (8.4-10.2) mg/dL Total Bilirubin (0.2-1.3) mg/dL AST (17-59) U/L ALT (0-50) U/L Alkaline Phosphatase (38-126) U/L Troponin I 0.013 (0.000-0.033) ng/mL Serum Total Protein (6.3-8.2) g/dL Albumin (3.5-5.0) g/dL Micro Results-Entire Visit: Microbiology 05/01/24 15:18 Urine Culture - Final Clean Catch Midstream <10K NORMAL SKIN FRANK PROBABLE SKIN CONTAMINANT Accuchecks Date 05/03/24 Date 05/03/24 Date 05/02/24 Time 16:58 - Radiology Exams Ordered Rad Exams-Entire Visit: Radiology Procedures Category Date Time Status HEAD WITHOUT CONTRAST [CT] Stat Exams 05/01/24 13:03 Completed - Procedures and Test Procedures and Tests throughout Hospitalization: Therapy Orders & Screens 05/01/24 19:00 EKG REPEAT IN AM Comment: Diagnosis: ACS, dizziness, hypotension 05/02/24 09:10 PT Eval & Treat (MD Order) ONCE Reason for Eval:: dizziness Diagnosis: ACS, dizziness, hypotension 05/02/24 10:59 EKG ROUTINE Comment: Diagnosis: ACS, dizziness, hypotension EKG Reason: Chest Pain 05/03/24 10:19 EKG STAT Comment: chest pressure Diagnosis: ACS, dizziness, hypotension EKG Reason: Other Discharge Exam General Appearance: no apparent distress, alert Neurologic Exam: alert, oriented x 3, cooperative, normal mood/affect, nml cerebellar function, sensation nml, No motor deficits Eye Exam: PERRL, EOMI, eyes nml inspection Ears, Nose, Throat Exam: normal ENT inspection, pharynx normal, moist mucous mem branes Neck Exam: normal inspection, non-tender, supple, full range of motion Respiratory Exam: normal breath sounds, lungs clear, No respiratory distress Cardiovascular Exam: regular rate/rhythm, normal heart sounds Gastrointestinal/Abdomen Exam: soft, No tenderness, No mass Male Genitalia Exam: deferred Rectal Exam: deferred Back Exam: normal inspection, normal range of motion, No CVA tenderness, No vertebral tenderness Extremity Exam: normal inspection, normal range of motion Skin Exam: normal color, warm, dry Final Diagnosis/Problem List - Final Discharge Diagnosis/Problem (1) UTI (urinary tract infection) Current Visit: Yes Status: Acute Code(s): N39.0 - URINARY TRACT INFECTION, SITE NOT SPECIFIED (2) Chest pain Current Visit: Yes Status: Acute Code(s): R07.9 - CHEST PAIN, UNSPECIFIED (3) Bradycardia Current Visit: Yes Status: Acute Code(s): R00.1 - BRADYCARDIA, UNSPECIFIED (4) Chronic renal insufficiency Current Visit: Yes Status: Acute Code(s): N18.9 - CHRONIC KIDNEY DISEASE, UNSPECIFIED (5) Dizziness Current Visit: Yes Status: Resolved Code(s): R42 - DIZZINESS AND GIDDINESS (6) Macrocytic anemia Current Visit: Yes Status: Acute Code(s): D53.9 - NUTRITIONAL ANEMIA, UNSPECIFIED (7) Obesity (BMI 30-39.9) Current Visit: Yes Status: Acute Assessment & Plan: (1) UTI (urinary tract infection) Current Visit: Yes Status: Acute Assessment & Plan: -Follow culture. - IV Rocephin. - No prior history of UTIs. 05/03 - UC negative- stop antibiotic Code(s): N39.0 - URINARY TRACT INFECTION, SITE NOT SPECIFIED (2) Chest pain Current Visit: Yes Status: Acute Assessment & Plan: - Tele - Cardiology consult - Trops x3 - trend- negative - EKG reviewed 05/03 - + cp today - Cardiology consulted again - Trops x3 - trend- negative - EKG reviewed - pt refused imdur this am and requested nitro x2 Code(s): R07.9 - CHEST PAIN, UNSPECIFIED (3) Bradycardia Current Visit: Yes Status: Acute Assessment & Plan: -Monitor HR trend on tele. - Usually has a HR in the 50s on Coreg per the patient. - Coreg stopped today - TSH WNL. 05/03 - Coreg restarted at 18.75 dose BID Code(s): R00.1 - BRADYCARDIA, UNSPECIFIED (4) Chronic renal insufficiency Current Visit: Yes Status: Acute Assessment & Plan: -Monitor renal function and electrolytes. - Creat 1.97-improved, baseline 1.37 - follows Dr. Baez- nephrology 05/03 - creat 1.86- improved Code(s): N18.9 - CHRONIC KIDNEY DISEASE, UNSPECIFIED (5) Dizziness Current Visit: Yes Status: Resolved Assessment & Plan: - resolved per pt - PT eval Code(s): R42 - DIZZINESS AND GIDDINESS (6) Macrocytic anemia Current Visit: Yes Status: Acute Assessment & Plan: - reviewed B12, folate, TSH. - Hgb 9.6 stable 05/03 - Hgb 9.3 stable - needs f/u Op for colonoscopy/ EGD Code(s): D53.9 - NUTRITIONAL ANEMIA, UNSPECIFIED (7) Obesity (BMI 30-39.9) Current Visit: Yes Status: Acute Assessment & Plan: - BMI 36 - Advised diet and exercise control Code(s): E66.9 - OBESITY, UNSPECIFIED Code(s): E66.9 - OBESITY, UNSPECIFIED - Discharge Discharge Date: 05/03/24 Disposition: Home, Self-Care Condition: Stable Prescriptions: New Carvedilol [Coreg ] 6.25 mg PO BID 30 Days #60 tablet Carvedilol 12.5 mg [Coreg 12.5 mg] 12.5 mg PO BID 30 Days #60 tablet Continue Losartan Potassium 50 mg [Cozaar 50 MG] 100 mg PO DAILY Isosorbide Mononitrate 30 mg [Imdur 30 MG] 120 mg PO DAILY Amlodipine Besylate 5 mg [Norvasc 5 mg] 10 mg PO DAILY Nitroglycerin 0.4 mg Tablet [Nitrostat 0.4 MG Tablet] 0.4 mg SL UD Aspirin 81 mg PO DAILY #0 Atorvastatin Calcium 40 mg PO DAILY Clopidogrel Bisulfate [Plavix] 75 mg PO DAILY Furosemide 20 mg [Lasix 20 mg] 20 mg PO DAILY Glipizide 10 mg [Glucotrol 10 MG] 10 mg PO BID Omeprazole 20 mg PO DAILY Ranolazine 500 MG [Ranexa 500 MG] 1,000 mg PO BID Pentoxifylline 400 mg PO DAILY Metformin HCl 500 mg [Glucophage 500 MG] 500 mg PO BIDWM Venlafaxine HCl ER 75 mg [Effexor XR 75 MG] 75 mg PO QHS Gabapentin [Neurontin ] 100 mg PO BID Diphenhydramine HCl 25 mg [Benadryl 25 mg Capsule] 25 mg PO QHS Discontinued Carvedilol 12.5 mg [Coreg 12.5 mg] 25 mg PO BID Additional Instructions: CHECK YOUR BLOOD PRESSURE AND PULSE DAILY AND KEEP A LOG- TAKE YOUR CARDIOLOGY APPOINTMENT Follow up with: CRIS CORBETT [Primary Care Provider] -
--- NOTE | 2024-05-03 15:03 | PCM.NOTE ---
Date and Time: 05/03/24 1458 Subjective Assessment: 05/02/24 is a 83 year old male with a history of diabetes, CAD (s/p CABG & cardiac stents and follows with Dr. Louis at [place]). He presented to the ED on 05/01/24 with his for evaluation of dizziness and nausea. Patient states he was with his as she was scheduled for procedure. While in the waiting room at our hospital patient developed the onset of symptoms. However upon IP admission evaluation patient's symptoms had resolved. He states that he did not have any chest pain. He does state that he may not have eaten a full meal for breakfast. On physical exam in the ED the patient appeared pale and was noted to have transient bradycardia to the 40s. He denied shortness of breath. No nausea vomiting or diaphoresis. Patient reported to the ED that has been experiencing a ongoing cough, which he attributes that to a viral infection. No vomiting or diarrhea. No rash. No fever. Patient states he otherwise feels well. In the ED, the patient received IV fluids and also IV antibiotics due to a UA suggestive of a possible UTI. He states that his last titration (doubling from 12.5 mg po bid to 25 mg po bid) of Coreg was in November 2023. Early this morning pt states he was feeling fine then developed CP around 11:30. He states he normally takes a nitro and feels better, he also did not have his Imdur this morning and feels it may also be related to that. EKG reviwed and cardiology consulted. Trop x3 ordered. Cp went away after EKG competed. HR, BP and dizziness resolved today. Pt does have a heart murumur and reposrt he is unsure if he has had this in the past. HARPREET improving. Will keep pt another day and trend trops. He denies SOB, abd. pain, N/V/D. 05/03/24 Pt resting inbed this am and explained he was ready to go home. He developed chest pressure and requested nitro be gave. He refused to take Imdur. Coreg held as nitro gave. Bp rechecked an hour later and ok so coreg gave. He still refused to take Imdur until later. He then again developed chest pressure before noon and another nitro gave. Troponins and EKG ordered with first episode of chest pressure. Discussed pt case with cardiology. Will trend trops 2nd trop elevated. Cardiology notified will continue to trend. Pt reports chronic angina and takes nitro at home often. He reported to cardiology a different story in which he only takes twice a week. Pt requested Colace for constipation and Mucinex for nasal congestion be ordered today. Will need to stay another night since trop. elevated. He denies any further concerns at this time. Please see cards note. - Review of Systems Constitutional: No Fever, No Chills Eyes: No Symptoms Ears, Nose, & Throat: No Symptoms Respiratory: No Cough, No Short Of Breath Cardiac: Chest Pain, No Edema, No Syncope Abdominal/Gastrointestinal: No Abdominal Pain, No Nausea, No Vomiting, No Diarrhea Genitourinary Symptoms: No Dysuria Musculoskeletal: No Back Pain, No Neck Pain Skin: No Rash Neurological: No Dizziness, No Focal Weakness, No Sensory Changes Psychological: No Symptoms Endocrine: No Symptoms Hematologic/Lymphatic: No Symptoms Immunological/Allergic: No Symptoms Objective Exam General Appearance: no apparent distress, alert, obese Neurologic Exam: alert, oriented x 3, cooperative, normal mood/affect, nml ce rebellar function, sensation nml, No motor deficits Skin Exam: normal color, warm, dry Eye Exam: PERRL, EOMI, eyes nml inspection Ears, Nose, Throat Exam: normal ENT inspection, pharynx normal, moist mucous membranes Neck Exam: normal inspection, non-tender, supple, full range of motion Respiratory Exam: normal breath sounds, lungs clear, No respiratory distress Cardiovascular Exam: regular rate/rhythm, normal heart sounds Gastrointestinal/Abdomen Exam: soft, No tenderness, No mass Extremity Exam: normal inspection, normal range of motion Back Exam: normal inspection, normal range of motion, No CVA tenderness, No vertebral tenderness Male Genitalia Exam: deferred Rectal Exam: deferred Objective Data Vital Signs: Vital Signs - 24 hr Temp Pulse Resp BP BP Pulse Ox 05/03/24 14:54 95 05/03/24 14:24 71 138/65 05/03/24 12:31 73 140/66 05/03/24 10:30 81 157/72 157/72 05/03/24 07:41 97.8 F 67 18 143/64 99 05/03/24 04:00 97.5 F 60 18 129/60 92 L 05/03/24 00:00 98.0 F 60 18 117/56 95 05/02/24 22:31 62 05/02/24 21:50 153/70 05/02/24 20:00 97.8 F 67 18 120/58 93 L 05/02/24 18:31 93 L 05/02/24 16:00 97.9 F 77 18 119/59 93 L Pain Assessment - Last Documented Pain Intensity 6 Intake and Output: Intake & Output 05/01/24 05/02/24 05/03/24 05/04/24 11:59 11:59 11:59 11:59 Intake Total 2080 1060 240 Output Total 200 700 Balance 1880 360 240 Weight 108.4 kg 107.5 kg 110.2 kg Lab Results: Lab Results-Last 24 Hours 05/02/24 05/02/24 05/02/24 Range/Units 16:49 17:15 21:42 WBC (4.23-9.07) x10^3/uL RBC (4.63-6.08) x10^6/uL Hgb (13.7-17.5) g/dL Hct (40.1-51.0) % MCV (79.0-92.2) fL MCH (25.7-32.2) pg MCHC (32.3-36.5) g/dL RDW (11.6-14.4) % Plt Count (163-337) x10^3/uL MPV (9.4-12.4) fL Sodium (135-145) mmol/L Potassium (3.5-5.1) mmol/L Chloride (98-107) mmol/L Carbon Dioxide (22-30) mmol/L Anion Gap (5-15) MEQ/L BUN (9-20) mg/dL Creatinine (0.66-1.25) mg/dL Estimated GFR ML/MIN Glucose (74-106) mg/dL POC Glucometer 208 H 185 H (74 to 106) mg/dL Calcium (8.4-10.2) mg/dL Total Bilirubin (0.2-1.3) mg/dL AST (17-59) U/L ALT (0-50) U/L Alkaline Phosphatase (38-126) U/L Troponin I 0.016 (0.000-0.033) ng/mL Serum Total Protein (6.3-8.2) g/dL Albumin (3.5-5.0) g/dL 05/03/24 05/03/24 05/03/24 Range/Units 04:51 04:51 06:55 WBC 6.7 (4.23-9.07) x10^3/uL RBC 2.77 L (4.63-6.08) x10^6/uL Hgb 9.3 L (13.7-17.5) g/dL Hct 28.2 L (40.1-51.0) % MCV 101.8 H (79.0-92.2) fL MCH 33.6 H (25.7-32.2) pg MCHC 33.0 (32.3-36.5) g/dL RDW 14.2 (11.6-14.4) % Plt Count 209 (163-337) x10^3/uL MPV 10.3 (9.4-12.4) fL Sodium 137 (135-145) mmol/L Potassium 4.5 (3.5-5.1) mmol/L Chloride 105 (98-107) mmol/L Carbon Dioxide 25 (22-30) mmol/L Anion Gap 11.5 (5-15) MEQ/L BUN 46 H (9-20) mg/dL Creatinine 1.86 H (0.66-1.25) mg/dL Estimated GFR 35.9 ML/MIN Glucose 185 H (74-106) mg/dL POC Glucometer 188 H (74 to 106) mg/dL Calcium 8.8 (8.4-10.2) mg/dL Total Bilirubin 0.60 (0.2-1.3) mg/dL AST 36 (17-59) U/L ALT 47 (0-50) U/L Alkaline Phosphatase 93 (38-126) U/L Troponin I (0.000-0.033) ng/mL Serum Total Protein 6.1 L (6.3-8.2) g/dL Albumin 3.3 L (3.5-5.0) g/dL 05/03/24 05/03/24 05/03/24 Range/Units 10:52 11:42 13:37 WBC (4.23-9.07) x10^3/uL RBC (4.63-6.08) x10^6/uL Hgb (13.7-17.5) g/dL Hct (40.1-51.0) % MCV (79.0-92.2) fL MCH (25.7-32.2) pg MCHC (32.3-36.5) g/dL RDW (11.6-14.4) % Plt Count (163-337) x10^3/uL MPV (9.4-12.4) fL Sodium (135-145) mmol/L Potassium (3.5-5.1) mmol/L Chloride (98-107) mmol/L Carbon Dioxide (22-30) mmol/L Anion Gap (5-15) MEQ/L BUN (9-20) mg/dL Creatinine (0.66-1.25) mg/dL Estimated GFR ML/MIN Glucose (74-106) mg/dL POC Glucometer 251 H (74 to 106) mg/dL Calcium (8.4-10.2) mg/dL Total Bilirubin (0.2-1.3) mg/dL AST (17-59) U/L ALT (0-50) U/L Alkaline Phosphatase (38-126) U/L Troponin I 0.013 0.097 H* (0.000-0.033) ng/mL Serum Total Protein (6.3-8.2) g/dL Albumin (3.5-5.0) g/dL Multi-Disciplinary Progress Notes: Multi-Disciplinary Progress Notes 05/03/24 10:15 Case Management Note by Naomy Rock S/W PATIENT- HE CONTINUES TO DENY ANY NEW NEEDS AT TIME OF DC. HE PLANS TO DC HOME TO HIS PLF AT TIME OF DC Initialized on 05/03/24 10:15 - END OF NOTE Assessment/Plan (1) UTI (urinary tract infection) Current Visit: Yes Status: Acute Code(s): N39.0 - URINARY TRACT INFECTION, SITE NOT SPECIFIED (2) Chest pain Current Visit: Yes Status: Acute Code(s): R07.9 - CHEST PAIN, UNSPECIFIED (3) Bradycardia Current Visit: Yes Status: Acute Code(s): R00.1 - BRADYCARDIA, UNSPECIFIED (4) Chronic renal insufficiency Current Visit: Yes Status: Acute Code(s): N18.9 - CHRONIC KIDNEY DISEASE, UNSPECIFIED (5) Dizziness Current Visit: Yes Status: Resolved Code(s): R42 - DIZZINESS AND GIDDINESS (6) Macrocytic anemia Current Visit: Yes Status: Acute Code(s): D53.9 - NUTRITIONAL ANEMIA, UNSPECIFIED (7) Obesity (BMI 30-39.9) Current Visit: Yes Status: Acute Assessment & Plan: (1) UTI (urinary tract infection) Current Visit: Yes Status: Acute Assessment & Plan: -Follow culture. - IV Rocephin. - No prior history of UTIs. 05/03 - UC negative- stop antibiotic Code(s): N39.0 - URINARY TRACT INFECTION, SITE NOT SPECIFIED (2) Chest pain Current Visit: Yes Status: Acute Assessment & Plan: - Tele - Cardiology consult - Trops x3 - trend- negative - EKG reviewed 05/03 - + cp today - Cardiology consulted again - Trops x3 - trend- 2nd trop 0.097 - EKG reviewed - pt refused imdur this am and requested nitro x2- he later took imdur Code(s): R07.9 - CHEST PAIN, UNSPECIFIED (3) Bradycardia Current Visit: Yes Status: Acute Assessment & Plan: -Monitor HR trend on tele. - Usually has a HR in the 50s on Coreg per the patient. - Coreg stopped today - TSH WNL. 05/03 - Coreg restarted at 18.75 dose BID Code(s): R00.1 - BRADYCARDIA, UNSPECIFIED (4) Chronic renal insufficiency Current Visit: Yes Status: Acute Assessment & Plan: -Monitor renal function and electrolytes. - Creat 1.97-improved, baseline 1.37 - follows Dr. Baez- nephrology 05/03 - creat 1.86- improved Code(s): N18.9 - CHRONIC KIDNEY DISEASE, UNSPECIFIED (5) Dizziness Current Visit: Yes Status: Resolved Assessment & Plan: - resolved per pt - PT eval Code(s): R42 - DIZZINESS AND GIDDINESS (6) Macrocytic anemia Current Visit: Yes Status: Acute Assessment & Plan: - reviewed B12, folate, TSH. - Hgb 9.6 stable 05/03 - Hgb 9.3 stable - needs f/u Op for colonoscopy/ EGD Code(s): D53.9 - NUTRITIONAL ANEMIA, UNSPECIFIED (7) Obesity (BMI 30-39.9) Current Visit: Yes Status: Acute Assessment & Plan: - BMI 36 - Advised diet and exercise control Code(s): E66.9 - OBESITY, UNSPECIFIED Code(s): E66.9 - OBESITY, UNSPECIFIED
[2024-05-03 17:47] VITALS: BP 122/58; PULSE 62; TEMP 97.1; O2SAT 99
--- NOTE | 2024-05-03 18:22 | PCM.DS ---
Discharge Summary Date of Admission: 05/01/24 18:13 Date of Discharge: 05/03/24 Admitting Physician: JIL NAVAS MD Consults: Consults on Case 05/02/24 11:14 Consult Cardiology ROUTINE Primary Care Provider: CRIS CORBETT Allergies Allergies morphine Adverse Reaction (Intermediate, Verified 05/01/24 11:30) Itching Hospital Summary - Hospital Course Hospital Course: 05/02/24 is a 83 year old male with a history of diabetes, CAD (s/p CABG & cardiac stents and follows with Dr. Louis at [facility]). He presented to the ED on 05/01/24 with his for evaluation of dizziness and nausea. Patient states he was with his as she was scheduled for procedure. While in the waiting room at our hospital patient developed the onset of symptoms. However upon IP admission evaluation patient's symptoms had resolved. He states that he did not have any chest pain. He does state that he may not have eaten a full meal for breakfast. On physical exam in the ED the patient appeared pale and was noted to have transient bradycardia to the 40s. He denied shortness of breath. No nausea vomiting or diaphoresis. Patient reported to the ED that has been experiencing a ongoing cough, which he attributes that to a viral infection. No vomiting or diarrhea. No rash. No fever. Patient states he otherwise feels well. In the ED, the patient received IV fluids and also IV antibiotics due to a UA suggestive of a possible UTI. He states that his last titration (doubling from 12.5 mg po bid to 25 mg po bid) of Coreg was in November 2023. Early this morning pt states he was feeling fine then developed CP around 11:30. He states he normally takes a nitro and feels better, he also did not have his Imdur this morning and feels it may also be related to that. EKG reviwed and cardiology con sulted. Trop x3 ordered. Cp went away after EKG competed. HR, BP and dizziness resolved today. Pt does have a heart murumur and reposrt he is unsure if he has had this in the past. HARPREET improving. Will keep pt another day and trend trops. He denies SOB, abd. pain, N/V/D. 05/03/24 Pt resting inbed this am and explained he was ready to go home. He developed chest pressure and requested nitro be gave. He refused to take Imdur. Coreg held as nitro gave. Bp rechecked an hour later and ok so coreg gave. He still refused to take Imdur until later. He then again developed chest pressure before noon an d another nitro gave. Troponins and EKG ordered with first episode of chest pressure. Discussed pt case with cardiology. Will trend trops 2nd trop elevated. Cardiology notified will continue to trend. Pt reports chronic angina and takes nitro at home often. He reported to cardiology a different story in which he only takes twice a week. Pt requested Colace for constipation and Mucinex for nasal congestion be ordered today. Will need to stay another night since trop. elevated. He denies any further concerns at this time. Please see cards note. * 3rd trop elevated and will need to transfer to higher level of care. Discussed with Dr. Navas and JOSE J Sandoval for need of immediate tx to higher level of care. - Vitals & Intake/Output Vital Signs: Vital Signs Temperature 97.1 F 05/03/24 17:47 Pulse Rate 62 05/03/24 17:47 Respiratory Rate 18 05/03/24 17:47 Blood Pressure 122/58 05/03/24 17:47 O2 Sat by Pulse Oximetry 99 05/03/24 17:47 Intake & Output: Intake & Output 05/01/24 05/02/24 05/03/24 05/04/24 11:59 11:59 11:59 11:59 Intake Total 2080 1060 480 Output Total 200 700 550 Balance 1880 360 -70 Weight 108.4 kg 107.5 kg 110.2 kg - Lab Result Diagrams: 05/03/24 04:51 05/03/24 04:51 Lab Results-Last 24 Hrs: Lab Results-Last 24 Hours 05/02/24 05/03/24 05/03/24 Range/Units 21:42 04:51 04:51 WBC 6.7 (4.23-9.07) x10^3/uL RBC 2.77 L (4.63-6.08) x10^6/uL Hgb 9.3 L (13.7-17.5) g/dL Hct 28.2 L (40.1-51.0) % MCV 101.8 H (79.0-92.2) fL MCH 33.6 H (25.7-32.2) pg MCHC 33.0 (32.3-36.5) g/dL RDW 14.2 (11.6-14.4) % Plt Count 209 (163-337) x10^3/uL MPV 10.3 (9.4-12.4) fL Sodium 137 (135-145) mmol/L Potassium 4.5 (3.5-5.1) mmol/L Chloride 105 (98-107) mmol/L Carbon Dioxide 25 (22-30) mmol/L Anion Gap 11.5 (5-15) MEQ/L BUN 46 H (9-20) mg/dL Creatinine 1.86 H (0.66-1.25) mg/dL Estimated GFR 35.9 ML/MIN Glucose 185 H (74-106) mg/dL POC Glucometer 185 H (74 to 106) mg/dL Calcium 8.8 (8.4-10.2) mg/dL Total Bilirubin 0.60 (0.2-1.3) mg/dL AST 36 (17-59) U/L ALT 47 (0-50) U/L Alkaline Phosphatase 93 (38-126) U/L Troponin I (0.000-0.033) ng/mL Serum Total Protein 6.1 L (6.3-8.2) g/dL Albumin 3.3 L (3.5-5.0) g/dL 05/03/24 05/03/24 05/03/24 Range/Units 06:55 10:52 11:42 WBC (4.23-9.07) x10^3/uL RBC (4.63-6.08) x10^6/uL Hgb (13.7-17.5) g/dL Hct (40.1-51.0) % MCV (79.0-92.2) fL MCH (25.7-32.2) pg MCHC (32.3-36.5) g/dL RDW (11.6-14.4) % Plt Count (163-337) x10^3/uL MPV (9.4-12.4) fL Sodium (135-145) mmol/L Potassium (3.5-5.1) mmol/L Chloride (98-107) mmol/L Carbon Dioxide (22-30) mmol/L Anion Gap (5-15) MEQ/L BUN (9-20) mg/dL Creatinine (0.66-1.25) mg/dL Estimated GFR ML/MIN Glucose (74-106) mg/dL POC Glucometer 188 H 251 H (74 to 106) mg/dL Calcium (8.4-10.2) mg/dL Total Bilirubin (0.2-1.3) mg/dL AST (17-59) U/L ALT (0-50) U/L Alkaline Phosphatase (38-126) U/L Troponin I 0.013 (0.000-0.033) ng/mL Serum Total Protein (6.3-8.2) g/dL Albumin (3.5-5.0) g/dL 05/03/24 05/03/24 05/03/24 Range/Units 13:37 16:50 16:58 WBC (4.23-9.07) x10^3/uL RBC (4.63-6.08) x10^6/uL Hgb (13.7-17.5) g/dL Hct (40.1-51.0) % MCV (79.0-92.2) fL MCH (25.7-32.2) pg MCHC (32.3-36.5) g/dL RDW (11.6-14.4) % Plt Count (163-337) x10^3/uL MPV (9.4-12.4) fL Sodium (135-145) mmol/L Potassium (3.5-5.1) mmol/L Chloride (98-107) mmol/L Carbon Dioxide (22-30) mmol/L Anion Gap (5-15) MEQ/L BUN (9-20) mg/dL Creatinine (0.66-1.25) mg/dL Estimated GFR ML/MIN Glucose (74-106) mg/dL POC Glucometer 292 H (74 to 106) mg/dL Calcium (8.4-10.2) mg/dL Total Bilirubin (0.2-1.3) mg/dL AST (17-59) U/L ALT (0-50) U/L Alkaline Phosphatase (38-126) U/L Troponin I 0.097 H* 2.130 H* (0.000-0.033) ng/mL Serum Total Protein (6.3-8.2) g/dL Albumin (3.5-5.0) g/dL Micro Results-Entire Visit: Microbiology 05/01/24 15:18 Urine Culture - Final Clean Catch Midstream <10K NORMAL SKIN FRANK PROBABLE SKIN CONTAMINANT Accuchecks Date 05/03/24 Date 05/03/24 Date 05/03/24 - Procedures and Test Procedures and Tests throughout Hospitalization: Therapy Orders & Screens 05/01/24 19:00 EKG REPEAT IN AM Comment: Diagnosis: ACS, dizziness, hypotension 05/02/24 09:10 PT Eval & Treat ( Order) ONCE Reason for Eval:: dizziness Diagnosis: ACS, dizziness, hypotension 05/02/24 10:59 EKG ROUTINE Comment: Diagnosis: ACS, dizziness, hypotension EKG Reason: Chest Pain 05/03/24 10:19 EKG STAT Comment: chest pressure Diagnosis: ACS, dizziness, hypotension EKG Reason: Other Discharge Exam General Appearance: no apparent distress, alert, obese Neurologic Exam: alert, oriented x 3, cooperative, normal mood/affect, nml cer ebellar function, sensation nml, No motor deficits Eye Exam: PERRL, EOMI, eyes nml inspection Ears, Nose, Throat Exam: normal ENT inspection, pharynx normal, moist mucous membranes Neck Exam: normal inspection, non-tender, supple, full range of motion Respiratory Exam: normal breath sounds, lungs clear, No respiratory distress Cardiovascular Exam: regular rate/rhythm, normal heart sounds Gastrointestinal/Abdomen Exam: soft, No tenderness, No mass Male Genitalia Exam: deferred Rectal Exam: deferred Back Exam: normal inspection, normal range of motion, No CVA tenderness, No vertebral tenderness Extremity Exam: normal inspection, normal range of motion Skin Exam: normal color, warm, dry Final Diagnosis/Problem List - Final Discharge Diagnosis/Problem (1) UTI (urinary tract infection) Current Visit: Yes Status: Acute Code(s): N39.0 - URINARY TRACT INFECTION, SITE NOT SPECIFIED (2) Chest pain Current Visit: Yes Status: Acute Code(s): R07.9 - CHEST PAIN, UNSPECIFIED (3) Bradycardia Current Visit: Yes Status: Acute Code(s): R00.1 - BRADYCARDIA, UNSPECIFIED (4) Chronic renal insufficiency Current Visit: Yes Status: Acute Code(s): N18.9 - CHRONIC KIDNEY DISEASE, UNSPECIFIED (5) Dizziness Current Visit: Yes Status: Resolved Code(s): R42 - DIZZINESS AND GIDDINESS (6) Macrocytic anemia Current Visit: Yes Status: Acute Code(s): D53.9 - NUTRITIONAL ANEMIA, UNSPECIFIED (7) Obesity (BMI 30-39.9) Current Visit: Yes Status: Acute Assessment & Plan: (1) UTI (urinary tract infection) Current Visit: Yes Status: Acute Assessment & Plan: -Follow culture. - IV Rocephin. - No prior history of UTIs. 05/03 - UC negative- stop antibiotic Code(s): N39.0 - URINARY TRACT INFECTION, SITE NOT SPECIFIED (2) Chest pain Current Visit: Yes Status: Acute Assessment & Plan: - Tele - Cardiology consult - Trops x3 - trend- negative - EKG reviewed 05/03 - + cp today - Cardiology consulted again after reviewing EKG, + Chest pressure - Trops x3 - trend- 2nd trop 0.097, 3rd trop 2.10- transferring to higher level of care. - EKG reviewed - pt refused imdur this am and requested nitro x2- he later took imdur - Dr. Navas spoke with [facility]iology at [facility]- advised to start Therapeutic Lovenox- this was started. Code(s): R07.9 - CHEST PAIN, UNSPECIFIED (3) Bradycardia Current Visit: Yes Status: Acute Assessment & Plan: -Monitor HR trend on tele. - Usually has a HR in the 50s on Coreg per the patient. - Coreg stopped today - TSH WNL. 05/03 - Coreg restarted at 18.75 dose BID Code(s): R00.1 - BRADYCARDIA, UNSPECIFIED (4) Chronic renal insufficiency Current Visit: Yes Status: Acute Assessment & Plan: -Monitor renal function and electrolytes. - Creat 1.97-improved, baseline 1.37 - follows Dr. Baez- nephrology 05/03 - creat 1.86- improved Code(s): N18.9 - CHRONIC KIDNEY DISEASE, UNSPECIFIED (5) Dizziness Current Visit: Yes Status: Resolved Assessment & Plan: - resolved per pt - PT eval Code(s): R42 - DIZZINESS AND GIDDINESS (6) Macrocytic anemia Current Visit: Yes Status: Acute Assessment & Plan: - reviewed B12, folate, TSH. - Hgb 9.6 stable 05/03 - Hgb 9.3 stable - needs f/u Op for colonoscopy/ EGD Code(s): D53.9 - NUTRITIONAL ANEMIA, UNSPECIFIED (7) Obesity (BMI 30-39.9) Current Visit: Yes Status: Acute Assessment & Plan: - BMI 36 - Advised diet and exercise control Code(s): E66.9 - OBESITY, UNSPECIFIED Code(s): E66.9 - OBESITY, UNSPECIFIED Code(s): E66.9 - OBESITY, UNSPECIFIED - Discharge Discharge Date: 05/03/24 Disposition: DC TO OTHER HOSP Condition: Stable Prescriptions: Continue Losartan Potassium 50 mg [Cozaar 50 MG] 100 mg PO DAILY Isosorbide Mononitrate 30 mg [Imdur 30 MG] 120 mg PO DAILY Amlodipine Besylate 5 mg [Norvasc 5 mg] 10 mg PO DAILY Nitroglycerin 0.4 mg Tablet [Nitrostat 0.4 MG Tablet] 0.4 mg SL UD Aspirin 81 mg PO DAILY #0 Atorvastatin Calcium 40 mg PO DAILY Clopidogrel Bisulfate [Plavix] 75 mg PO DAILY Furosemide 20 mg [Lasix 20 mg] 20 mg PO DAILY Glipizide 10 mg [Glucotrol 10 MG] 10 mg PO BID Omeprazole 20 mg PO DAILY Ranolazine 500 MG [Ranexa 500 MG] 1,000 mg PO BID Pentoxifylline 400 mg PO DAILY Metformin HCl 500 mg [Glucophage 500 MG] 500 mg PO BIDWM Venlafaxine HCl ER 75 mg [Effexor XR 75 MG] 75 mg PO QHS Gabapentin [Neurontin ] 100 mg PO BID Diphenhydramine HCl 25 mg [Benadryl 25 mg Capsule] 25 mg PO QHS Discontinued Carvedilol 12.5 mg [Coreg 12.5 mg] 25 mg PO BID Additional Instructions: CHECK YOUR BLOOD PRESSURE AND PULSE DAILY AND KEEP A LOG- TAKE YOUR CARDIOLOGY APPOINTMENT Follow up with: CRIS CORBETT [Primary Care Provider] - LITTLE LOUIS MD [CONSULTING PHYSICIAN] - 1 Week
[2024-05-03] MEDS: ENOXAPARIN SODIUM SQ SCH (18:39)
[2024-05-03] MEDS ORDERED: Mucinex 600MG ER Tabs PO SCH (22:00)
== END 2024-05-03 19:55 ==
LOC: ED 11:18 → MED SURG 18:13
PROVIDERS: ADMIT Internal Medicine; ATTEND Internal Medicine
DX: N39.0 Urinary tract infection, site not specified (principal); R07.9 Chest pain, unspecified; R00.1 Bradycardia, unspecified; E11.22 Type 2 diabetes mellitus with diabetic chronic kidney disease; I12.9 Hypertensive chronic kidney disease with stage 1 through stage 4 chronic kidney disease, or unspecified chronic kidney disease; N18.9 Chronic kidney disease, unspecified; R42 Dizziness and giddiness; D53.9 Nutritional anemia, unspecified; E66.9 Obesity, unspecified; R79.89 Other specified abnormal findings of blood chemistry; I25.118 Atherosclerotic heart disease of native coronary artery with other forms of angina pectoris; I25.2 Old myocardial infarction; Z79.899 Other long term (current) drug therapy; Z79.01 Long term (current) use of anticoagulants; Z95.0 Presence of cardiac pacemaker; Z85.46 Personal history of malignant neoplasm of prostate
CPT/HCPCS: 0241U; 36000; 36415; 70450; 71045; 80048; 80053; 80307; 81001; 82077; 82607; 82746; 82947; 83036; 83605; 83735; 83880; 84443; 84484; 85025; 85027; 87086; 93005; 93041; 93268; 94760; 94762; 96360; 96365; 97161; 99285; G0378; Q3014; J0696; J1650; J1817; A9270-GY

== ENCOUNTER 2024-08-17 21:58 | Emergency (ER) | payer MEDICARE, OTHER ==
--- NOTE | 2024-08-17 22:01 | ERPHSYRPT ---
- History of Present Illness Time Seen by Provider: 08/17/24 22:01 Historian: patient, family Exam Limitations: no limitations Physician History: Is an 83-year-old white female patient of Dr. Burnett who presents by private vehicle to the emergency department escorted by his family member. Patient noticed chest pain that is his typical sharp central substernal nonradiating pain that he takes nitroglycerin for and began at 630 prior to arrival. 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 He took 5-6 nitroglycerin tablets which did not seem to help. They could have been old tablets per his report. Patient states that he has a cardiac catheterization scheduled at [facility] in [facility] on 09/03/2024. Patient has history of diabetes, coronary artery disease including myocardial infarction, CABG, stents and is on Plavix. Patient has a history of hypertension, hyperlipidemia, gastroesophageal reflux disease, CHF, COPD and peripheral neuropathy. Timing/Duration: today Activities at Onset: none Quality: sharpness Location: substernal, central Chest Pain Radiation: no radiation Severity of Pain-Max: mild Severity of Pain-Current: mild Modifying Factors: Improves With: nothing Associated Symptoms: nausea, No vomiting, No heartburn, No abdominal pain, No shortness of breath, No cough Prior Chest Pain/Cardiac Workup: no prior chest pain Nitro Today/Relief: provided at home, no relief (Patient took 5-6 nitroglycerin prior to arrival) Aspirin Treatment Today: 81 mg x 4, provided by ED Allergies/Adverse Reactions: morphine Adverse Reaction (Intermediate, Verified 08/17/24 22:08) Itching Home Medications: Amlodipine Besylate 5 mg [Norvasc 5 mg] 10 mg PO DAILY 10/07/20 [History] Isosorbide Mononitrate 30 mg [Imdur 30 MG] 120 mg PO DAILY 10/07/20 [History] Losartan Potassium 50 mg [Cozaar 50 MG] 100 mg PO DAILY 10/07/20 [History] Nitroglycerin 0.4 mg Tablet [Nitrostat 0.4 MG Tablet] 0.4 mg SL UD 10/07/20 [History] Atorvastatin Calcium 40 mg PO DAILY 11/18/23 [History] Clopidogrel Bisulfate [Plavix] 75 mg PO DAILY 11/18/23 [History] Furosemide 20 mg [Lasix 20 mg] 20 mg PO DAILY 11/18/23 [History] Glipizide 10 mg [Glucotrol 10 MG] 10 mg PO DAILY 11/18/23 [History] Pentoxifylline 400 mg PO DAILY 11/18/23 [History] Ranolazine 500 MG [Ranexa 500 MG] 1,000 mg PO BID 11/18/23 [History] Gabapentin [Neurontin ] 100 mg PO TID 05/01/24 [History] Venlafaxine HCl ER 75 mg [Effexor XR 75 MG] 75 mg PO QHS 05/01/24 [History] Carvedilol 12.5 mg [Coreg 12.5 mg] 37.5 mg PO BID 08/17/24 [History] Ubidecarenone/Vit E Acet [Co Q-10 100 mg Softgel] 1 each PO DAILY 08/17/24 [History] Vitamin B Complex 1 each PO DAILY 08/17/24 [History] Hx Tetanus, Diphtheria Vaccination/Date Given: Yes Hx Influenza Vaccination/Date Given: Yes Hx Pneumococcal Vaccination/Date Given: Yes Travel Risk - International Travel Have you traveled outside of the country in past 3 weeks: No - Emerging Infectious Disease Are you exhibiting symptoms associated with any current EIDs: Yes Symptoms: Cough: New Onset, Fever - Review of Systems Constitutional: No Symptoms Eyes: No Symptoms Ears, Nose, & Throat: No Symptoms Respiratory: No Symptoms Cardiac: Chest Pain Abdominal/Gastrointestinal: No Symptoms Genitourinary Symptoms: No Symptoms Musculoskeletal: No Symptoms Skin: No Symptoms Neurological: No Symptoms Psychological: No Symptoms Endocrine: No Symptoms Hematologic/Lymphatic: No Symptoms Immunological/Allergic: No Symptoms All Other Systems: Reviewed and Negative - Past Medical History Pertinent Past Medical History: Yes Neurological History: Peripheral Neuropathy ENT History: No Pertinent History Cardiac History: Angina, Hypertension, Myocardial Infarction (HI) Respiratory History: CHF, COPD, Other Endocrine Medical History: Diabetes Type II Musculoskeletal History: No Pertinent History, Osteoarthritis GI Medical History: No Pertinent History History: Other Psycho-Social History: No Pertinent History Male Reproductive Disorders: Prostate Cancer Other Medical History: 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 R TSA, PAST CARDIAC REHAB.HX KIDNEY CANCER. HX PROSTATE CANCER - Past Surgical History Past Surgical History: Yes Neuro Surgical History: No Pertinent History Cardiac: CABG, Cardiac Catheterization Respiratory: No Pertinent History Gastrointestinal: Hernia Repair Genitourinary: No Pertinent History, Kidney Surgery Musculoskeletal: No Pertinent History Male Surgical History: Prostate Surgery Other Surgical History: cancer removed from kidney partial nephrectomy and prostatectomy. mesh to right flank area. - Social History Smoking Status: Never smoker Exposure to second hand smoke: No Drug Use: none Patient Lives Alone: No - Social Determinants of Health Will the patient participate in the screening: Yes Do you worry about a steady place to live?: No In the past 12 months,have you had to go without utilities?: No Transportation Issues: No Has anyone in your support network made you feel unsafe?: No Have you or anyone in your house had to go without enough: No - Nursing Vital Signs Nursing Vital Signs: Initial Vital Signs Temperature 97.5 F 08/17/24 22:00 Pulse Rate 103 H 08/17/24 22:00 Respiratory Rate 18 08/17/24 22:00 Blood Pressure 169/94 08/17/24 22:00 O2 Sat by Pulse Oximetry 97 08/17/24 22:00 Pain Scale Pain Intensity 4 - Physical Exam General Appearance: no apparent distress, alert, anxiety Eye Exam: PERRL/EOMI, eyes nml inspection Ears, Nose, Throat Exam: normal ENT inspection, moist mucous membranes Neck Exam: normal inspection, non-tender, supple, full range of motion Respiratory Exam: normal breath sounds, chest tenderness, lungs clear, airway intact, No respiratory distress Cardiovascular Exam: regular rate/rhythm, normal heart sounds, normal peripheral pulses Gastrointestinal/Abdomen Exam: soft, normal bowel sounds, No tenderness Rectal Exam: not done Back Exam: normal inspection, normal range of motion, No CVA tenderness, No vertebral tenderness Extremity Exam: normal inspection, normal range of motion, pelvis stable Neurologic Exam: alert, oriented x 3, cooperative, stencil typist II-XII nml as tested, nml cerebellar function, nml station & gait, sensation nml Skin Exam: normal color, warm, dry Lymphatic Exam: No adenopathy SpO2 Interpretation: normal O2 Delivery: Room Air - Course Nursing assessment & vital signs reviewed: Yes EKG Interpreted by Me: RATE, Sinus Tach, NORMAL AXIS, NORMAL INTERVALS, Right Bundle Branch Block, Other (Today's twelve-lead EKG does not show any acute ischemic changes on my interpretation. There is no significant change from the twelve-lead EKG dated 05/03/2024. QTc is 5-7) Ordered Tests: Active Orders 24 hr Category Date Time Status EKG-ER Only STAT Care 08/17/24 22:08 Active IV Insertion STAT Care 08/17/24 22:08 Active Pulse Oximetry (ED) STAT Care 08/17/24 22:08 Active CHEST 1 VIEW (PORTABLE) Stat Exams 08/17/24 22:08 Completed CBC W DIFF Stat Lab 08/17/24 22:15 Completed CMP Stat Lab 08/17/24 22:15 Completed MAGNESIUM Stat Lab 08/17/24 22:15 Completed NT PRO BNPII Stat Lab 08/17/24 22:15 Completed PROTIME WITH INR Stat Lab 08/17/24 22:15 Completed TROPONIN Q4H Lab 08/17/24 22:15 Completed TROPONIN Q4H Lab 08/18/24 02:15 Ordered TROPONIN Q4H Lab 08/18/24 06:15 Ordered Medication Summary Discontinued Medications Generic Name Dose Route Start Last Admin Trade Name Freq PRN Reason Stop Dose Admin Nitroglycerin 0.4 mg 08/17/24 22:16 08/17/24 22:22 Nitroglycerin 0.4 Mg (Ed) 0.4 Mg Tab.Subl SL 08/17/24 22:17 0.4 mg STAT ONE Administration Nitroglycerin Confirm 08/17/24 22:21 Nitroglycerin 0.4 Mg (Ed) 0.4 Mg Tab.Subl Administered 08/17/24 22:22 Dose 0.4 mg SL .STK-MED ONE Ondansetron HCl 4 mg 08/17/24 22:16 08/17/24 22:22 Ondansetron Hcl 4 Mg/2 Ml Vial IV 08/17/24 22:17 4 mg STAT ONE Administration Ondansetron HCl Confirm 08/17/24 22:21 Ondansetron Hcl 4 Mg/2 Ml Vial Administered 08/17/24 22:22 Dose 4 mg .ROUTE .STK-MED ONE Lab/Rad Data: Laboratory Result Diagrams 08/17/24 22:15 08/17/24 22:15 Laboratory Results 08/17/24 08/17/2408/17/24 Range/Units 22:15 22:15 22:15 WBC (4.23-9.07) x10^3/uL RBC (4.63-6.08) x10^6/uL Hgb (13.7-17.5) g/dL Hct (40.1-51.0) % MCV (79.0-92.2) fL MCH (25.7-32.2) pg MCHC (32.3-36.5) g/dL RDW (11.6-14.4) % Plt Count (163-337) x10^3/uL MPV (9.4-12.4) fL Gran % (34.0-67.9) % Immature Gran % (Auto) (0.001-0.429) % Nucleat RBC Rel Count (0.00-0.2) % Eos # (Auto) (0.04-0.54) x10^3/uL Immature Gran # (Auto) (0.001-0.031) x10^3u/L Absolute Lymphs (auto) (1.32-3.57) x10^3/uL Absolute Monos (auto) (0.30-0.82) x10^3/uL Absolute Nucleated RBC (0.00-0.012) x10^3u/L Lymphocytes % (21.8-53.1) % Monocytes % (5.3-12.2) % Eosinophils % (0.8-7.0) % Basophils % (0.2-1.2) % Absolute Granulocytes (1.78-5.38) x10^3/uL Basophils # (0.01-0.08) x10^3/uL PT 10.4 (9.4-12.5) SECONDS INR 0.95 (0.8-3.0) Sodium 138 (135-145) mmol/L Potassium 4.4 (3.5-5.1) mmol/L Chloride 105 (98-107) mmol/L Carbon Dioxide 21 L (22-30) mmol/L Anion Gap 16.6 H (5-15) MEQ/L BUN 39 H (9-20) mg/dL Creatinine 1.45 H (0.66-1.25) mg/dL Estimated GFR 48.4 ML/MIN Glucose 412 H (74-106) mg/dL Calcium 9.7 (8.4-10.2) mg/dL Magnesium 2.0 (1.6-2.3) mg/dL Total Bilirubin 0.70 (0.2-1.3) mg/dL AST 34 (17-59) U/L ALT 33 (0-50) U/L Alkaline Phosphatase 128 H (38-126) U/L Troponin I 0.039 H* (0.000-0.033) ng/mL NT-Pro-B Natriuret Pep 886 (<300) pg/mL Serum Total Protein 6.7 (6.3-8.2) g/dL Albumin 4.1 (3.5-5.0) g/dL 08/17/24 Range/Units 22:15 WBC 6.5 (4.23-9.07) x10^3/uL RBC 3.49 L (4.63-6.08) x10^6/uL Hgb 11.9 L (13.7-17.5) g/dL Hct 35.7 L (40.1-51.0) % MCV 102.3 H (79.0-92.2) fL MCH 34.1 H (25.7-32.2) pg MCHC 33.3 (32.3-36.5) g/dL RDW 13.9 (11.6-14.4) % Plt Count 194 (163-337) x10^3/uL MPV 11.1 (9.4-12.4) fL Gran % 81.0 H (34.0-67.9) % Immature Gran % (Auto) 0.5 H (0.001-0.429) % Nucleat RBC Rel Count 0.0 (0.00-0.2) % Eos # (Auto) 0 L (0.04-0.54) x10^3/uL Immature Gran # (Auto) 0.03 (0.001-0.031) x10^3u/L Absolute Lymphs (auto) 0.82 L (1.32-3.57) x10^3/uL Absolute Monos (auto) 0.38 (0.30-0.82) x10^3/uL Absolute Nucleated RBC 0.00 (0.00-0.012) x10^3u/L Lymphocytes % 12.6 L (21.8-53.1) % Monocytes % 5.9 (5.3-12.2) % Eosinophils % 0.0 L (0.8-7.0) % Basophils % 0.0 L (0.2-1.2) % Absolute Granulocytes 5.26 (1.78-5.38) x10^3/uL Basophils # 0 L (0.01-0.08) x10^3/uL PT (9.4-12.5) SECONDS INR (0.8-3.0) Sodium (135-145) mmol/L Potassium (3.5-5.1) mmol/L Chloride (98-107) mmol/L Carbon Dioxide (22-30) mmol/L Anion Gap (5-15) MEQ/L BUN (9-20) mg/dL Creatinine (0.66-1.25) mg/dL Estimated GFR ML/MIN Glucose (74-106) mg/dL Calcium (8.4-10.2) mg/dL Magnesium (1.6-2.3) mg/dL Total Bilirubin (0.2-1.3) mg/dL AST (17-59) U/L ALT (0-50) U/L Alkaline Phosphatase (38-126) U/L Troponin I (0.000-0.033) ng/mL NT-Pro-B Natriuret Pep (<300) pg/mL Serum Total Protein (6.3-8.2) g/dL Albumin (3.5-5.0) g/dL - Progress Progress: improved, re-examined Air Movement: good Progress Note: 08/17/24 22:58 My medical decision making and the assignment of moderate to high complexity on this patient's medical issue today is based on review of the patient's past medical history, review of the patient's medication list, reviewed patient drug allergy list, history present illness and physical findings on examination. The workup in this patient includes placement of intravenous line, twelve-lead EKG, CBC, CMP, troponin level, PT/INR, chest x-ray, magnesium level. Differential diagnosis includes but is not limited to myocardial infarction, pneumonia, electrolyte abnormalities, arrhythmia. 08/17/24 23:24 I interpreted the patient's preliminary chest x-ray report. There is no evidence of any acute cardiopulmonary process. 08/18/24 00:42 I interpreted the patient's laboratory data results. Patient does have elevated troponin level and persistent chest pain. No other acute, emergent medical issues based on his laboratory data results. This patient has significant coronary artery disease and has a cardiac catheterization scheduled for 09/03/2024. His pain has improved but is not resolved. Patient prefers to be at [facility] where his enterprise application architect is and where the cardiac catheterization is scheduled to be performed. I spoke with the hospitalist at [facility], Dr. Sagastume. I reviewed the patient history, presenting complaint, physical findings on examination, clinical response to our interventions and the laboratory and radiographic as well as EKG results of our workup. She accepts the patient in transfer. I am told by transfer center that they do have cardiac beds open and available. Blood Culture(s) Obtained: No Antibiotics given: No Counseled pt/family regarding: lab results, diagnosis, rad results Medical Desision Making - Independent Historian Additional History obtained from: Family - Diagnostic Testing Diagnostic test were ordered, analyzed, and reviewed by me: Yes Radiological Interpretation: Reviewed by me, Teleradiologist Report - Risk of complications The pt has a high risk of morbidity or mortality based on: Decision regarding hospitilization or escalation of hosp level of care - Departure Departure Disposition: Home Clinical Impression: Elevated troponin, Chest pain, Non-STEMI (non-ST elevated myocardial infarction) Condition: Stable Critical Care Time: No Referrals: CRIS BURNETT [Primary Care Provider] - Follow up/PCP as directed
[2024-08-17 22:08] VITALS: TEMP 97.5
[2024-08-17] MEDS ORDERED: Zofran 4 MG/2 ML VIAL ONE (22:21)
[2024-08-17] MEDS ORDERED: Nitrostat 0.4 MG (ED) SL ONE (22:21)
[2024-08-17] MEDS: Nitrostat 0.4 MG (ED) SL ONE (22:22)
[2024-08-17] MEDS: Zofran 4 MG/2 ML VIAL IV ONE (22:22)
[2024-08-17 22:30] LABS: Absolute Neutrophil Ct (ANC) 5.26 x10^3/uL (1.78-5.38); Basophil (Absolute #) 0 x10^3/uL (0.01-0.08); Eosinophil (Absolute #) 0 x10^3/uL (0.04-0.54); Hematocrit 35.7 % (40.1-51.0); Hemoglobin 11.9 g/dL (13.7-17.5); IMMATURE GRAN # 0.03 x10^3u/L (0.001-0.031); IMMATURE GRAN % 0.5 % (0.001-0.429); Lymphocyte (Absolute #) 0.82 x10^3/uL (1.32-3.57); Lymphocytes % 12.6 % (21.8-53.1); Mean Cell Volume 102.3 fL (79.0-92.2); Mean Corpuscular Hemoglobin 34.1 pg (25.7-32.2); Mean Corpuscular Hgb Concent. 33.3 g/dL (32.3-36.5); Mean Platelet Volume 11.1 fL (9.4-12.4); Monocyte (Absolute #) 0.38 x10^3/uL (0.30-0.82); Monocytes % 5.9 % (5.3-12.2); Platelet Count 194 x10^3/uL (163-337); Red Blood Count 3.49 x10^6/uL (4.63-6.08); Red Cell Distribution Width 13.9 % (11.6-14.4); White Blood Count 6.5 x10^3/uL (4.23-9.07)
[2024-08-17 22:37] LABS: INR 0.95 (0.8-3.0); PROTIME 10.4 SECONDS (9.4-12.5)
[2024-08-17 22:38] LABS: ALBUMIN 4.1 g/dL (3.5-5.0); ANION GAP 16.6 MEQ/L (5-15); BILIRUBIN,TOTAL 0.7 mg/dL (0.2-1.3); Calcium 9.7 mg/dL (8.4-10.2); Creatinine 1 1.45 mg/dL (0.66-1.25); EST GLOMERULAR FILTRATION RATE 48.4 ML/MIN; Potassium 4.4 mmol/L (3.5-5.1); Total Protein 6.7 g/dL (6.3-8.2)
[2024-08-17 23:10] LABS: TROPONIN 0.039 ng/mL (0.000-0.033)
--- NOTE | 2024-08-17 23:43 | XRAY ---
Indication: Chest pain. Comparison: May 01, 2024 Portable chest again demonstrates minimal left midlung fibrosis/scarring. No focal infiltrate, consolidation, or large effusion. Heart not enlarged again with cardiac valve replacement surgery. Bony thorax intact again with osteopenia, degenerative changes, and right shoulder arthroplasty. Impression: Continued nonacute chest with chronic features.
[2024-08-18 01:12] VITALS: O2SAT 97
[2024-08-18 02:37] VITALS: BP 140/98; PULSE 82; RESP 16
== END 2024-08-18 02:54 | disposition short-term general hospital (02) ==
LOC: ED 21:58
DX: I21.4 Non-ST elevation (NSTEMI) myocardial infarction (principal); R77.8 Other specified abnormalities of plasma proteins; R07.9 Chest pain, unspecified; E11.42 Type 2 diabetes mellitus with diabetic polyneuropathy; I11.0 Hypertensive heart disease with heart failure; I50.9 Heart failure, unspecified; E78.5 Hyperlipidemia, unspecified; Z79.02 Long term (current) use of antithrombotics/antiplatelets; Z79.84 Long term (current) use of oral hypoglycemic drugs; Z79.899 Other long term (current) drug therapy
CPT/HCPCS: 36000; 36415; 71045; 80053; 83735; 83880; 84484; 85025; 85610; 93005; 94760; 96374; 99285; J2405; A9270-GY

== ENCOUNTER 2025-07-30 10:45 | Day surgery (SDC) | payer MEDICARE, OTHER ==
[2025-07-30] MEDS: TETRACAINE 0.5% STERI-UNIT SOL OP ONE ×2 (11:21→11:37)
[2025-07-30] MEDS: Ak-Dilate OPHTHALMIC*** 0.71 ML, Cyclogyl 1% OPHTH SOL 0.71 ML, GATIFLOXACIN 0.5% OPHTH... OP SCH (11:22)
[2025-07-30 11:34] LABS: Calcium 9.3 mg/dL (8.4-10.2); Carbon Dioxide 28.0 mmol/L (22-30); Creatinine 1 1.45 mg/dL (0.66-1.25); EST GLOMERULAR FILTRATION RATE 48.1 ML/MIN; Glucose 175.0 mg/dL (74-106); Potassium 4.8 mmol/L (3.5-5.1)
[2025-07-30] MEDS ORDERED: TRIAMCINOLONE 15 MG/ML INJ INTRAOP NR (12:00)
[2025-07-30] MEDS ORDERED: VIGAMOX/BSS 0.15% SYR IO NR (12:00)
[2025-07-30] MEDS ORDERED: DEXMEDETOMIDINE 80 MCG/20ML-NS IV NR (12:00)
[2025-07-30] MEDS ORDERED: BETADINE 5% OPHTHALMIC 30 ML OP NR (12:00)
[2025-07-30] MEDS ORDERED: DEXTENZA OP NR (12:00)
[2025-07-30] MEDS ORDERED: OMIDRIA 1-0.3% VIAL IO NR (12:00)
[2025-07-30] MEDS ORDERED: Zofran 4 MG/2 ML VIAL IV PRN (12:00)
[2025-07-30] MEDS ORDERED: Versed 2 MG/2 ML Injection ONE (13:31)
[2025-07-30 14:03] VITALS: RESP 18; TEMP 97
[2025-07-30] MEDS: ACETAZOLAMIDE 250 MG TABLET PO ONE (14:09)
[2025-07-30 14:12] VITALS: BP 141/74; PULSE 60; O2SAT 93
== END 2025-07-30 14:21 | disposition home or self-care (01) ==
LOC: SDC 10:45
PROVIDERS: ATTEND Ophthalmology
DX: H25.812 Combined forms of age-related cataract, left eye (principal); I10 Essential (primary) hypertension; E78.00 Pure hypercholesterolemia, unspecified

== ENCOUNTER 2025-09-03 06:18 | Day surgery (SDC) | payer MEDICARE, OTHER ==
[2025-09-03 06:51] VITALS: RESP 18
[2025-09-03] MEDS: TETRACAINE 0.5% STERI-UNIT SOL OP ONE ×2 (06:54)
[2025-09-03] MEDS: Ak-Dilate OPHTHALMIC*** 0.71 ML, Cyclogyl 1% OPHTH SOL 0.71 ML, GATIFLOXACIN 0.5% OPHTH... OP SCH (06:55)
[2025-09-03 07:16] LABS: Calcium 9.2 mg/dL (8.4-10.2); Carbon Dioxide 28.0 mmol/L (22-30); Creatinine 1 1.32 mg/dL (0.66-1.25); EST GLOMERULAR FILTRATION RATE 53.9 ML/MIN; Glucose 107.0 mg/dL (74-106); Potassium 4.3 mmol/L (3.5-5.1)
[2025-09-03] MEDS ORDERED: propofoL IV ONE (08:02)
[2025-09-03 08:39] VITALS: TEMP 97.4; O2SAT 93
[2025-09-03] MEDS: ACETAZOLAMIDE 250 MG TABLET PO ONE (08:43)
[2025-09-03 08:50] VITALS: BP 156/67; PULSE 60
[2025-09-03] MEDS ORDERED: DEXTENZA OP NR (09:00)
[2025-09-03] MEDS ORDERED: OMIDRIA 1-0.3% VIAL IO NR (09:00)
[2025-09-03] MEDS ORDERED: VIGAMOX/BSS 0.15% SYR IO NR (09:00)
[2025-09-03] MEDS ORDERED: Zofran 4 MG/2 ML VIAL IV PRN (09:00)
[2025-09-03] MEDS ORDERED: BETADINE 5% OPHTHALMIC 30 ML OP NR (09:00)
[2025-09-03] MEDS ORDERED: DEXMEDETOMIDINE 80 MCG/20ML-NS IV NR (09:00)
[2025-09-03] MEDS ORDERED: TRIAMCINOLONE 15 MG/ML INJ INTRAOP NR (09:00)
== END 2025-09-03 09:04 | disposition home or self-care (01) ==
LOC: SDC 06:18
PROVIDERS: ATTEND Ophthalmology
DX: H25.811 Combined forms of age-related cataract, right eye (principal); I10 Essential (primary) hypertension; E11.9 Type 2 diabetes mellitus without complications